=== PATIENT | male | born 1965 | race Caucasian/White ===

== ENCOUNTER → 2017-06-07 06:32 | Outpatient (CLI) | payer OTHER, SELFPAY ==
--- NOTE | 2017-06-07 17:37 | STRESSREP ---
Stress Test Report Exercise myocardial perfusion stress test. 52-year-old man with a history of chest pain. Medications Cartia flecainide aspirin. Chest protocol: EKG demonstrates normal sinus rhythm with a rate of 69 bpm. Resting blood pressure is 130/80 mmHg. The patient exercised according to the regular Dominic protocol for total duration of 11 minutes completing 2 minutes into stage IV of the Dominic protocol. The maximum heart rate attained was 155 bpm which was 91% of the maximum predicted heart rate the maximum workload attained was 13.4 metabolic equivalents. At rest there were no ST or T-wave changes noted suggest ischemia at peak exercise upsloping ST changes only were noted we did not meet the criteria for ischemia. No clinical angina was noted the test was terminated due to leg fatigue. The resting blood pressure was 130/80 mmHg with a peak blood pressure 164/90 mmHg rate pressure product was 22,400. Myocardial perfusion protocol. 14.8 mCi of technetium 99m sestamibi was injected at rest. The patient then exercised according to the regular Dominic protocol for 11 minutes attaining 91% of the maximum predicted heart rate. At peak exercise 44.5 mCi of technetium 99m sestamibi was injected. Stress images were obtained. Stress and rest images were reconstructed and compared in the short axis vertical long and horizontal long axis. Gated images were also obtained. Perfusion SPECT analysis: Review of the stress images demonstrate normal uptake of tracer noted in all areas of the myocardium. The resting images similarly demonstrate normal uptake of tracer noted in all areas of the myocardium. No areas of reversibility are noted suggest ischemia. There is mild anterior breast wall attenuation noted on the stress and resting images. Gated SPECT analysis: The gated ejection fraction is noted to be 74% with no regional wall motion abnormalities present. Conclusion: Normal exercise myocardial perfusion stress test at a high workload with no evidence of ischemia. Preserved ejection fraction.
== END ==
PROVIDERS: Family Provider Family Medicine; PCP Family Medicine; Visit Provider Physician Assistant
DX: R07.2 Precordial pain (principal)
CPT/HCPCS: 78452; 93017; A9500; A4216

== ENCOUNTER 2021-03-21 11:34 | Emergency (ER) | payer OTHER, SELFPAY ==
[2021-03-21 11:35] VITALS: BP 143/92; PULSE 77; RESP 16; TEMP 36.1; O2SAT 97; BMI 33.2
--- NOTE | 2021-03-21 11:54 | EKG12_ITS ---
Test Reason : AFIB Blood Pressure : / mmHG Vent. Rate : 061 BPM Atrial Rate : 061 BPM P-R Int : 160 ms QRS Dur : 088 ms QT Int : 414 ms P-R-T Axes : 002 053 039 degrees QTc Int : 416 ms Sinus rhythm with Premature atrial complexes Otherwise normal ECG Confirmed by JO-ANN KEEN, SHERRI ([id number]), company accountant UCHE WHITLOCK ([id number]) on 03/23/2021 10:21:40 AM Referred By: CB/HUGH Confirmed By:SHERRI BUSCH MD
--- NOTE | 2021-03-21 11:54 | RAD_ITS ---
STUDY: X-RAY CHEST REASON FOR EXAM: Male, 56 years old. Chest pain TECHNIQUE: Single AP portable view of the chest. COMPARISON: None. FINDINGS: No focal infiltrate is seen. There is no demonstrated pleural abnormality. Normal size heart. Normal mediastinum and renea. Normal visualized pulmonary arteries. Normal visualized aortic arch and descending thoracic aorta. Normal visualized thoracic spine. Normal visualized ribs, clavicles, and shoulders. There is no demonstrated abnormality of the visualized soft tissue structures of the upper abdomen. RAD/Chest 1 View (Portable) IMPRESSION: No active pulmonary disease. Electronically Signed: Yoel Harman, at 12:32 EST Tel , Service support ,
[2021-03-21 12:22] LABS: Absolute Lymphocyte Count 1.35 X10^3/uL (0.83-4.51); Absolute Neutrophil Count 3.1 X10^3/uL (2.0-7.7); Basophil# 0.04 X10^3/uL; Basophil% 0.7 % (0-1); Eosinophil# 0.05 X10^3/uL; Eosinophils% 0.9 % (0-5); Hematocrit 47.1 % (40-54); Hemoglobin 15.6 g/dL (13.0-16.5); Lymphocyte # 1.35 X10^3/ul (0.83-4.51); Lymphocyte % 25.1 % (19-41); Mean Corp Hgb Conc 33.1 g/dL (32-36); Mean Corpuscular Hgb 29.8 pg (27.0-32.0); Mean Corpuscular Volume 90.1 fL (80-94); Monocyte# 0.83 X10^3/uL; Monocyte% 15.4 % (0-10); NRBC Flagged by Analyzer 0 % (0-5); Neutrophil % 57.7 % (47-70); Platelet Count 212 K/mm3 (150-450); RBC Distribution Width SD 42.5 fl (35.1-43.9); Red Blood Count 5.23 M/mm3 (4.6-6.2); White Blood Count 5.4 K/mm3 (4.4-11.0)
[2021-03-21 12:26] LABS: International Normalized Ratio 0.9
[2021-03-21 12:34] LABS: Anion Gap 7 (5-15); BUN 13 mg/dL (7-18); BUN/Creat Ratio 15.4 RATIO (10-20); Calcium,Total 10.2 mg/dL (8.5-10.1); Chloride 107 mmol/L (98-107); Creatinine, Serum 0.85 mg/dL (0.70-1.30); EST Glomerular Filtration Rate 100 mL/min (>60); Est Glom Filt Rate - Afr Amer 121 mL/min (>60); Estimated Creatinine Clearance 109.05 ml/min; Glucose 104 mg/dL (74-106); Potassium 3.8 mmol/L (3.5-5.1); Sodium Level 143 mmol/L (136-145); Troponin-I HS < 3 pg/mL (3.0-78.0)
--- NOTE | 2021-03-21 13:51 | ED.VIS.CHEST ---
HPI History of Present Illness Chief Complaint: Chest Pain Narrative Narrative: 56-year-old male presenting with epigastric burning which has been present for 32 hours. He thinks he is in atrial fibrillation which you have a history of he is currently on flecainide and Cardizem. Patient saw his underwriting account representative this last week and was told he was doing well. Patient has had intermittent A. fib symptoms but states that he has never had it last this long. He denies chest pressure or shortness of breath. He denies fever, chills, cough. He is not had any lightheadedness or dizziness. Denies history of DVT or risk factors. Patient is currently not anticoagulated. PFSH PFSH Home Medications atenolol 50 mg PO DAILY 10/03/13 [History Last Taken Unknown] magnesium oxide 400 mg PO DAILY #30 tablet 10/03/13 [Rx Last Taken Unknown] Allergy/AdvReac Type Severity Reaction Status Date / Time No Known Allergies Allergy Verified 10/03/13 15:57 Social History Smoking Status: Current some day smoker tobacco type: cigarettes ROS ROS ED Constitutional Constitutional ED: Denies chills or fever(s) Eyes Eyes: Denies blurry vision or change in vision ENT ENT ED: Denies rhinorrhea or sore throat Cardiovascular Cardiovascular: Reports as per HPI Respiratory/Chest Respiratory/Chest: Denies cough, dyspnea or sputum Gastrointestinal Gastrointestinal: Denies abdominal pain, nausea or vomiting Genitourinary Genitourinary ED: Denies dysuria or hematuria Musculoskeletal Musculoskeletal: Denies arthralgias or myalgias Integumentary Denies rash Neurologic Neurologic: Denies headache(s) or weakness EXAM Physical Exam Const Vital Signs: 03/21/21 11:35 03/21/21 12:17 03/21/21 13:20 Temperature 97.0 F L Temperature Source Temporal Pulse Rate 77 Respiratory Rate 16 Respiratory Effort Normal Non-Labored Blood Pressure 143/92 H Blood Pressure Mean 109 Pulse Ox 97 Oxygen Delivery Method Room Air Room Air Positive well developed General Appearance ED: well developed and NAD; Negative for pallor HEENT Reports moist mucous membranes normocephalic and atraumatic Eyes PERRL Chest Wall inspection of chest normal and palpation of chest normal Resp normal respiratory effort Effort and Inspection: respiratory distress Cardio regular rate and regular rhythm GI normal to inspection, nondistended, normoactive bowel sounds Neuro oriented x3 and CN's II-XII intact bilaterally Sensorium / Orientation: awake Psych mental status grossly normal Skin General Skin Exam: Negative for jaundice or pallor Heart Score History: Slightly/Non-Suspicious ECG: Normal Age: </= 45 years Risk Factors: 1 or 2 Risk Factors Troponin: </= Normal Limit Score: 1 MDM MDM MDM Narrative Medical decision making narrative: Patient presented with epigastric burning which does not sound like cardiac related chest pain. He is concerned he is in atrial fibrillation however his EKG is sinus rhythm with a ventricular rate of 61 bpm with PACs on my interpretation. Chest x-ray shows no acute cardiopulmonary process on my interpretation of the radiologist does agree. CBC is normal. BMP is normal. Troponin is less than 3 and after 32 hours of constant sensation in his chest I believe this rules him out. No history of DVT and no risk factors. Patient counseled that his symptoms of palpitations are likely due to the PACs. Is recommended that he see his underwriting account representative or his primary care physician in follow-up. He may need a Holter monitor to check his rhythms. He is to continue his medications at home. Patient given return precautions. Impression: 1. Chest pain noncardiac 2. PACs 3. History of A. fib Lab Data Labs: Laboratory Results - last 24 hr 03/21/21 03/21/21 03/21/21 12:10 12:10 12:10 WBC 5.4 RBC 5.23 Hgb 15.6 Hct 47.1 MCV 90.1 MCH 29.8 MCHC 33.1 RDW Std Deviation 42.5 RDW Coeff of Carlos 13.0 Plt Count 212 MPV 12.0 Immature Gran % (Auto) 0.200 Neut % (Auto) 57.7 Lymph % (Auto) 25.1 Arthur % (Auto) 15.4 H Eos % (Auto) 0.9 Baso % (Auto) 0.7 Absolute Neuts (auto) 3.1 Absolute Lymphs (auto) 1.35 Nucleated RBC % 0 PT 12.0 INR 0.9 Sodium 143 Potassium 3.8 Chloride 107 Carbon Dioxide 29.0 Anion Gap 7 BUN 13 Creatinine 0.85 Estim Creat Clear Calc 109.05 Est GFR (MDRD) Af Amer 121 Est GFR (MDRD) Non-Af 100 BUN/Creatinine Ratio 15.4 Glucose 104 Calcium 10.2 H Troponin I High Sens < 3 L Radiography Diagnostic Testing: Clinical Impression(s) from Imaging Studies Chest X-Ray 03/21/21 11:54 IMPRESSION: No active pulmonary disease. Electronically Signed: Yoel Harman, at 12:32 EST Tel , Service support , Discharge Plan Triage Chief Complaint: Chest Pain ED Provider: Thomas Monterroso Dx/Rx/DC Orders Instructions: ED AFIB, ED Chest Pain, Noncardiac Prescriptions: No Action atenolol 50 MG tablet 50 mg PO DAILY RF: 0 magnesium oxide 400 MG tablet 400 mg PO DAILY Qty: 30 RF: 0 Primary Care Provider: Parish Borrero Referrals: Parish Borrero MD [Primary Care Provider] - Disposition Disposition: Home, Self Care
[2021-03-21 14:15] VITALS: BP 123/91; PULSE 65; RESP 17; O2SAT 97
== END 2021-03-21 14:20 | disposition home or self-care (01) ==
PROVIDERS: Emergency Provider Student in an Organized Health Care Education/Training Program; PCP Family Medicine
DX: R07.89 Other chest pain (principal); I49.1 Atrial premature depolarization; I48.91 Unspecified atrial fibrillation; Z79.899 Other long term (current) drug therapy; F17.210 Nicotine dependence, cigarettes, uncomplicated
CPT/HCPCS: 71045; 80048; 84484; 85025; 85610; 93005; 99284; A4216

== ENCOUNTER 2024-02-02 17:11 | Emergency (ER) | payer OTHER, SELFPAY ==
[2024-02-02 17:12] VITALS: BP 127/96; PULSE 82; RESP 16; TEMP 37.1; O2SAT 98; BMI 35.5
--- OUTSIDE RECORDS SUMMARY | 2024-02-02 20:10 | XMS RPT_ITS | CCD ---
Author Organization [facility] CliniSyin Care Team Providers Care Railroad Dispatcher Name Role Phone KEEGAN LANCE Unavailable Unavailable ADITI CARTAGENA Unavailable Unavailable KEEGAN LANCE Unavailable Unavailable KEEGAN LANCE Unavailable Unavailable Parish Crouch MD Primary Care Provider Elvin Vaca DO Unavailable Parish Crouch MD Primary Care Provider Elvin Vaca DO Unavailable Parish Crouch MD Primary Care Provider [phone] Parish Crouch MD Primary Care Provider [phone] Elvin Vaca DO Unavailable Elvin Vaca DO Unavailable Darin Marte MD Unavailable Parish Crouch MD Primary Care Provider Elvin Vaca DO Unavailable PARISH CROUCH Primary Care Unavailable PARISH CROUCH Referring Unavailable PARISH CROUCH Attending Unavailable PARISH CROUCH Referring Unavailable PARISH CROUCH Primary Care Unavailable PARISH CROUCH Primary Care Unavailable ELVIN VACA Attending Unavailab le PARISH CROUCH Primary Care Unavailable PARISH CROUCH Attending Unavailable PARISH CROUCH Primary Care Unavailable PRAISH CROUCH Referring Unavailable PARISH CROUCH Primary Care Unavailable GLENN BALDWIN Attending Unavailable SUZE VEGA Referring Unavailable PARISH CROUCH Primary Care Unavailable PARISH CROUCH Referring Unavailable SUZE VEGA Attending Unavailable Allergies Allergy Classification Reported Allergen(s) Allergy Type Date of Onset Reaction(s) Facility (2 sources) Seasonal allergy; Translations: [SEASONAL ALLERGIES] Propensity to adverse reactions (disorder) 6 [facility] Repository Medications Current Medications Medication Drug Class(es) Dates Sig (Normalized) Sig (Original) allopurinol 300 mg oral tablet (20 sources) Xanthine Oxidase Inhibitor Start: 01-20-2021 End: 12-30-2023 take 1 tablet by mouth once daily allopurinol (ZYLOPRIM) 300 mg tablet Indications: 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 (HCC) , Gouty arthropathy Take 1 tablet by mouth once daily. 30 tablet 11 12/30/2023 Active Comment on above: Take 1 tablet by kim th once daily. apixaban 5 mg oral tablet (20 sources) Factor Xa Inhibitor Start: 05-19-2022 End: 03-29-2023 take 1 tablet by mouth twice daily apixaban (ELIQUIS) 5 mg tab(s) Indications: 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 (HCC) Take 1 tablet by mouth two times a day. 180 tablet 3 03/29/2023 Active Start: 04-17-2021 End: 05-17-2022 take 1 tablet by mouth twice daily apixaban (ELIQUIS) 5 mg tab(s) Indications: 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 (HCC) Take 1 tablet by mouth twice daily. 180 tablet 3 04/17/2021 05/17/2022 Discontinued Comment on above: Take 1 tablet by kim twice daily. aspirin 81 mg delayed release oral tablet (20 sources) Platelet Aggregation Inhibitor, Nonsteroidal Anti-inflammatory Drug Start: 07-09-19 15 take 1 tablet by mouth once daily aspirin, enteric coated (ASPIRIN, ENTERIC COATED) 81 mg EC tablet Take 1 tablet by mouth once daily. 0 07/08/2014 Active Comment on above: Take 1 tablet by kim th once daily. cetirizine hydrochloride 10 mg oral tablet (20 sources) Histamine-1 Receptor Antagonist take 1 tablet by mouth once daily cetirizine (ZYRTEC) 10 mg tablet Take 10 mg by mouth once daily. Active Comment on above: Take 10 mg by mouth once daily. cholecalciferol 0.025 mg oral capsule (20 sources) Vitamin D Start: 08-21-19 18 take 1 capsule by mouth once daily Cholecalciferol, Vitamin D3, 1,000 unit cap Take 1 capsule by mouth once daily. 08/20/2017 Active Comment on above: Take 1 capsule by mo [facility] once daily. 24 hr dilTIAZem hydrochloride 120 mg extended release oral capsule (20 sources) Calcium Channel Junie Start: 02-10-20 End: 02-12-20 take 1 capsule by mouth once daily dilTIAZem XR (DILACOR XR) 120 mg 24 hr capsule Take 1 capsule by mouth once daily. 90 capsule 3 02/11/2023 Active Start: 09-15-2020 End: 09-21-2021 take 1 capsule by mouth once daily dilTIAZem CD (CARTIA XT) 180 mg 24 hr capsule Take 1 capsule by mouth once daily. 90 capsule 3 09/21/2021 Active Comment on above: Take [address] [facility] once daily. iv contrast (will be provided with radiology test) (1 source) Start: End: inject 1 dose intravenously once iv contrast (will be provided with radiology test) Indications: 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 (HCC) , assisted current use of anticoagulant CT Pulm Vein - No IV access, insert saline lock prior to the sedation, infusion, injection for imaging exam. Discontinue saline lock post exam. If Pt. has a central line or IVAD, may access for administration according to line specific nursing protocol. Once exam is complete flush line and de-access according to line specific nursing protocol in the CT contrast administration guidelines link. 1 Each 0 07/07/2021 07/08/2021 Active Comment on above: CT Pulm Vein - No IV access, insert saline lock prior to the sedation, infusion, injection for imaging exam. Discontinue saline lock post exam. If Pt. has a central line or IVAD, may access for administration according to line specific nursing protocol. Once exam is complete flush line and de-access according to line specific nursing protocol in the CT contrast administration guidelines link. lovastatin 10 mg oral tablet (20 sources) HMG-CoA Reductase Inhibitor Start: 023 End: 024 take 1 tablet by mouth once daily at bedtime for hyperlipidemia lovastatin (MEVACOR) 10 mg tablet Indications: Other hyperlipidemia Take 1 tablet by mouth daily at bedtime. For cholesterol. 90 tablet 3 12/15/2023 Active Start: 10-20-2020 End: 12-15-2022 take 1 tablet by mouth once daily at bedtime for hyperlipidemia lovastatin (MEVACOR) 10 mg tablet Indications: Other hyperlipidemia Take 1 tablet by mouth daily at bedtime. For cholesterol. 90 tablet 3 11/13/2021 12/15/2022 Discontinued Comment on above: Take 1 tablet by kim th daily at bedtime. For cholesterol. Magnesium (20 sources) Start: 07-08-2014 Magnesium 250 mg tab Take 1 tablet by mouth. 0 07/08/2014 Suspended Start: 07-08-2014 Magnesium 250 mg tab Take 1 tablet by mouth. 0 07/08/2014 Active Comment on above: Take 1 tablet by kim th. omeprazole 20 mg delayed release oral capsule (20 sources) Proton Pump Inhibitor Start: 04-14-19 End: 03-28-20 take 1 capsule by mouth once daily omeprazole (PRILOSEC) 20 mg capsule Take 1 capsule by mouth once daily. 30 capsule 11 03/29/2023 03/28/2024 Active Comment on above: Take 1 capsule by mo [facility] once daily. Take 20 mg by mouth once daily. sildenafil 25 mg oral tablet (1 source) Phosphodiesterase 5 Inhibitor Start: 02-01-20 take 1 tablet by mouth once daily as needed sildenafil (VIAGRA) 25 mg tablet Take 1 tablet by mouth once daily as needed. 3 tablet 3 02/01/2024 Active Completed/Discontinued Medications Medication Drug Class(es) Dates Sig (Normalized) Sig (Original) cyclobenzaprine hydrochloride 10 mg oral tablet (9 sources) Muscle Relaxant Start: 06-22-2022 End: 01-18-2023 take 1 tablet by mouth three times daily as needed cyclobenzaprine (FLEXERIL) 10 mg tablet Indications: Chest wall pain Take 1 tablet by mouth three times daily as needed. 30 tablet 06/22/2022 01/18/2023 Discontinued Comment on above: Take 1 tablet by kim three times daily as needed. flecainide acetate 150 mg oral tablet (20 sources) Antiarrhythmic Start: 04-15-2021 take 1 tablet by mouth twice daily flecainide (TAMBOCOR) 150 mg tablet Take 1 tablet by mouth twice daily. 180 tablet 3 04/15/2021 Active Comment on above: Take 1 tablet by kim twice daily. pantoprazole 40 mg delayed release oral tablet (20 sources) Proton Pump Inhibitor Start: 07-02-2021 End: 07-30-2021 take 1 tablet by mouth once daily, then take 6 tablets by mouth in the morning pantoprazole DR (PROTONIX) 40 mg tablet Take 1 tablet by mouth DAILY (6 AM) for 28 days. 28 tablet 0 07/02/2021 Active Comment on above: Take 1 tablet by kim th DAILY (6 AM) for 28 days. perflutren lipid microspheres 1.3 mL in NaCl (PF) 0.9% 10 mL injection (DEFINITY) (20 sources) Start: 11-27-2021 End: 02-26-2023 perflutren lipid microspheres 1.3 mL in NaCl (PF) 0.9% 10 mL injection (DEFINITY) Start: 07-07-2021 End: 10-06-2022 perflutren lipid microsphere s 1.3 mL in NaCl (PF) 0.9% 10 mL injection (DEFINITY) 125 ml sodium chloride 9 mg/ ml prefilled syringe (20 sources) Start: 07-07-2021 End: 02-26-2023 sodium chloride 0.9 % (flush ) 10 mL (BD POSIFLUSH) Problems Active Problems Problem Classification Problem Date Documented Date Episodic/Chronic Abdominal hernia (1 source) Umbilical hernia; Translations: [Umbilical hernia without obstruction or gangrene] Episodic Cardiac dysrhythmias (20 sources) 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; Translations: [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] Onset: 01-15-2014 Resolved: 09-30-2023 Chronic Cardiac dysrhythmias (1 source) Palpitations; Translations: [Palpitations] 02-01-2024 Episodic Disorders of lipid metabolism (20 sources) Mixed hyperlipidemia; Translations: [Mixed hyperlipidemia] Onset: 01-07-2010 03-29-2019 Chronic Esophageal disorders (7 sources) Gastroesophageal reflux disease without esophagitis; Translations: [Gastro-esophageal reflux disease without esophagitis] Onset: 05-05-2023 09-30-2023 Chronic Essential hypertension (20 sources) Essential (primary) hypertension; Translations: [Essential hypertension] Onset: 02-18-2017 03-29-2019 Chronic Gout and other crystal arthropathies (20 sources) Gouty arthropathy; Translations: [Gout, unspecified] Onset: 09-07-2006 Resolved: 08-22-2018 05-30-2017 Chronic Immunizations and screening for infectious disease (1 source) Vaccination needed; Translations: [Encounter for immunization] 09-30-2023 Episodic Other aftercare (20 sources) Patient encounter status; Translations: [Encounter for therapeutic drug level monitoring] Onset: 03-17-2021 03-17-2021 Episodic Other aftercare (20 sources) Long-term current use of anticoagulant; Translations: [assisted (current) use of anticoagulants] Onset: 06-09-2021 06-09-2021 Episodic Other connective tissue disease (1 source) Myofascial pain syndrome of thoracic spine; Translations: [Myalgia, other site] Episodic Other lower respiratory disease (1 source) Dyspnea on exertion; Translations: [Other forms of dyspnea] 02-01-2024 Episodic Other nervous system disorders (20 sources) Syringomyelia and syringobulbia; Translations: [Syringomyelia and syringobulbia] 06-30-2021 Chronic Other nutritional; endocrine; and metabolic disorders (20 sources) Obese class I; Translations: [Obesity, unspecified] Onset: 07-01-2021 07-01-2021 Chronic Other nutritional; endocrine; and metabolic disorders (1 source) Obesity, unspecified; Translations: [Obesity, Class I, BMI 30-34.9] Onset: 07-01-2021 Chronic Other skin disorders (1 source) Disorder of subcutaneous tissue; Translations: [Disorder of the skin and subcutaneous tissue, unspecified] Episodic Other upper respiratory disease (20 sources) Allergic rhinitis; Translations: [Allergic rhinitis, unspecified] Onset: 04-18-2006 04-18-2006 Chronic Residual codes; unclassified (20 sources) H/O: atrial fibrillation; Translations: [Other specified postprocedural states] Onset: 09-21-2021 Episodic Spondylosis; intervertebral disc disorders; other back problems (2 sources) Degeneration of thoracic intervertebral disc; Translations: [Other intervertebral disc degeneration, thoracic region] Chronic Spondylosis; intervertebral disc disorders; other back problems (2 sources) Backache; Translations: [Dorsalgia, unspecified] Episodic Unclassified (1 source) Unknown / UNK(Unknown) Onset: 02-18-2017 Past or Other Problems Problem Classification Problem Date Documented Date Episodic/Chronic Diabetes mellitus without complication (20 sources) Hyperglycemia; Translations: [Hyperglycemia, unspecified] Onset: 05-09-2020 05-09-2020 Episodic Diseases of mouth; excluding dental (7 sources) Lesion of lip; Translations: [Diseases of lips] Onset: 10-02-2014 Resolved: 08-22-2018 08-22-2018 Episodic Genitourinary symptoms and ill-defined conditions (20 sources) Microscopic hematuria; Translations: [Other microscopic hematuria] Onset: 09-24-2020 09-24-2020 Episodic Nonspecific chest pain (8 sources) Chest pain; Translations: [Chest pain] Onset: 06-07-1997 Resolved: 08-22-2018 08-22-2018 Episodic Other aftercare (6 sources) Other exterminator helper (current) drug therapy; Translations: [Long-term (current) use of other medications] Onset: 05-05-2023 05-05-2023 Episodic Other aftercare (6 sources) Long-term current use of drug therapy; Translations: [Encounter for therapeutic drug level monitoring] Onset: 03-17-2021 03-17-2021 Episodic Other aftercare (1 source) assisted (current) use of anticoagulants; 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] Onset: 06-09-2021 Episodic Other and unspecified benign neoplasm (20 sources) History of polyp of colon; Translations: [Personal history of colonic polyps] Onset: 02-22-2018 04-19-2018 Episodic Other and unspecified benign neoplasm (1 source) Personal history of colonic polyps; Translations: [History of colonic polyps] Onset: 04-19-2018 Episodic Other circulatory disease (1 source) Personal history of other diseases of the circulatory system; Translations: [S/P ablation of atrial fibrillation] Onset: 09-21-2021 Episodic Other endocrine disorders (7 sources) Hypoglycemia; Translations: [Hypoglycemia, unspecified] Onset: 05-09-2020 Resolved: 05-09-2020 05-09-2020 Chronic Other lower respiratory disease (20 sources) Snoring; Translations: [Snoring] Onset: 08-14-2009 08-14-2009 Episodic Other screening for suspected conditions (not mental disorders or infectious disease) (8 sources) Other specified abnormal findings of blood chemistry; Translations: [Other abnormal blood chemistry] Onset: 01-15-2014 Resolved: 08-22-2018 08-22-2018 Episodic Residual codes; unclassified (1 source) Other specified postprocedural states; Translations: [S/P ablation of atrial fibrillation] Onset: 09-21-2021 Episodic Results Test Name Value Interpretation Reference Range Facility [facility] 01-16-2024 CNPN Telephone (FAMWS) JOSH SHEPPARD ([id number]) 1965 M Date Time Provider Department 01/16/24 EUNICE FELICIANO [facility] During your visit today, we recorded the following information about you: Emely John MA 01/16/2024 5:17 PM Signed ----- Message from Eunice Feliciano sent at 01/16/2024 4:58 PM EDT ----- Heart monitor was normal. No atrial fibrillation. Some extra beats here and there but nothing concerning. There was 1 episode of a 5 beats fast run that was Ventricular in nature. Tessie Kay MA 01/17/2024 9:39 AM Signed Pt notified of results via [employer]. Tessie Kay Ma Allergies As of Date: 01/16/2024 Noted Allergy Reaction SEASONAL ALLERGIES 09/22/2015 16 - Unknown Comments: Sinus congestion Date Reviewed: 09/30/2023 Reviewed by: Berkley Loja MA - Fully Assessed Reason for Visit: Results [95] Prescriptions as of 01/17/2024 - allopurinol (ZYLOPRIM) 300 mg tablet Take 1 tablet by mouth once daily. - lovastatin (MEVACOR) 10 mg tablet Take 1 tablet by mouth daily at bedtime. For cholesterol. - apixaban (ELIQUIS) 5 mg tab(s) Take 1 tablet by mouth two times a day. - omeprazole (PRILOSEC) 20 mg capsule Take 1 capsule by mouth once daily. - dilTIAZem XR (DILACOR XR) 120 mg 24 hr capsule Take 1 capsule by mouth once daily. - cetirizine (ZYRTEC) 10 mg tablet Take 10 mg by mouth once daily. - Cholecalciferol, Vitamin D3, 1,000 unit cap Take 1 capsule by mouth once daily. - aspirin, enteric coated (ASPIRIN, ENTERIC COATED) 81 mg EC tablet Take 1 tablet by mouth once daily. - Magnesium 250 mg tab Take 1 tablet by mouth. Problem List As Of Date 01/16/2024 Noted Resolved Chest pain [786.5] 06/07/1997 08/22/2018 Class: Chronic ALLERGIC RHINITIS NOS [J30.9] 04/18/2006 Gouty arthropathy [M10.9] 09/07/2006 Snoring [R06.83] 08/14/2009 Gout [M10.9] 08/14/2009 08/22/2018 Mixed hyperlipidemia [E78.2] 01/07/2010 LFT elevation [R79.89] 01/15/2014 08/22/2018 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 (HCC) [I48.0] 01/15/2014 Lip lesion [K13.0] 10/02/2014 08/22/2018 Syringomyelia and syringobulbia (HCC) [G95.0] History of colonic polyps [Z86.0100] 02/22/2018 Essential hypertension [I10] 03/29/2019 Hypoglycemia [E16.2] 05/09/2020 05/09/2020 Hyperglycemia [R73.9] 05/09/2020 Microscopic hematuria [R31.29] 09/24/2020 Encounter for monitoring flecainide therapy [Z5*03/17/2021 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 [Z79.01] 06/09/2021 Obesity, Class I, BMI 30-34.9 [E66.811] 07/01/2021 S/P ablation of atrial fibrillation [Z98.890, Z*09/21/2021 Arrhythmia [I49.9] 11/04/2021 09/30/2023 Gastroesophageal reflux disease [K21.9] 05/05/2023 Long-term current use of proton pump inhibitor *05/05/2023 Encounter Status:Closed by TESSIE KAY on 01/17/24 [facility] CNOVon 09-30-2023 CNOV Office Visit (FAMPWS ) JOSH SHEPPARD ([id number]) 1965 M Date Time Provider Department 09/30/23 8:40 AM PARISH CROUCH During your visit today, we recorded the following information about you: Pulse Blood pressure Weight Height 68/minute 104/72 112 kg 1.829 m Parish Crouch MD 09/30/2023 12:02 PM Signed Patient presents with: 6 Month Exam HPI: Patient presents today for office visit for follow up. GERD: Stopped Omeprazole a few months ago. Doing well. Feels it was giving him increased heartburn. Did have egd. . HLD: Continues on Lovastatin 10 mg daily No myalgias Does not watch his diet Does not exercise GOUT: Takes Allopurinol daily No recent flares A-fib: Continues on Diltiazem and Eliquis Has palpitations. Has not discussed with cardiology. Did tell cardiology at one point. Has been going on for some time. Denies syncope When asked about chest pain he states he thinks it's more indigestion. Doesn't get too often he says. Denies shortness of breath. Follows with Cardiology Next OV 01/19/24 No bleeding issues. Sugars are borderline. Latest Ref Rng 09/28/2023 WBC 3.70 - 11.00 k/uL 6.17 RBC 4.20 - 6.00 m/uL 5.37 Hemoglobin 13.0 - 17.0 g/dL 16.0 Hematocrit 39.0 - 51.0 % 48.4 MCV 80.0 - 100.0 fL 90.1 MCH 26.0 - 34.0 pg 29.8 MCHC 30.5 - 36.0 g/dL 33.1 RDW-CV 11.5 - 15.0 % 12.8 Platelet Count 150 - 400 k/uL 200 MPV 9.0 - 12.7 fL 12.1 Neut% % 53.6 Abs Neut (ANC) 1.45 - 7.50 k/uL 3.31 Lymph% % 33.1 Abs Lymph 1.00 - 4.00 k/uL 2.04 [place]% % 12.3 Abs [place] <0.87 k/uL 0.76 Eosin% % 0.5 Abs Eosin <0.46 k/uL 0.03 Baso% % 0.5 Abs Baso <0.11 k/uL 0.03 Immature Gran % % 0.0 IMMATURE GRANS (ABS) <0.10 k/uL <0.03 NRBC /100 WBC 0.0 Absolute nRBC <0.01 k/uL <0.01 DTYPE Auto Hemoglobin A1C 4.3 - 5.6 % 6.0 (H) Estimated Average Glucose mg/dL 126 Legend: (H) High MEDICATIONS: Current Outpatient Medications Medication Sig apixaban (ELIQUIS) 5 mg tab(s) Take 1 tablet by mouth two times a day. dilTIAZem XR (DILACOR XR) 120 mg 24 hr capsule Take 1 capsule by mouth once daily. allopurinol (ZYLOPRIM) 300 mg tablet Take 1 tablet by mouth once daily. lovastatin (MEVACOR) 10 mg tablet Take 1 tablet by mouth daily at bedtime. For cholesterol. cetirizine (ZYRTEC) 10 mg tablet Take 10 mg by mouth once daily. Cholecalciferol, Vitamin D3, 1,000 unit cap Take 1 capsule by mouth once daily. aspirin, enteric coated (ASPIRIN, ENTERIC COATED) 81 mg EC tablet Take 1 tablet by mouth once daily. Magnesium 250 mg tab Take 1 tablet by mouth. omeprazole (PRILOSEC) 20 mg capsule Take 1 capsule by mouth once daily. (Patient not taking: Reported on 09/30/2023) No current facility-administered medications for this visit. 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 PAST SURGICAL HISTORY Procedure Laterality Date COLONOSCOPY FLX DX W/COLLJ SPEC WHEN PFRMD 09/15/2017 Colonoscopy PAST SURGICAL HISTORY OF 1992 ORIF left wrist SKIN SURGERY HX skin cancer removal on face FAMILY HISTORY Problem Relation Age of Onset Diabetes Mother other (Other) Mother TIA Hypertension Father Stroke Father 78 Cancer Paternal Grandmother stomach Stroke Maternal Grandfather No Known Problems Sister Cancer Brother lymphoma Heart Nephew AFIB Social History Tobacco Use Smoking status: Former Smokeless tobacco: Current Types: Chew Vaping Use Vaping Use: Never used Substance Use Topics Alcohol use: Not Currently Alcohol/week: 5.0 standard drinks of alcohol Types: 5 Cans of Beer (12oz) per week Drug use: No Reviewed current medications, allergies, past medical history, surgical history, family history and social history today. REVIEW OF SYSTEMS All other reviewed and negative other than HPI. HEALTH MAINTENANCE: Reviewed health maintenance issues today and recommended the following in detail. Hepatitis B Vaccine(1 of 3 - 19+ 3-dose series) Never done Shingrix Vaccine(1 of 2) Never done DTaP,Tdap,Td Vaccine(2 - Td or Tdap) due on 06/08/2021 Covid-19 Vaccine(2022- season) Never done Behavioral Health Screening Never done Had discussion with patient regarding risks and benefits of prostate screening. Allowed them to decide if they wished to proceed with screening including MARIELOS and PSA. VITALS: BP 104/72 Pulse 68 Ht 182.9 cm (6') Wt 112 kg (247 lb) SpO2 96% BMI 33.50 kg/m? Last 4 Encounter Wt Readings: Date: Wt: 09/30/2023 112 kg (247 lb) 04/21/2023 119.9 kg (264 lb 6.4 oz) 03/29/2023 116.1 (more content not included)... Normal [facility] CBC W Auto Differential pane l (Bld)on 09-28-2023 Basophils (Bld) [#/Vol] 0.03 10*3/uL Normal <0.11 [facility] Comment on above: Order Comment: Speci men Type: BLOOD SPECIMENOrdering Facility: [facility] Address: [address] [place] [address] Performed By: #### 5 7021-8 ####[facility] LABCLIA [id number] [place] [address] [place] Basophils/100 WBC (Bld) 0.5 % Normal [facility] Comment on above: Order Comment: Speci men Type: BLOOD SPECIMENOrdering Facility: [facility] Address: [address] [place] [address] Performed By: #### 5 7021-8 ####[facility] LABCLIA [id number] [place] [address] [place] Differential cell count method Nom (Bld) Auto Normal [facility] Comment on above: Order Comment: Speci men Type: BLOOD SPECIMENOrdering Facility: [facility] Address: [address] [place] [address] Performed By: #### 5 7021-8 ####[facility] LABCLIA [id number] [place] [address] [place] Eosinophils (Bld) [#/Vol] 0.03 10*3/uL Normal <0.46 [facility] Comment on above: Order Comment: Speci men Type: BLOOD SPECIMENOrdering Facility: [facility] Address: [address] [place] [address] Performed By: #### 5 7021-8 ####[facility] LABCLIA [id number] [place] [address] [place] Eosinophils/100 WBC (Bld) 0.5 % Normal [facility] Comment on above: Order Comment: Speci men Type: BLOOD SPECIMENOrdering Facility: [facility] Address: [address] [place] [address] Performed By: #### 5 7021-8 ####[facility] LABCLIA [id number] [place] [address] [place] Erythrocyte distribution width (RBC) [Ratio] 12.8 % Normal 11.5-15.0 [facility] Comment on above: Order Comment: Speci men Type: BLOOD SPECIMENOrdering Facility: [facility] Address: [address] [place] [address] Performed By: #### 5 7021-8 ####[facility] LABCLIA [id number] [place] [address] [place] Hematocrit (Bld) [Volume fraction] 48.4 % Normal 39.0-51.0 [facility] Comment on above: Order Comment: Speci men Type: BLOOD SPECIMENOrdering Facility: [facility] Address: [address] [place] [address] Performed By: #### 5 7021-8 ####[facility] LABCLIA [id number] [place] [address] [place] Hemoglobin (Bld) [Mass/Vol] 16.0 g/dL Normal 13.0-17.0 [facility] Comment on above: Order Comment: Speci men Type: BLOOD SPECIMENOrdering Facility: [facility] Address: [address] [place] [address] Performed By: #### 5 7021-8 ####[facility] LABIA [id number] [place] [address] [place] Immature granulocytes (Bld) [#/Vol] 10*3/uL Normal <0.10 [facility] Comment on above: Order Comment: Speci men Type: BLOOD SPECIMENOrdering Facility: [facility] Address: [address] [place] [address] Performed By: #### 5 7021-8 ####[facility] LABIA [id number] [place] [address] [place] Immature granulocytes/100 WBC (Bld) 0.0 % Normal [facility] Comment on above: Order Comment: Speci men Type: BLOOD SPECIMENOrdering Facility: [facility] Address: [address] [place] [address] Performed By: #### 5 7021-8 ####[facility] LABCLIA [id number] [place] [address] [place] Lymphocytes (Bld) [#/Vol] 2.04 10*3/uL Normal 1.00-4.00 [facility] Comment on above: Order Comment: Speci men Type: BLOOD SPECIMENOrdering Facility: [facility] Address: [address] [place] [address] Performed By: #### 5 7021-8 ####[facility] LABIA [id number] [place] [address] [place] Lymphocytes/100 WBC (Bld) 33.1 % Normal [facility] Comment on above: Order Comment: Speci men Type: BLOOD SPECIMENOrdering Facility: [facility] Address: [address] [place] [address] Performed By: #### 5 7021-8 ####[facility] LABIA [id number] [place] [address] [place] MCH (RBC) [Entitic mass] 29.8 pg Normal 26.0-34.0 [facility] Comment on above: Order Comment: Speci men Type: BLOOD SPECIMENOrdering Facility: [facility] Address: [address] [place] [address] Performed By: #### 5 7021-8 ####[facility] LABIA [id number] [place] [address] [place] MCHC (RBC) [Mass/Vol] 33.1 g/dL Normal 30.5-36.0 [facility] Comment on above: Order Comment: Speci men Type: BLOOD SPECIMENOrdering Facility: [facility] Address: [address] [place] [address] Performed By: #### 5 7021-8 ####[facility] LABIA [id number] [place] [address] [place] MCV (RBC) [Entitic vol] 90.1 fL Normal 80.0-100.0 [facility] Comment on above: Order Comment: Speci men Type: BLOOD SPECIMENOrdering Facility: [facility] Address: [address] [place] [address] Performed By: #### 5 7021-8 ####[facility] LABIA [id number] [place] [address] [place] Monocytes (Bld) [#/Vol] 0.76 10*3/uL Normal <0.87 [facility] Comment on above: Order Comment: Speci men Type: BLOOD SPECIMENOrdering Facility: [facility] Address: [facility] [place] [address] Performed By: #### 5 7021-8 ####[facility] LABCLIA [id number] [place] [address] [place] Monocytes/100 WBC (Bld) 12.3 % Normal [facility] Comment on above: Order Comment: Speci men Type: BLOOD SPECIMENOrdering Facility: [facility] Address: [address] [place] [address] Performed By: #### 5 7021-8 ####[facility] LABCLIA [id number] [place] [address] [place] Neutrophils (Bld) [#/Vol] 3.31 10*3/uL Normal 1.45-7.50 [facility] Comment on above: Order Comment: Speci men Type: BLOOD SPECIMENOrdering Facility: [facility] Address: [address] [place] [address] Performed By: #### 5 7021-8 ####[facility] LABCLIA [id number] [place] [address] [place] Neutrophils/100 WBC (Bld) 53.6 % Normal [facility] Comment on above: Order Comment: Speci men Type: BLOOD SPECIMENOrdering Facility: [facility] Address: [address] [place] [address] Performed By: #### 5 7021-8 ####[facility] LABCLIA [id number] [place] [address] [place] Nucleated RBC (Bld) [#/Vol] 10*3/uL Normal <0.01 [facility] Comment on above: Order Comment: Speci men Type: BLOOD SPECIMENOrdering Facility: [facility] Address: [address] [place] [address] Performed By: #### 5 7021-8 ####[facility] LABCLIA [id number] [place] [address] [place] Nucleated RBC/100 WBC (Bld) [Ratio] 0.0 /100 WBC Normal [facility] Comment on above: Order Comment: Speci men Type: BLOOD SPECIMENOrdering Facility: [facility] Address: [address] [place] [address] Performed By: #### 5 7021-8 ####[facility] LABIA [id number] [place] [address] [place] Platelet mean volume (Bld) [Entitic vol] 12.1 fL Normal 9.0-12.7 [facility] Comment on above: Order Comment: Speci men Type: BLOOD SPECIMENOrdering Facility: [facility] Address: [address] [place] [address] Performed By: #### 5 7021-8 ####[facility] LABIA [id number] [place] [address] [place] Platelets (Bld) [#/Vol] 200 10*3/uL Normal 150-400 [facility] Comment on above: Order Comment: Speci men Type: BLOOD SPECIMENOrdering Facility: [facility] Address: [address] [place] [address] Performed By: #### 5 7021-8 ####[facility] LABIA [id number] [place] [address] [place] RBC (Bld) [#/Vol] 5.37 10*6/uL Normal 4.20-6.00 [facility] Comment on above: Order Comment: Speci men Type: BLOOD SPECIMENOrdering Facility: [facility] Address: [address] [place] [address] Performed By: #### 5 7021-8 ####[facility] LABIA [id number] [place] [address] [place] WBC (Bld) [#/Vol] 6.17 10*3/uL Normal 3.70-11.00 [facility] Comment on above: Order Comment: Nievse cruz Type: BLOOD SPECIMENOrdering Facility: [facility] Address: [address] [place] [address] Performed By: #### 5 7021-8 ####[facility] LABCLIA [id number] [place] [address] [place] [facility] [place] HbA1c (Bld)on 09-28-2023 Average glucose Estimated from glycated hemoglobin (Bld) [Mass/Vol] 126 mg/dL Normal [facility] Comment on above: Order Comment: Nieves cruz Type: BLOOD SPECIMENOrdering Facility: [facility] Address: [address] [place] [address] Result Comment: eAG: (Estimated average glucose) is a calculated value from HgbA1c and is traveling representative of the average blood glucose level in the last 2-3 month period. Performed By: #### 5 5454-3 ####[facility] LABCLIA [id number] [address] STATES OF [facility] HbA1c (Bld) [Mass fraction] 6.0 % High 4.3-5.6 [facility] Comment on above: Order Comment: Nieves cruz Type: BLOOD SPECIMENOrdering Facility: [facility] Address: [address] [place] [address] Result Comment: [employer] [place] Diabetes Association guidelines indicate that patients with HgbA1c in the range 5.7-6.4% are at increased risk for development of diabetes, and intervention by lifestyle modification may be beneficial. HgbA1c greater or equal to 6.5% is considered diagnostic of diabetes. Performed By: #### 5 5454-3 ####[facility] LABCLIA [id number] [place] [id number] [place] Colonoscopyon 05-05-2023 Colonoscopy [place] [facility] Gastrointestinal Endoscopy Patient Name: Josh Sheppard Procedure Date: 05/05/2023 10:34 AM Date of : 1965 Admit Type: Ambulatory Age: 58 Gender: Male Note Status: Finalized Procedure: Colonoscopy Indications: High risk colon cancer surveillance: Personal history of colonic polyps Providers: Glenn Baldwin MD Patient Profile: This is a 58 year old male. Refer to note in patient chart for documentation of history and physical. Last Colonoscopy: September 2017. Referring Physician: Parish Crouch MD (Referring MD) Medicines: Fentanyl 50 micrograms IV, Midazolam 5 mg IV, Diphenhydramine 50 mg IV Complications: No immediate complications. Estimated blood loss: None. Requesting Provider: Procedure: Pre-Anesthesia Assessment: - Prior to the procedure, a History and Physical was performed, and patient medications and allergies were reviewed. The patient's tolerance of previous anesthesia was also reviewed. The risks and benefits of the procedure and the sedation options and risks were discussed with the patient. All questions were answered, and informed consent was obtained. Prior Anticoagulants: The patient has taken Eliquis (apixaban), last dose was day of procedure. ASA Grade Assessment: III - A patient with severe systemic disease. After reviewing the risks and benefits, the patient was deemed in satisfactory condition to undergo the procedure. After I obtained informed consent, the scope was passed under direct vision. Throughout the procedure, the patient's blood pressure, pulse, and oxygen saturations were monitored continuously. The Colonoscope was introduced through the anus and advanced to the cecum, identified by appendiceal orifice and ileocecal valve. The colonoscopy was performed without difficulty. The patient tolerated the procedure well. The quality of the bowel preparation was good. The ileocecal valve, appendiceal orifice, and rectum were photographed. Moderate Sedation: The administration of moderate sedation was initiated at 10:18 AM. Moderate (conscious) sedation was personally administered by the endoscopist. The following parameters were monitored: oxygen saturation, heart rate, blood pressure, respiratory rate, EKG, adequacy of pulmonary ventilation, and response to care. Total physician intraservice time was 22 minutes. Findings: The perianal and digital rectal examinations were normal. Multiple medium-mouthed and small-mouthed diverticula were found in the sigmoid colon and descending colon. Non-bleeding internal hemorrhoids were found during retroflexion. The hemorrhoids were mild and small. The exam was otherwise without abnormality. Impression: - Diverticulosis in the sigmoid colon and in the descending colon. - Non-bleeding internal hemorrhoids. - The examination was otherwise normal. - No specimens collected. Recommendation: - Patient has a contact number available for emergencies. The signs and symptoms of potential delayed complications were discussed with the patient. Return to normal activities tomorrow. Written discharge instructions were provided to the patient. - Resume previous diet. - Continue present medications. - Repeat colonoscopy in 10 years for screening purposes. - Return to primary care physician PRN. - Resume Eliquis (apixaban) today at prior dose. Procedure Code(s): --- Professional --- 20155, Colonoscopy, flexible; diagnostic, including collection of specimen(s) by brushing or washing, when performed (separate procedure) G0500, Moderate sedation services provided by the same physician or other qualified health caregiver services home performing a gastrointestinal endoscopic service that sedation supports, requiring the presence of an independent trained observer to assist in the monitoring of the patient's level of consciousness and physiological status; initial 15 minutes of intra-service time; patient age 5 years or older (additional time may be reported with 31097, as appropriate) Diagnosis Code(s): --- Professional --- Z12.11, Encounter for screening for malignant neoplasm of colon Z86.010, Personal history of colonic polyps K64.8, Other hemorrhoids K57.30, Diverticulosis of large intestine without perforation or abscess without bleeding CPT copyright 2020 [employer]. All rights reserved. The codes documented in this report are preliminary and upon shipper/receiver review may be revised to meet current compliance requirements. Attending Participation: I personally performed the entire procedure. Scope In: 10:30:40 AM Scope Out: 10:46:16 AM MD Glenn Bryson MD 05/05/2023 10:57:17 AM This report has been signed electronically by Glenn Baldwin MD Number of Addenda: 0 Note Initiated On: 05/05/2023 10:34 AM Estimated Blood Loss: Estimated blood loss: none. Normal [facility] HISTORY PHYSICALon HISTORY PHYSICAL HNO ID: [id number] Author: GLENN BALDWIN MD Service: General Surgery Author Type: Physician Type: H&P Filed: 05/05/2023 10:09 Note Text: HISTORY AND PHYSICAL Josh D Will 1965 REFERRING PHYSICIAN: Parish Crouch MD CHIEF COMPLAINT: Consult (Colonoscopy consult. ) HPI: The patient is a 58 year old male referred for endoscopy. Josh notes no colon complaints. Patient denies any change in bowel habits, weight changes, blood in stools, black tarry stools or abdominal pain. Denies family history of colon issues. The patient NOTES acid reflux for which he has required proton pump inhibitor long-term to control symptoms. Has not had EGD in the past. Josh has undergone prior endoscopy. Last colonoscopy 09/15/[address] Cook with removal of polyps, repeat colonoscopy recommended in 5 years. Patient's medical history is significant for GERD, atrial fibrillation for which he is maintained on oral anticoagulation, kidney stones, and skin cancer. Patient denies chest pain, shortness of breath or recent hospitalizations. Denies problems with sedation in the past. 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 PAST SURGICAL HISTORY PAST SURGICAL HISTORY Procedure Laterality Date COLONOSCOPY FLX DX W/COLLJ SPEC WHEN PFRMD 09/15/2017 Colonoscopy PAST SURGICAL HISTORY OF 1992 ORIF left wrist SKIN SURGERY HX skin cancer removal on face CURRENT MEDICATIONS Current Outpatient Medications Medication Sig apixaban (ELIQUIS) 5 mg tab(s) Take 1 tablet by mouth two times a day. omeprazole (PRILOSEC) 20 mg capsule Take 1 capsule by mouth once daily. dilTIAZem XR (DILACOR XR) 120 mg 24 hr capsule Take 1 capsule by mouth once daily. allopurinol (ZYLOPRIM) 300 mg tablet Take 1 tablet by mouth once daily. lovastatin (MEVACOR) 10 mg tablet Take 1 tablet by mouth daily at bedtime. For cholesterol. cetirizine (ZYRTEC) 10 mg tablet Take 10 mg by mouth once daily. Cholecalciferol, Vitamin D3, 1,000 unit cap Take 1 capsule by mouth once daily. aspirin, enteric coated (ASPIRIN, ENTERIC COATED) 81 mg EC tablet Take 1 tablet by mouth once daily. Magnesium 250 mg tab Take 1 tablet by mouth. No current facility-administered medications for this visit. ALLERGIES: Seasonal Allergies PERSONAL HISTORY: SOCIAL HISTORY Social History Tobacco Use Smoking status: Former Smokeless tobacco: Current Types: Chew Vaping Use Vaping Use: Never used Substance Use Topics Alcohol use: Not Currently Alcohol/week: 10.0 standard drinks of alcohol Types: 10 Cans of Beer (12oz) per week Drug use: No FAMILY HISTORY: FAMILY HISTORY FAMILY HISTORY Problem Relation Age of Onset Diabetes Mother other (Other) Mother TIA Hypertension Father Stroke Father 78 Cancer Paternal Grandmother stomach Stroke Maternal Grandfather No Known Problems Sister Cancer Brother lymphoma Heart Nephew AFIB REVIEW OF SYMPTOMS: The review of systems data was entered by the nurse and reviewed by nh Nursing Notes: Autumn Medellin RN 04/21/2023 8:09 AM Signed REVIEW OF SYSTEMS: General: The patient denies fatigue, denies weight loss, denies weight gain, denies feeling hot, and denies feelings of cold. Eyes: The patient denies glaucoma, denies eye injury/surgery, does not wear glasses or contacts. Ear/Nose/Throat: The patient denies allergies, NOTES hayfever, denies ear infections, and denies bloody noses. Cardiovascular: The patient denies chest pain, denies heart disease, NOTES high blood pressure,denies cardiac stent, denies prior heart attack, NOTES irregular heart beat, denies high cholesterol, denies poor circulation, denies heart failure, other cardiac issues, denies claudication, denies cold feet, denies peripheral arterial stent. Respiratory: The patient denies tuberculosis, denies pneumonia, denies frequent cough, denies pulmonary embolism, denies shortness of breath, and denies coughing up blood. Gastrointestinal: The patient denies difficulty swallowing, NOTES acid reflux, denies ulcers, denies vomiting, denies jaundice/hepatitis, denies gallbladder problems, denies black or tarry stools, denies hemorrhoids, denies bleeding from rectum, denies diverticulitis, denies constipation, denies diarrhea, denies loss of stool control, and denies hernias. Kidney/Bladder: The patient NOTES kidney stones, denies urine infections, and NOTES bloody urine. Skin: The patient NOTES a history of skin cancer, denies bleeding/changing moles, and denies a history of skin rash. Neurologic: The patient denies a history of epilepsy/convulsions, denies headaches, denies head/spinal injuries, and denies stroke/TIA. Psychiatric: The francois (more content not included)... Normal [facility] NURSING PROGon 05-05-2023 NURSING PROG HNO ID: [id number] Author: REBECA ROSARIO RN Service: ? Author Type: Registered Nurse Type: Nursing Progress Note Filed: 05/05/2023 11:07 Note Text: Patient received in phase II via cart in left lateral position, eyes open, alert to self, event and time. Patient awake and conversational about procedures. Skin warm and dry, respirations regular and unlabored. Abdomen soft and non distended. Denies pain or nausea. Encouraged to rest for awhile on left side. Normal [facility] SURGICAL PATHOLOGYon 024 CASE REPORT Normal [facility] Comment on above: Order Comment: Nieves cruz Type: TISSUE SPECIMENOrdering Facility: [facility] Address: [address] [place] [address] Result Comment: Surg ical Pathology Report Case: [id number] Authorizing Provider: Glenn Baldwin MD Collected: 05/05/2023 10:23 AM Ordering Location: Ambulatory Surgery Received: 05/05/2023 02:31 PM Pathologist: Francoise Nolan MD, PhD Specimens: A) - DUODENUM BIOPSY B) - ANTRUM (STOMACH) BIOPSY, ANTRAL bx for H/H C) - ESOPHAGUS LOWER BIOPSY, DISTAL esophageal bx D) - ESOPHAGUS MID BIOPSY, MID esophageal bx Performed By: #### S ####[facility] LABIA [id number] [place] [address] [place] FINAL DIAGNOSIS Normal [facility] Comment on above: Order Comment: Lorenzoi nancy Type: TISSUE SPECIMENOrdering Facility: [facility] Address: [address] [place] [address] Result Comment: A. D uodenum, biopsy: - Duodenal mucosa with no diagnostic abnormality. B. Stomach, antrum, biopsy: - Gastric antral and oxyntic mucosa with mild chronic inactive gastritis. - No evidence of H. pylori microorganisms on H&E sections. C. Esophagus, lower, biopsy: - Mildly reactive squamous mucosa. D. Esophagus, mid, biopsy: - Squamous mucosa with no significant diagnostic abnormality. Performed By: #### S ####[facility] LABCLIA [id number] [place] [address] [place] FINAL PERFORMING LAB Normal [facility] Comment on above: Order Comment: Speci men Type: TISSUE SPECIMENOrdering Facility: [facility] Address: [address] [place] [address] Result Comment: Diag nostic interpretation performed at [facility], [address] [place] [address] CLIA# [id number] Deputy Chief Counsel: Gerardo Lockwood M.D. Performed By: #### S ####[facility] LABCLIA [id number] [address] [place] GROSS DESCRIPTION Normal [facility] Comment on above: Order Comment: Speci men Type: TISSUE SPECIMENOrdering Facility: [facility] Address: [address] [place] [address] Result Comment: A. D UODENUM BIOPSY Received in formalin is one piece of brown, soft tissue measuring 0.4 x 0.4 x 0.2 cm. Totally submitted in one cassette. B. ANTRUM (STOMACH) BIOPSY Received in formalin is one piece of brown, soft tissue measuring 0.7 x 0.2 x 0.2 cm. Totally submitted in one cassette. C. ESOPHAGUS LOWER BIOPSY Received in formalin are two pieces of brown, soft tissue aggregating to 0.8 x 0.3 x 0.2 cm. Totally submitted in one cassette. D. ESOPHAGUS MID BIOPSY Received in formalin are two pieces of rbown, soft tissue aggregating to 0.5 x 0.2 x 0.1 cm. Totally submitted in one cassette. SS May 05, 2023 10:42 PM Gross examination performed at [facility], [address] [place] [address] Performed By: #### S ####[facility] LABCLIA [id number] [place] [address] [place] Upper GI endoscopyon 024 Upper GI endoscopy [facility] Gastrointestinal Endoscopy Patient Name: Josh Sheppard Procedure Date: 05/05/2023 10:11 AM Date of : 1965 Admit Type: Outpatient Age: 58 Gender: Male Note Status: Finalized Procedure: Upper GI endoscopy Indications: Gastro-esophageal reflux disease Providers: Glenn Baldwin MD Patient Profile: This is a 58 year old male. Refer to note in patient chart for documentation of history and physical. Referring Physician: Suze Vega (pa) (Referring ), Parish Crouch MD (Referring MD) Medicines: Fentanyl 50 micrograms IV, Midazolam 5 mg IV, Diphenhydramine 50 mg IV Complications: No immediate complications. Estimated blood loss: Minimal. Requesting Provider: Procedure: Pre-Anesthesia Assessment: - Prior to the procedure, a History and Physical was performed, and patient medications and allergies were reviewed. The patient's tolerance of previous anesthesia was also reviewed. The risks and benefits of the procedure and the sedation options and risks were discussed with the patient. All questions were answered, and informed consent was obtained. Prior Anticoagulants: The patient has taken Eliquis (apixaban), last dose was day of procedure. ASA Grade Assessment: III - A patient with severe systemic disease. After reviewing the risks and benefits, the patient was deemed in satisfactory condition to undergo the procedure. After obtaining informed consent, the endoscope was passed under direct vision. Throughout the procedure, the patient's blood pressure, pulse, and oxygen saturations were monitored continuously. The Endoscope was introduced through the mouth, and advanced to the second part of duodenum. The upper GI endoscopy was accomplished without difficulty. The patient tolerated the procedure well. Moderate Sedation: The administration of moderate sedation was initiated at 10:18 AM. Moderate (conscious) sedation was personally administered by the endoscopist. The following parameters were monitored: oxygen saturation, heart rate, blood pressure, respiratory rate, EKG, adequacy of pulmonary ventilation, and response to care. Total physician intraservice time was 22 minutes. Findings: The Z-line was regular and was found 40 cm from the incisors. Biopsies were taken with a cold forceps for histology. Localized minimal inflammation characterized by erythema was found in the prepyloric region of the stomach. Biopsies were taken with a cold forceps for Helicobacter pylori testing. The examined duodenum was normal. Biopsies for histology were taken with a cold forceps for evaluation of celiac disease. Impression: - Z-line regular, 40 cm from the incisors. Biopsied. - Gastritis. Biopsied. - Normal examined duodenum. Biopsied. Recommendation: - Patient has a contact number available for emergencies. The signs and symptoms of potential delayed complications were discussed with the patient. Return to normal activities tomorrow. Written discharge instructions were provided to the patient. - Resume previous diet. - Continue present medications. - Await pathology results. - Repeat upper endoscopy PRN for surveillance. - Return to primary care physician at appointment to be scheduled. Procedure Code(s): --- Professional --- 96385, Esophagogastroduodenos copy, flexible, transoral; with biopsy, single or multiple G0500, Moderate sedation services provided by the same physician or other qualified health caregiver services home performing a gastrointestinal endoscopic service that sedation supports, requiring the presence of an independent trained observer to assist in the monitoring of the patient's level of consciousness and physiological status; initial 15 minutes of intra-service time; patient age 5 years or older (additional time may be reported with 92853, as appropriate) Diagnosis Code(s): --- Professional --- K29.70, Gastritis, unspecified, without bleeding K21.9, Gastro-esophageal reflux disease without esophagitis CPT copyright 2020 [employer]. All rights reserved. The codes documented in this report are preliminary and upon shipper/receiver review may be revised to meet current compliance requirements. Attending Participation: I personally performed the entire procedure. Scope In: Scope Out: MD Glenn Bryson MD 05/05/2023 11:00:48 AM This report has been signed electronically by Glenn Baldwin MD Number of Addenda: 0 Note Initiated On: 05/05/2023 10:11 AM Estimated Blood Loss: Estimated blood loss was minimal. Normal [facility] CNOVon 04-21-2023 CNOV Office Visit ([facility] ) JOSH SHEPPARD ([id number]) 1965 M Date Time Provider Department 04/21/23 8:00 AM SUZE VEGA During your visit today, we recorded the following information about you: Temperature Pulse Blood pressure Weight 98 degrees 86/minute 128/76 119.9 kg Height 1.829 m Autumn Medellin RN 04/21/2023 8:09 AM Signed REVIEW OF SYSTEMS: General: The patient denies fatigue, denies weight loss, denies weight gain, denies feeling hot, and denies feelings of cold. Eyes: The patient denies glaucoma, denies eye injury/surgery, does not wear glasses or contacts. Ear/Nose/Throat: The patient denies allergies, NOTES hayfever, denies ear infections, and denies bloody noses. Cardiovascular: The patient denies chest pain, denies heart disease, NOTES high blood pressure,denies cardiac stent, denies prior heart attack, NOTES irregular heart beat, denies high cholesterol, denies poor circulation, denies heart failure, other cardiac issues, denies claudication, denies cold feet, denies peripheral arterial stent. Respiratory: The patient denies tuberculosis, denies pneumonia, denies frequent cough, denies pulmonary embolism, denies shortness of breath, and denies coughing up blood. Gastrointestinal: The patient denies difficulty swallowing, NOTES acid reflux, denies ulcers, denies vomiting, denies jaundice/hepatitis, denies gallbladder problems, denies black or tarry stools, denies hemorrhoids, denies bleeding from rectum, denies diverticulitis, denies constipation, denies diarrhea, denies loss of stool control, and denies hernias. Kidney/Bladder: The patient NOTES kidney stones, denies urine infections, and NOTES bloody urine. Skin: The patient NOTES a history of skin cancer, denies bleeding/changing moles, and denies a history of skin rash. Neurologic: The patient denies a history of epilepsy/convulsions, denies headaches, denies head/spinal injuries, and denies stroke/TIA. Psychiatric: The patient denies psychiatric medications, denies depression, and denies voices, denies substance abuse. Endocrine: The patient denies thyroid disorders, denies diabetes, and denies hormonal problems. Hematologic: The patient denies a history of bruising, denies bleeding, and denies anemia, denies blood clots. Infections: The patient denies a history of measles and mumps, denies rheumatic fever, and denies sexually transmitted diseases. Musculoskeletal: The patient denies back pain/injury, denies back problems, denies sciatica, denies knee/foot trouble, NOTES arthritis, or NOTES gout. When was patient's last Mammogram screening? N/A Last Colonoscopy: 09/15/2017 ERNESTO Dupree Amanda, PA-C 04/21/2023 11:35 AM Signed HISTORY AND PHYSICAL Josh D Will 1965 REFERRING PHYSICIAN: Parish Crouch MD CHIEF COMPLAINT: Consult (Colonoscopy consult. ) HPI: The patient is a 58 year old male referred for endoscopy. Josh notes no colon complaints. Patient denies any change in bowel habits, weight changes, blood in stools, black tarry stools or abdominal pain. Denies family history of colon issues. The patient NOTES acid reflux for which he has required proton pump inhibitor long-term to control symptoms. Has not had EGD in the past. Josh has undergone prior endoscopy. Last colonoscopy 09/15/[address] Cook with removal of polyps, repeat colonoscopy recommended in 5 years. Patient's medical history is significant for GERD, atrial fibrillation for which he is maintained on oral anticoagulation, kidney stones, and skin cancer. Patient denies chest pain, shortness of breath or recent hospitalizations. Denies problems with sedation in the past. 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 PAST SURGICAL HISTORY Procedure Laterality Date COLONOSCOPY FLX DX W/COLLJ SPEC WHEN PFRMD 09/15/2017 Colonoscopy PAST SURGICAL HISTORY OF 1992 ORIF left wrist SKIN SURGERY HX skin cancer removal on face Current Outpatient Medications Medication Sig apixaban (ELIQUIS) 5 mg tab(s) Take 1 tablet by mouth two times a day. omeprazole (PRILOSEC) 20 mg capsule Take 1 capsule by mouth once daily. dilTIAZem XR (DILACOR XR) 120 mg 24 hr capsule Take 1 capsule by mouth once daily. allopurinol (ZYLOPRIM) 300 mg tablet Take 1 tablet by mouth once daily. lovastatin (MEVACOR) 10 mg tablet Take 1 tablet by mouth daily at bedtime. For cholesterol. cetirizine (ZYRTEC) 10 mg tablet Take 10 mg by mouth once daily. Cholecalciferol, Vitamin D3, 1,000 unit cap Take 1 capsule by mouth once daily. aspirin, enteric coated (ASPIRIN, ENTERIC COATED) 81 mg EC tablet Take 1 tabl (more content not included)... Normal [facility] CNOVon 03-29-2023 CNOV [facility] JOSH SHEPPARD ([id number]) 1965 M Date Time Provider Department 03/29/23 3:40 PM PARISH CROUCH [facility] During your visit today, we recorded the following information about you: Pulse Respiration Blood pressure Weight 76/minute 16/minute 132/86 116.1 kg Parish Crouch MD 03/29/2023 4:22 PM Signed Patient presents with: Recheck HPI: Patient presents today for office visit for follow up. Discussed prediabetes and diet. Offered metformin. Declines. Will follow. No chest pain or shortness of breath. No dizziness. No bleeding or bruising. Does have some dry nasal passages and some mild bleeding from nose. Discussed saline drops. Still seeing cardiology. No gout issues. Cholesterol is doing well. Has seen Dr Mark. His back is doing better. They did not discuss repeating imaging like an mri given his syrinx. He feels well and declines reimaging for now. Red flags for re-assessment reviewed with patient in detail. Component Latest Ref Rng AND Units 03/24/2023 WBC 3.70 - 11.00 k/uL 6.11 RBC 4.20 - 6.00 m/uL 5.21 Hemoglobin 13.0 - 17.0 g/dL 15.6 Hematocrit 39.0 - 51.0 % 47.7 MCV 80.0 - 100.0 fL 91.6 MCH 26.0 - 34.0 pg 29.9 MCHC 30.5 - 36.0 g/dL 32.7 RDW-CV 11.5 - 15.0 % 13.0 Platelet Count 150 - 400 k/uL 214 MPV 9.0 - 12.7 fL 12.3 Neut% % 52.8 Abs Neut (ANC) 1.45 - 7.50 k/uL 3.23 Lymph% % 29.5 Abs Lymph 1.00 - 4.00 k/uL 1.80 [place]% % 15.1 Abs [place] <0.87 k/uL 0.92 (H) Eosin% % 1.6 Abs Eosin <0.46 k/uL 0.10 Baso% % 0.8 Abs Baso <0.11 k/uL 0.05 Immature Gran % % 0.2 IMMATURE GRANS (ABS) <0.10 k/uL <0.03 NRBC /100 WBC 0.0 Absolute nRBC <0.01 k/uL <0.01 DTYPE Auto Protein, Total 6.3 - 8.0 g/dL 6.8 Albumin 3.9 - 4.9 g/dL 4.1 Calcium 8.5 - 10.2 mg/dL 9.6 Bilirubin, Total 0.2 - 1.3 mg/dL 0.6 Alkaline Phosphatase 38 - 113 U/L 72 AST 14 - 40 U/L 33 ALT 10 - 54 U/L 41 Glucose 74 - 99 mg/dL 119 (H) BUN 9 - 24 mg/dL 22 Creatinine 0.73 - 1.22 mg/dL 1.00 Sodium 136 - 144 mmol/L 139 Potassium 3.7 - 5.1 mmol/L 4.3 Chloride 97 - 105 mmol/L 105 CO2 22 - 30 mmol/L 25 Anion Gap 9 - 18 mmol/L 9 eGFR >=60 mL/min/1.73mA? 88 Cholesterol, Total <200 mg/dL 169 Triglyceride <150 mg/dL 71 HDL Cholesterol >39 mg/dL 60 Non HDL Cholesterol <130 mg/dL 109 Fasting Time hrs 13 VLDL Cholesterol <30 mg/dL 14 TC:HDL Ratio <5.10 2.82 LDL Cholesterol <100 mg/dL 95 LDL:HDL Ratio <2.54 1.58 Hemoglobin A1C 4.3 - 5.6 % 6.1 (H) Estimated Average Glucose mg/dL 128 Uric Acid 4.0 - 8.1 mg/dL 4.7 MEDICATIONS: Current Outpatient Medications Medication Sig dilTIAZem XR (DILACOR XR) 120 mg 24 hr capsule Take 1 capsule by mouth once daily. allopurinol (ZYLOPRIM) 300 mg tablet Take 1 tablet by mouth once daily. lovastatin (MEVACOR) 10 mg tablet Take 1 tablet by mouth daily at bedtime. For cholesterol. apixaban (ELIQUIS) 5 mg tab(s) Take 1 tablet by mouth twice daily. omeprazole (PRILOSEC) 20 mg capsule Take 1 capsule by mouth once daily. cetirizine (ZYRTEC) 10 mg tablet Take 10 mg by mouth once daily. Cholecalciferol, Vitamin D3, 1,000 unit cap Take 1 capsule by mouth once daily. aspirin, enteric coated (ASPIRIN, ENTERIC COATED) 81 mg EC tablet Take 1 tablet by mouth once daily. Magnesium 250 mg tab Take 1 tablet by mouth. No current facility-administered medications for this visit. ALLERGIES: ALLERGIES Allergen Reactions Seasonal Allergies Unknown Sinus congestion PAST MEDICAL HISTORY Diagnosis Date Arrhythmia Atrial fibrillation (HCC) HTN (hypertension) Syringomyelia and syringobulbia (HCC) decreased sensation in upper left arm and hand. PAST SURGICAL HISTORY Procedure Laterality Date COLONOSCOPY FLX DX W/COLLJ SPEC WHEN PFRMD 09/15/2017 Colonoscopy PAST SURGICAL HISTORY OF 1992 ORIF left wrist SKIN SURGERY HX skin cancer removal on face FAMILY HISTORY Problem Relation Age of Onset Diabetes Mother other (Other) Mother TIA Hypertension Father Stroke Father 78 Cancer Paternal Grandmother stomach Stroke Maternal Grandfather No Known Problems Sister Cancer Brother lymphoma Heart Nephew AFIB Social History Tobacco Use Smoking status: Former Smokeless tobacco: Current Types: Chew Vaping Use Vaping Use: Never used Substance Use Topics Alcohol use: Not Currently Alcohol/week: 10.0 standard drinks of alcohol Types: 10 Cans of Beer (12oz) per week Drug use: No Reviewed current medications, allergies, past medical history, surgical history, family history and social history today. REVIEW OF SYSTEMS Notes his lower lip is sensitive . No open sores. Wonders if he might have burned it for a month and a half. Seems to be improving. Exam is benign. Red flags for re-assessment reviewed with patient in detail. All other reviewed and negative other than HPI. HEALTH MAINTENANCE: Reviewed (more content not included)... Normal [facility] CBC W Auto Differential pane l (Bld)on 12-14-2023 Basophils (Bld) [#/Vol] 0.05 10*3/uL Normal <0.11 [facility] Comment on above: Order Comment: Speci men Type: BLOOD SPECIMENOrdering Facility: [facility] Address: [address] [place] [address] Performed By: #### 5 7021-8 ####[facility] LABCLIA [id number] [place] [address] [place] Basophils/100 WBC (Bld) 0.8 % Normal [facility] Comment on above: Order Comment: Speci men Type: BLOOD SPECIMENOrdering Facility: [facility] Address: [address] [place] [address] Performed By: #### 5 7021-8 ####[facility] LABCLIA [id number] [place] [address] [place] Differential cell count method Nom (Bld) Auto Normal [facility] Comment on above: Order Comment: Speci men Type: BLOOD SPECIMENOrdering Facility: [facility] Address: [address] [place] [address] Performed By: #### 5 7021-8 ####[facility] LABCLIA [id number] [place] [address] [place] Eosinophils (Bld) [#/Vol] 0.10 10*3/uL Normal <0.46 [facility] Comment on above: Order Comment: Speci men Type: BLOOD SPECIMENOrdering Facility: [facility] Address: [address] [place] [address] Performed By: #### 5 7021-8 ####[facility] LABCLIA [id number] [place] [address] [place] Eosinophils/100 WBC (Bld) 1.6 % Normal [facility] Comment on above: Order Comment: Speci men Type: BLOOD SPECIMENOrdering Facility: [facility] Address: [address] [place] [address] Performed By: #### 5 7021-8 ####[facility] LABCLIA [id number] [place] [address] [place] Erythrocyte distribution width (RBC) [Ratio] 13.0 % Normal 11.5-15.0 [facility] Comment on above: Order Comment: Speci men Type: BLOOD SPECIMENOrdering Facility: [facility] Address: [address] [place] [address] Performed By: #### 5 7021-8 ####[facility] LABCLIA [id number] [place] [address] [place] Hematocrit (Bld) [Volume fraction] 47.7 % Normal 39.0-51.0 [facility] Comment on above: Order Comment: Speci men Type: BLOOD SPECIMENOrdering Facility: [facility] Address: [address] [place] [address] Performed By: #### 5 7021-8 ####[facility] LABIA [id number] [place] [address] [place] Hemoglobin (Bld) [Mass/Vol] 15.6 g/dL Normal 13.0-17.0 [facility] Comment on above: Order Comment: Speci men Type: BLOOD SPECIMENOrdering Facility: [facility] Address: [address] [place] [address] Performed By: #### 5 7021-8 ####[facility] LABCLIA [id number] [place] [address] [place] Immature granulocytes (Bld) [#/Vol] 10*3/uL Normal <0.10 [facility] Comment on above: Order Comment: Speci men Type: BLOOD SPECIMENOrdering Facility: [facility] Address: [address] [place] [address] Performed By: #### 5 7021-8 ####[facility] LABIA [id number] [place] [address] [place] Immature granulocytes/100 WBC (Bld) 0.2 % Normal [facility] Comment on above: Order Comment: Speci men Type: BLOOD SPECIMENOrdering Facility: [facility] Address: [address] [place] [address] Performed By: #### 5 7021-8 ####[facility] LABCLIA [id number] [place] [address] [place] Lymphocytes (Bld) [#/Vol] 1.80 10*3/uL Normal 1.00-4.00 [facility] Comment on above: Order Comment: Speci men Type: BLOOD SPECIMENOrdering Facility: [facility] Address: [address] [place] [address] Performed By: #### 5 7021-8 ####[facility] LABCLIA [id number] [place] [address] [place] Lymphocytes/100 WBC (Bld) 29.5 % Normal [facility] Comment on above: Order Comment: Speci men Type: BLOOD SPECIMENOrdering Facility: [facility] Address: [address] [place] [address] Performed By: #### 5 7021-8 ####[facility] LABCLIA [id number] [place] [address] [place] MCH (RBC) [Entitic mass] 29.9 pg Normal 26.0-34.0 [facility] Comment on above: Order Comment: Speci men Type: BLOOD SPECIMENOrdering Facility: [facility] Address: [address] [place] [address] Performed By: #### 5 7021-8 ####[facility] LABCLIA [id number] [place] [address] [place] MCHC (RBC) [Mass/Vol] 32.7 g/dL Normal 30.5-36.0 [facility] Comment on above: Order Comment: Speci men Type: BLOOD SPECIMENOrdering Facility: [facility] Address: [address] [place] [address] Performed By: #### 5 7021-8 ####[facility] LABCLIA [id number] [place] [address] [place] MCV (RBC) [Entitic vol] 91.6 fL Normal 80.0-100.0 [facility] Comment on above: Order Comment: Speci men Type: BLOOD SPECIMENOrdering Facility: [facility] Address: [address] [place] [address] Performed By: #### 5 7021-8 ####[facility] LABCLIA [id number] [place] [address] [place] Monocytes (Bld) [#/Vol] 0.92 10*3/uL High <0.87 [facility] Comment on above: Order Comment: Speci men Type: BLOOD SPECIMENOrdering Facility: [facility] Address: [address] [place] [address] Performed By: #### 5 7021-8 ####[facility] LABCLIA [id number] [place] [address] [place] Monocytes/100 WBC (Bld) 15.1 % Normal [facility] Comment on above: Order Comment: Speci men Type: BLOOD SPECIMENOrdering Facility: [facility] Address: [address] [place] [address] Performed By: #### 5 7021-8 ####[facility] LABCLIA [id number] [place] [address] [place] Neutrophils (Bld) [#/Vol] 3.23 10*3/uL Normal 1.45-7.50 [facility] Comment on above: Order Comment: Speci men Type: BLOOD SPECIMENOrdering Facility: [facility] Address: [address] [place] [address] Performed By: #### 5 7021-8 ####[facility] LABCLIA [id number] [place] [address] [place] Neutrophils/100 WBC (Bld) 52.8 % Normal [facility] Comment on above: Order Comment: Speci men Type: BLOOD SPECIMENOrdering Facility: [facility] Address: [address] [place] [address] Performed By: #### 5 7021-8 ####[facility] LABCLIA [id number] [place] [address] [place] Nucleated RBC (Bld) [#/Vol] 10*3/uL Normal <0.01 [facility] Comment on above: Order Comment: Speci men Type: BLOOD SPECIMENOrdering Facility: [facility] Address: [address] [place] [address] Performed By: #### 5 7021-8 ####[facility] LABCLIA [id number] [place] [address] [place] Nucleated RBC/100 WBC (Bld) [Ratio] 0.0 /100 WBC Normal [facility] Comment on above: Order Comment: Speci men Type: BLOOD SPECIMENOrdering Facility: [facility] Address: [address] [place] [address] Performed By: #### 5 7021-8 ####[facility] LABCLIA [id number] [place] [address] [place] Platelet mean volume (Bld) [Entitic vol] 12.3 fL Normal 9.0-12.7 [facility] Comment on above: Order Comment: Speci men Type: BLOOD SPECIMENOrdering Facility: [facility] Address: [address] [place] [address] Performed By: #### 5 7021-8 ####[facility] LABCLIA [id number] [place] [address] [place] Platelets (Bld) [#/Vol] 214 10*3/uL Normal 150-400 [facility] Comment on above: Order Comment: Speci men Type: BLOOD SPECIMENOrdering Facility: [facility] Address: [address] [place] [address] Performed By: #### 5 7021-8 ####[facility] LABCLIA [id number] [address] [address] [place] RBC (Bld) [#/Vol] 5.21 10*6/uL Normal 4.20-6.00 [facility] Comment on above: Order Comment: Speci men Type: BLOOD SPECIMENOrdering Facility: [facility] Address: [address] [place] [address] Performed By: #### 5 7021-8 ####[facility] LABCLIA [id number] [place] [address] [place] WBC (Bld) [#/Vol] 6.11 10*3/uL Normal 3.70-11.00 [facility] Comment on above: Order Comment: Speci men Type: BLOOD SPECIMENOrdering Facility: [facility] Address: [address] [place] [address] Performed By: #### 5 7021-8 ####[facility] LABIA [id number] [place] [id number] [place] Comprehensive metabolic 2000 panelon 03-24-2023 Albumin [Mass/Vol] 4.1 g/dL Normal 3.9-4.9 [facility] Comment on above: Order Comment: Speci men Type: BLOOD SPECIMENOrdering Facility: [facility] Address: [address] [place] [address] Performed By: #### 2 4331-1, 48915-9, 3083- ####[facility] LABIA [id number] [place] [id number] [place] ALP [Catalytic activity/Vol] 72 U/L Normal 38-113 [facility] Comment on above: Order Comment: Speci men Type: BLOOD SPECIMENOrdering Facility: [facility] Address: [address] [place] [address] Performed By: #### 2 4331-1, 72733-7, 3084-1 ####[facility] LABCLIA [id number] [address] [address] [place] ALT [Catalytic activity/Vol] 41 U/L Normal 10-54 [facility] Comment on above: Order Comment: Speci men Type: BLOOD SPECIMENOrdering Facility: [facility] Address: [address] [place] [address] Performed By: #### 2 4331-1, 54016-9, 3083- ####[facility] LABCLIA [id number] [place] [address] [place] Anion gap [Moles/Vol] 9 mmol/L Normal 9-18 [facility] Comment on above: Order Comment: Speci men Type: BLOOD SPECIMENOrdering Facility: [facility] Address: [address] [place] [address] Performed By: #### 2 4331-1, 67341-3, 3083-04 ####[facility] LABCLIA [id number] [place] [address] [place] AST [Catalytic activity/Vol] 33 U/L Normal 14-40 [facility] Comment on above: Order Comment: Speci men Type: BLOOD SPECIMENOrdering Facility: [facility] Address: [address] [place] [address] Performed By: #### 2 4331-1, 34642-0, 3083-04 ####[facility] LABCLIA [id number] [place] [address] [place] Bilirubin [Mass/Vol] 0.6 mg/dL Normal 0.2-1.3 [facility] Comment on above: Order Comment: Speci men Type: BLOOD SPECIMENOrdering Facility: [facility] Address: [address] [place] [address] Performed By: #### 2 4331-1, 74587-6, 3083- ####[facility] LABCLIA [id number] [place] [address] [place] Calcium [Mass/Vol] 9.6 mg/dL Normal 8.5-10.2 [facility] Comment on above: Order Comment: Speci men Type: BLOOD SPECIMENOrdering Facility: [facility] Address: [address] [place] [address] Performed By: #### 2 4331-1, 79379-8, 3083- ####[facility] LABCLIA [id number] [place] [address] [place] Chloride [Moles/Vol] 105 mmol/L Normal 97-105 [facility] Comment on above: Order Comment: Speci men Type: BLOOD SPECIMENOrdering Facility: [facility] Address: [address] [place] [address] Performed By: #### 2 4331-1, 31348-2, 3083-04 ####[facility] LABCLIA [id number] [place] [address] [place] CO2 [Moles/Vol] 25 mmol/L Normal 22-30 [facility] Comment on above: Order Comment: Speci men Type: BLOOD SPECIMENOrdering Facility: [facility] Address: [address] [place] [address] Performed By: #### 2 4331-1, 85830-9, 3083-04 ####[facility] LABCLIA [id number] [place] [address] [place] Creatinine [Mass/Vol] 1.00 mg/dL Normal 0.73-1.22 [facility] Comment on above: Order Comment: Speci men Type: BLOOD SPECIMENOrdering Facility: [facility] Address: [address] [place] [address] Performed By: #### 2 4331-1, 12960-1, 3083- ####[facility] LABCLIA [id number] [place] [address] [place] Creatinine and Glomerular filtration rate.predicted panel (S/P/Bld) 88 mL/min/1.73m??? Normal >=60 [facility] Comment on above: Order Comment: Nieves cruz Type: BLOOD SPECIMENOrdering Facility: [facility] Address: [address] [place] [address] Result Comment: Concha mated Glomerular Filtration Rate (eGFR) is calculated using the 2020 CKD-EPI creatinine equation. This equation utilizes serum creatinine, sex, and age as parameters. The creatinine assay has traceable calibration to isotope dilution-mass spectrometry. Refer to KDIGO guidelines for clinical interpretation. In patients with unstable renal function, e.g. those with acute kidney injury, the eGFR may not accurately reflect actual GFR. Performed By: #### 2 4331-1, 87272-7, 3083- ####[facility] LABIA [id number] [place] [address] [place] Glucose [Mass/Vol] 119 mg/dL High 74-99 [facility] Comment on above: Order Comment: Nieves cruz Type: BLOOD SPECIMENOrdering Facility: [facility] Address: [address] [place] [address] Result Comment: The [place] Diabetes Association (ADA) provides guidance for cutoff values for fasting glucose and random glucose. The ADA defines fasting as no caloric intake for at least 8 hours. Fasting plasma glucose results between 100 to 125 mg/dL indicate increased risk for diabetes (prediabetes). Fasting plasma glucose results greater than or equal to 126 mg/dL meet the criteria for diagnosis of diabetes. In the absence of unequivocal hyperglycemia, results should be confirmed by repeat testing. In a patient with classic symptoms of hyperglycemia or hyperglycemic crisis, random plasma glucose results greater than or equal to 200 mg/dL meet the criteria for diagnosis of diabetes. Reference: Standards of Medical Care in Diabetes 2016, [place] Diabetes Association. Diabetes Care. 2016.39(Suppl 1). Performed By: #### 2 4331-1, 13176-4, 3083-04 ####[facility] LABIA [id number] [place] [id number] [place] Potassium [Moles/Vol] 4.3 mmol/L Normal 3.7-5.1 [facility] Comment on above: Order Comment: Speci men Type: BLOOD SPECIMENOrdering Facility: [facility] Address: [address] [place] [address] Performed By: #### 2 4331-1, , 3083-04 ####[facility] LABCLIA [id number] [address] [address] [place] Protein [Mass/Vol] 6.8 g/dL Normal 6.3-8.0 [facility] Comment on above: Order Comment: Speci men Type: BLOOD SPECIMENOrdering Facility: [facility] Address: [address] [place] [address] Performed By: #### 2 4331-1, , 3083-04 ####[facility] LABCLIA [id number] [place] [address] [place] Sodium [Moles/Vol] 139 mmol/L Normal 136-144 [facility] Comment on above: Order Comment: Speci men Type: BLOOD SPECIMENOrdering Facility: [facility] Address: [address] [place] [address] Performed By: #### 2 4331-1, , 3083-04 ####[facility] LABCLIA [id number] [place] [address] [place] Urea nitrogen [Mass/Vol] 22 mg/dL Normal 9-24 [facility] Comment on above: Order Comment: Speci men Type: BLOOD SPECIMENOrdering Facility: [facility] Address: [address] [place] [address] Performed By: #### 2 4331-1, , 3083-04 ####[facility] LABCLIA [id number] [place] [address] [place] HbA1c (Bld)on 03-24-2023 Average glucose Estimated from glycated hemoglobin (Bld) [Mass/Vol] 128 mg/dL Normal [facility] Comment on above: Order Comment: Speci men Type: BLOOD SPECIMENOrdering Facility: [facility] Address: [address] [place] [address] Result Comment: eAG: (Estimated average glucose) is a calculated value from HgbA1c and is traveling representative of the average blood glucose level in the last 2-3 month period. Performed By: #### 5 5454-3 ####[facility] LABCLIA [id number] [place] [address] [place] HbA1c (Bld) [Mass fraction] 6.1 % High 4.3-5.6 [facility] Comment on above: Order Comment: Speci men Type: BLOOD SPECIMENOrdering Facility: [facility] Address: [address] [place] [address] Result Comment: [place] Diabetes Association guidelines indicate that patients with HgbA1c in the range 5.7-6.4% are at increased risk for development of diabetes, and intervention by lifestyle modification may be beneficial. HgbA1c greater or equal to 6.5% is considered diagnostic of diabetes. Performed By: #### 5 5454-3 ####[facility] LABIA [id number] [place] [address] [place] Lipid 1996 panelon 3 Cholesterol [Mass/Vol] 169 mg/dL Normal <200 [facility] Comment on above: Order Comment: Speci men Type: BLOOD SPECIMENOrdering Facility: [facility] Address: [address] [place] [address] Result Comment: <200 mg/dL, Desirable 200-239 mg/dL, Borderline high >239 mg/dL, High Performed By: #### 2 4331-1, 26106-8, 3084-1 ####[facility] LABIA [id number] [place] [address] [place] Cholesterol in HDL [Mass/Vol] 60 mg/dL Normal >39 [facility] Comment on above: Order Comment: Speci men Type: BLOOD SPECIMENOrdering Facility: [facility] Address: [address] [place] [address] Result Comment: 40-5 9 mg/dL, Acceptable >59 mg/dL, High: Negative risk factor for coronary heart disease <40 mg/dL, Low: Positive risk factor for coronary heart disease Performed By: #### 2 4331-1, 07340-6, 3083-04 ####[facility] LABCLIA [id number] [address] [address] [place] Cholesterol in LDL [Mass/Vol] 95 mg/dL Normal <100 [facility] Comment on above: Order Comment: Speci men Type: BLOOD SPECIMENOrdering Facility: [facility] Address: [address] [place] [address] Result Comment: <100 mg/dL, Optimal 100-129 mg/dL, Near optimal/above optimal 130-159 mg/dL, Borderline high 160-189 mg/dL, High >189 mg/dL, Very high Secondary prevention optimal LDL Cholesterol levels are recommended to be < 70 mg/dL Performed By: #### 2 4331-1, , 3083-04 ####[facility] LABCLIA [id number] [place] [address] [place] Cholesterol in LDL/Cholesterol in HDL [Mass ratio] 1.58 {ratio} Normal <2.54 [facility] Comment on above: Order Comment: Speci men Type: BLOOD SPECIMENOrdering Facility: [facility] Address: [address] [place] [address] Result Comment: Refe rence: 1. National Cholesterol Education Program ATP III Guideline At-A-Glance Quick Desk Reference: National Heart, Lung, and Blood [place]. National Institutes of Health. 2001: NIH Publication No. 01-3305. 2. An International Atherosclerosis Society position paper: global recommendations for the management of dyslipidemia: executive summary, Atherosclerosis. 2014: 232(2):410-413. Performed By: #### 2 4331-1, 99738-5, 3083-04 ####[facility] LABCLIA [id number] [place] [address] [place] Cholesterol in VLDL [Mass/Vol] 14 mg/dL Normal <30 [facility] Comment on above: Order Comment: Speci men Type: BLOOD SPECIMENOrdering Facility: [facility] Address: [address] [place] [address] Performed By: #### 2 4331-1, , 3083-04 ####[facility] LABCLIA [id number] [address] [address] [place] Cholesterol non HDL [Mass/Vol] 109 mg/dL Normal <130 [facility] Comment on above: Order Comment: Speci men Type: BLOOD SPECIMENOrdering Facility: [facility] Address: [address] [place] [address] Result Comment: <130 mg/dL, Optimal 130-159 mg/dL, Near optimal/above optimal 160-189 mg/dL, Borderline high 190-219 mg/dL, High >219 mg/dL, Very high Secondary prevention optimal non HDL Cholesterol levels are recommended to be <100 mg/dL Performed By: #### 2 1-1, , 3083-04 ####[facility] LABCLIA [id number] [address] [address] [place] Cholesterol.total/Ch olesterol in HDL [Mass ratio] 2.82 {ratio} Normal <5.10 [facility] Comment on above: Order Comment: Speci men Type: BLOOD SPECIMENOrdering Facility: [facility] Address: [address] [place] [address] Performed By: #### 2 4331-1, , 3083-04 ####[facility] LABCLIA [id number] [address] [address] [place] FASTING TIME 13 hrs Normal [facility] Comment on above: Order Comment: Speci men Type: BLOOD SPECIMENOrdering Facility: [facility] Address: [address] [place] [address] Performed By: #### 2 4331-1, , 3083-04 ####[facility] LABCLIA [id number] [place] [address] [place] [facility] Triglyceride [Mass/Vol] 71 mg/dL Normal <150 [facility] Comment on above: Order Comment: Speci men Type: BLOOD SPECIMENOrdering Facility: [facility] Address: [place] [address] Result Comment: <150 mg/dL, Normal 150-199 mg/dL, Borderline high 200-499 mg/dL, High >499 mg/dL, Very high Performed By: #### 2 4331-1, 01604-4, 3083- ####[facility] LABCLIA [id number] [address] [place] Urate SerPl-mCncon 3 Urate [Mass/Vol] 4.7 mg/dL Normal 4.0-8.1 [facility] Comment on above: Order Comment: Speci men Type: BLOOD SPECIMENOrdering Facility: [facility] Address: [address] [place] [address] Performed By: #### 2 4331-1, 76755-9, ####[facility] LABCLIA [id number] [address] [place] CNPElsie 02-07-2023 CNPN Telephone (TIFFANI) SILVER,JOSH Mccurdy ([id number]) 1965 M Date Time Provider Department 02/07/23 DARIN MARTE During your visit today, we recorded the following information about you: Mary Ann Lo 02/07/2023 3:12 PM Signed Marie Galindo RN [facility] Clerical Pool 05/30 at 430? Looks like 04/18/ is now booked ----- Message ----- From: Darin Marte MD Sent: 01/26/2023 11:06 AM EDT To: Elvin Vaca DO; Marie Galindo RN; * ok to overbook at 4:30 04-18-[address] Estuardo MD: Thank you for the opportunity to participate in the care of your patient, Josh Sheppard on 01/18/2023. My assessment and plan are attached below. Good morning!. I saw this patient today and he appears to be having palpitations with possible symptomatic PVCs. I discussed with him obtaining a cardia mobile device to try to help evaluate dysrhythmia as these possibly to be rare for monitoring. I have made no additions or changes. Would you like to see him possibly sooner or have him seen by your nurse practitioner? I made him aware that I would reach out to you to see what your thoughts would be. Thank you so much, Mary Ann Sykes 02/07/2023 3:12 PM Signed First attempt: called patient and left voicemail for patient to call back and schedule appointment Mary Ann Lo 2023 12:18 PM Signed Second attempt: called patient and left voicemail for patient to all back and schedule appointment with Dr Marte 05/30 4:30 PM (ok to add on) Allergies As of Date: 02/07/2023 Noted Allergy Reaction SEASONAL ALLERGIES 09/22/2015 16 - Unknown Comments: Sinus congestion Date Reviewed: 01/18/2023 Reviewed by: Elvin Vaca DO - Fully Assessed Reason for Visit: Appointment [186] Prescriptions as of 2023 - allopurinol (ZYLOPRIM) 300 mg tablet Take 1 tablet by mouth once daily. - lovastatin (MEVACOR) 10 mg tablet Take 1 tablet by mouth daily at bedtime. For cholesterol. - apixaban (ELIQUIS) 5 mg tab(s) Take 1 tablet by mouth twice daily. - omeprazole (PRILOSEC) 20 mg capsule Take 1 capsule by mouth once daily. - dilTIAZem XR (DILACOR XR) 120 mg 24 hr capsule Take 1 capsule by mouth once daily. - cetirizine (ZYRTEC) 10 mg tablet Take 10 mg by mouth once daily. - Cholecalciferol, Vitamin D3, 1,000 unit cap Take 1 capsule by mouth once daily. - aspirin, enteric coated (ASPIRIN, ENTERIC COATED) 81 mg EC tablet Take 1 tablet by mouth once daily. - Magnesium 250 mg tab Take 1 tablet by mouth. Facility-Administered Medications as of 2023 - perflutren lipid microspheres 1.3 mL in NaCl (PF) 0.9% 10 mL injection (DEFINITY) - sodium chloride 0.9 % (flush) 10 mL (BD POSIFLUSH) Problem List As Of Date 02/07/2023 Noted Resolved Chest pain [786.5] 06/07/1997 08/22/2018 Class: Chronic ALLERGIC RHINITIS NOS [J30.9] 04/18/2006 Gouty arthropathy [M10.9] 09/07/2006 Snoring [R06.83] 08/14/2009 Gout [M10.9] 08/14/2009 08/22/2018 Mixed hyperlipidemia [E78.2] 01/07/2010 LFT elevation [R79.89] 01/15/2014 08/22/2018 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 (HCC) [I48.0] 01/15/2014 Lip lesion [K13.0] 10/02/2014 08/22/2018 Syringomyelia and syringobulbia (HCC) [G95.0] History of colonic polyps [Z86.010] 02/22/2018 Essential hypertension [I10] 03/29/2019 Hypoglycemia [E16.2] 05/09/2020 05/09/2020 Hyperglycemia [R73.9] 05/09/2020 Microscopic hematuria [R31.29] 09/24/2020 Encounter for monitoring flecainide therapy [Z5*03/17/2021 assisted current use of anticoagulant [Z79.01] 06/09/2021 Obesity, Class I, BMI 30-34.9 [E66.9] 07/01/2021 S/P ablation of atrial fibrillation [Z98.890, Z*09/21/2021 Arrhythmia [I49.9] 11/04/2021 Encounter Status:Closed by MARY ANN LO on 02/08/23 [facility] CNOVon 01-18-2023 CNOV Office Visit (CARDMM ) JOSH SHEPPARD ([id number]) 1965 M Date Time Provider Department 01/18/23 9:20 AM ELVIN VACA During your visit today, we recorded the following information about you: Pulse Blood pressure Weight Height 73/minute 120/88 112.9 kg 1.829 m Elvin Vaca DO 01/18/2023 10:04 AM Signed [facility] CARDIOLOG[facility] OUTPATIENT VISIT DATE January 18, 2023 PRIMARY CARE PHYSICIAN: Parish Crouch [address] [place] [address] HISTORY OF PRESENT ILLNESS: Mr. Sheppard is a 57 year old male. The patient returns for follow-up second history of paroxysmal atrial fibrillation and atrial flutter status post redo ablation. He has additional history of hypertension and hyperlipidemia. He remains on long-term anticoagulation with Eliquis. He recently had a flare of palpitations described as skipping beats for which she believes he may have had symptomatic PVCs. He was seen prior to such in the emergency room where PVCs were seen as well. This was outside of the [facility] system. He denies chest discomfort, dyspnea on exertion, orthopnea, paroxysmal nocturnal dyspnea, near-syncope or syncope. He denies GI/ bleeding or melena. 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 PLAN AND RECOMMENDATIONS: The patient appears stable without overt symptoms of suggest angina, cardiac decompensation or paroxysms of his atrial fibrillation. He however did have palpitations for which he may have have symptomatic PVCs. They appear to be too rare to consider telemetry monitoring. At this point time we will reach out to electrophysiology for their thoughts. In the interim we discussed potentially obtaining technology such as an [employer] watch or a [employer] mobile device so that the patient can evaluate dysrhythmia associated with his symptoms. We have made no additions or changes today. Dietary and lifestyle modification was reemphasized to facilitate risk factor reduction. We will look forward to reevaluate him from a general cardiology standpoint in 1 years time. Vitals: BP 120/88 Pulse 73 Ht 182.9 cm (6') Wt 112.9 kg (249 lb) SpO2 97% BMI 33.77 kg/m? Physical Exam Vitals reviewed. Constitutional: General: He is not in acute distress. Appearance: He is well-developed. He is not diaphoretic. HENT: Head: Normocephalic and atraumatic. Right Ear: External ear normal. Left Ear: External ear normal. Nose: Nose normal. Eyes: General: No scleral icterus. Right eye: No discharge. Left eye: No discharge. Pupils: Pupils are equal, round, and reactive to light. Neck: Thyroid: No thyromegaly. Vascular: No JVD. Cardiovascular: Rate and Rhythm: Normal rate and regular rhythm. Heart sounds: No murmur heard. No friction rub. No gallop. Pulmonary: Effort: Pulmonary effort is normal. No respiratory distress. Breath sounds: Normal breath sounds. No wheezing or rales. Abdominal: General: Bowel sounds are normal. Palpations: Abdomen is soft. Musculoskeletal: General: Normal range of motion. Cervical back: Neck supple. Skin: General: Skin is warm and dry. Coloration: Skin is not pale. Neurological: Mental Status: He is alert and oriented to person, place, and time. Cranial Nerves: No cranial nerve deficit. Psychiatric: Mood and Affect: Mood is not anxious or depressed. Behavior: Behavior normal. Thought Content: Thought content normal. Judgment: Judgment normal. Review of Systems Constitutional: Negative for activity change, appetite change, fatigue and unexpected weight change. HENT: Negative for ear pain and trouble swallowing. Eyes: Negative for pain and visual disturbance. Respiratory: Negative for chest tightness and shortness of breath. Cardiovascular: Positive for palpitations. Negative for chest pain and leg swelling. Gastrointestinal: Negative for abdominal pain and blood in stool. Endocrine: Negative for cold intolerance and heat intolerance. Genitourinary: Negative for dysuria, hematuria and scrotal swelling. Musculoskeletal: Negative for arthralgias and myalgias. Skin: Negative for pallor and rash. Allergic/Immunologic: Negative for immunocompromised state. Neurological: Negative for dizziness, syncope and light-headedness. Hematological: Negative for adenopathy. Does not bruise/bleed easily. Psychiatric/Behavioral : Negative for sleep disturbance. The patient is not nervous/anxious. 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 PAST SURGICAL HISTORY Procedure Laterality Date COLONOSCOPY FLX DX W/COLLJ SPEC WHEN PFRMD 09/15/2017 Colonoscopy PAST SURGICAL HISTORY (more content not included)... Normal [facility] XR Thoracic spine AP and Lat eral and Swimmerson 07-13-2022 IMPRESSION: Degenerative changes. Wet And Dry Sugar Bin Operator: [facility] Transcribe Date/Time: Jul 13 2022 5:39A Dictated by : LENI MCDONALD MD This examination was interpreted and the report reviewed and electronically signed by: LENI MCDONALD MD on Jul 13 2022 6:19AM [facility] DIVISION OF RADIOLOGY * * *Final Report* * * DATE OF EXAM: Jul 10 2022 11:05AM WOX [id number] - XR THORACIC 3V AP/LAT/SWIMMERS / PROCEDURE REASON: Upper back pain * * * * Physician Interpretation * * * * TITLE: XR THORACIC 3V AP/LAT/SWIMMERS CLINICAL INDICATION: Back pain TECHNIQUE: 3 view radiographic study of the thoracic spine COMPARISON: None FINDINGS: Preservation of vertebral body height. Mild multilevel disc space narrowing with scattered miniscule marginal osteophyte formation. DIVISION OF RADIOLOGY Provider, [facility] - 07/13/2022 * * *Final Report* * * DATE OF EXAM: Jul 10 2022 11:05AM WOX [id number] - XR THORACIC 3V AP/LAT/SWIMMERS / PROCEDURE REASON: Upper back pain * * * * Physician Interpretation * * * * TITLE: XR THORACIC 3V AP/LAT/SWIMMERS CLINICAL INDICATION: Back pain TECHNIQUE: 3 view radiographic study of the thoracic spine COMPARISON: None FINDINGS: Preservation of vertebral body height. Mild multilevel disc space narrowing with scattered miniscule marginal osteophyte formation. IMPRESSION IMPRESSION: Degenerative changes. Wet And Dry Sugar Bin Operator: [facility] Transcribe Date/Time: Jul 13 2022 5:39A Dictated by : LENI MCDONALD MD This examination was interpreted and the report reviewed and electronically signed by: LENI MCDONALD MD on Jul 13 2022 6:19AM EST [facility] XR Thoracic spine AP and Lat eral and SwimmersOrdered By: Ccf Provider on 07-13-2022 [facility] XR Thoracic spine AP and Lat eral and Swimmerson 07-10-2022 Radiology Study observation (narrative) [facility] XR Ribs - left Views and Tiarra st PAon 06-23-2022 IMPRESSION: No acute left displaced rib fracture identified. Wet And Dry Sugar Bin Operator: [facility] Transcribe Date/Time: Jun 23 2022 3:51P Dictated by : LENI MCDONALD MD This examination was interpreted and the report reviewed and electronically signed by: LENI MCDONALD MD on Jun 23 2022 3:53PM EST DIVISION OF RADIOLOGY * * *Final Report* * * DATE OF EXAM: Jun 22 2022 4:33PM WOX [id number] - XR RIB/CHST 3V AP RIB/OBL/CHST L / PROCEDURE REASON: Chest wall pain * * * * Physician Interpretation * * * * TITLE: XR RIB/CHST 3V AP RIB/OBL/CHST L CLINICAL INDICATION: Chest wall pain TECHNIQUE: 3 views of left-sided radiographic rib series with inclusion of a single frontal view of the chest for purposes of comparison sestamibi COMPARISON: None FINDINGS: Normal cardiomediastinal silhouette. No focal consolidation. No discernible pleural effusion or pneumothorax. No acute displaced left rib fracture identified DIVISION OF RADIOLOGY Provider, [facility] - 06/23/2022 * * *Final Report* * * DATE OF EXAM: Jun 22 2022 4:33PM WOX [id number] - XR RIB/CHST 3V AP RIB/OBL/CHST L / PROCEDURE REASON: Chest wall pain * * * * Physician Interpretation * * * * TITLE: XR RIB/CHST 3V AP RIB/OBL/CHST L CLINICAL INDICATION: Chest wall pain TECHNIQUE: 3 views of left-sided radiographic rib series with inclusion of a single frontal view of the chest for purposes of comparison sestamibi COMPARISON: None FINDINGS: Normal cardiomediastinal silhouette. No focal consolidation. No discernible pleural effusion or pneumothorax. No acute displaced left rib fracture identified IMPRESSION IMPRESSION: No acute left displaced rib fracture identified. Wet And Dry Sugar Bin Operator: [facility] Transcribe Date/Time: Jun 23 2022 3:51P Dictated by : LENI MCDONALD MD This examination was interpreted and the report reviewed and electronically signed by: LENI MCDONALD MD on Jun 23 2022 3:53PM EST [facility] XR Ribs - left Views and Tiarra st PAOrdered By: Ccf Provider on 06-23-2022 [facility] XR Ribs - left Views and Tiarra st PAon 06-22-2022 Radiology Study observation (narrative) [facility] ARRHYTHMIA TRANS TELE MEASUR Lc 02-04-2022 Measure MD Interval 130 [facility] MEASURE QRS Interval 60 [facility] MEASURE QT Interval 450 [facility] MEASURE RR INTERVAL MAX 56.44 [facility] Symptoms routine [facility] ARRHYTHMIA TRANS TELE MEASUR Lc 01-28-2022 Measure MD Interval 130 [facility] MEASURE QRS Interval 60 [facility] MEASURE QT Interval 296 [facility] MEASURE RR INTERVAL MAX 74.94 [facility] Symptoms routine [facility] ARRHYTHMIA TRANS TELE MEASUR Lc 01-22-2022 Measure MD Interval 130 [facility] MEASURE QRS Interval 76 [facility] MEASURE QT Interval 362 [facility] MEASURE RR INTERVAL MAX 64.5 [facility] Symptoms routine [facility] ARRHYTHMIA TRANS TELE MEASUR Lc 01-14-2022 Measure MD Interval 130 [facility] MEASURE QRS Interval 60 [facility] MEASURE QT Interval 392 [facility] MEASURE RR INTERVAL MAX 71.1 [facility] Symptoms routine, weird beats/palpitations [facility] ARRHYTHMIA TRANS TELE MEASUR Lc 01-07-2022 Measure MD Interval 130 [facility] MEASURE QRS Interval 60 [facility] MEASURE QT Interval [address] [facility] MEASURE RR INTERVAL MAX 75.25 [facility] Symptoms Routine [facility] ARRHYTHMIA TRANS TELE MEASUR Lc 12-29-2021 Measure MD Interval 130 [facility] MEASURE QRS Interval 60 [facility] MEASURE QT Interval 372 [facility] MEASURE RR INTERVAL MAX 75.53 [facility] Symptoms routine [facility] ARRHYTHMIA TRANS TELE MEASUR Lc 12-18-2021 Measure MD Interval 153 [facility] MEASURE QRS Interval 60 [facility] MEASURE QT Interval 395 [facility] MEASURE RR INTERVAL MAX 71.1 [facility] Symptoms routine [facility] ARRHYTHMIA TRANS TELE MEASUR Lc 12-08-2021 Measure MD Interval 188 [facility] MEASURE QRS Interval 84 [facility] MEASURE QT Interval 396 [facility] MEASURE RR INTERVAL MAX 60.88 [facility] Symptoms routine [facility] ARRHYTHMIA TRANS TELE MEASUR Lc 11-26-2021 Measure MD Interval 130 [facility] MEASURE QRS Interval 60 [facility] MEASURE QT Interval [address] [facility] MEASURE RR INTERVAL MAX 58.45 [facility] Symptoms routine [facility] ARRHYTHMIA TRANS TELE MEASUR Lc 11-11-2021 Measure MD Interval [address] [facility] MEASURE QRS Interval 76 [facility] MEASURE QT Interval [address] [facility] MEASURE RR INTERVAL MAX 55.06 [facility] Symptoms routine [facility] ARRHYTHMIA TRANS TELE MEASUR Lc 11-03-2021 Measure MD Interval 151 [facility] MEASURE QRS Interval 80 [facility] MEASURE QT Interval [address] [facility] MEASURE RR INTERVAL MAX 72.76 [facility] Symptoms routine [facility] ARRHYTHMIA TRANS TELE MEASUR Lc 10-22-2021 Measure MD Interval [address] [facility] MEASURE QRS Interval 86 [facility] MEASURE QT Interval 382 [facility] MEASURE RR INTERVAL MAX 60 [facility] Symptoms routine [facility] ARRHYTHMIA TRANS TELE MEASUR Lc 10-13-2021 Measure MD Interval 159 [facility] MEASURE QRS Interval 60 [facility] Interval 379 [facility] MEASURE RR INTERVAL MAX 60.4 [facility] Symptoms routine [facility] ARRHYTHMIA TRANS TELE MEASUR Lc 10-01-2021 Measure MD Interval 130 [facility] MEASURE QRS Interval 60 [facility] Interval 279 [facility] MEASURE RR INTERVAL MAX 140 [facility] Symptoms Coming in for cardioversion today @ main with Dr. Hudson [facility] ARRHYTHMIA TRANS TELE MEASUR Lc 09-30-2021 MEASURE QRS Interval 63 [facility] MEASURE QT Interval [address] [facility] MEASURE RR INTERVAL MAX 129.71 [facility] Symptoms pt. feeling tired [facility] MEASURE QRS Interval 63 [facility] MEASURE QT Interval [address] [facility] MEASURE RR INTERVAL MAX 129.71 [facility] Symptoms pt. feeling tired [facility] ARRHYTHMIA TRANS TELE MEASUR Lc 09-29-2021 Measure MD Interval [address] [facility] MEASURE QRS Interval 60 [facility] MEASURE QT Interval [address] [facility] MEASURE RR INTERVAL MAX 128.09 [facility] Symptoms PT due to come in fo r cardioversion 10/01 Dr. Tristan pereyra trans everyday [facility] ARRHYTHMIA TRANS TELE MEASUR Lc 09-28-2021 ARRHYTH-MEASURE QRS INTERVAL MIN 83 [facility] ARRHYTH-MEASURE QT INTERVAL MIN 294 [facility] Arrhyth-Measure RR Interval Min 89.62 [facility] ARRHYTH-MEASUREPRINT ERVALMIN 122 [facility] Arrhythmia-Activity sitting [facility] Measure MD Interval [address] [facility] MEASURE QRS Interval 93 [facility] ME[facility] QT Interval 310 [facility] MEASURE RR INTERVAL MAX 149 [facility] Symptoms [id number] [facility] ARRHYTHMIA TRANS TELE MEASUR Lc 09-17-2021 Measure MD Interval [address] [facility] MEASURE QRS Interval 93 [facility] ME[facility] QT Interval 473 [facility] MEASURE RR INTERVAL MAX 62.57 [facility] Symptoms Routine [facility] ARRHYTHMIA TRANS TELE MEASUR Lc 09-03-2021 Measure MD Interval [address] [facility] MEASURE QRS Interval 90 [facility] MEASURE QT Interval 348 [facility] MEASURE RR INTERVAL MAX 78.85 [facility] Symptoms routine [facility] ARRHYTHMIA TRANS TELE MEASUR Lc 08-27-2021 Measure MD Interval 175 [facility] MEASURE QRS Interval 60 [facility] MEASURE QT Interval 375 [facility] MEASURE RR INTERVAL MAX 64.16 [facility] Symptoms ROUTINE, [facility] ARRHYTHMIA TRANS TELE MEASUR Lc 08-19-2021 Measure MD Interval 158 [facility] MEASURE QRS Interval 111 [facility] ME[facility] QT Interval [address] [facility] MEASURE RR INTERVAL MAX 82.49 [facility] Symptoms routine [facility] ARRHYTHMIA TRANS TELE MEASUR Lc 07-30-2021 Measure MD Interval 148 [facility] MEASURE QRS Interval 60 [facility] MEASURE QT Interval [address] [facility] MEASURE RR INTERVAL MAX 65.81 [facility] Symptoms Routine [facility] ARRHYTHMIA TRANS TELE MEASUR Lc 07-23-2021 Measure MD Interval [address] [facility] MEASURE QRS Interval 93 [facility] MEASURE QT Interval [address] [facility] MEASURE RR INTERVAL MAX 64.5 [facility] Symptoms routine [facility] ARRHYTHMIA TRANS TELE MEASUR Lc 07-16-2021 Measure MD Interval [address] [facility] MEASURE QRS Interval 80 [facility] MEASURE QT Interval [address] [facility] MEASURE RR INTERVAL MAX 70.82 [facility] Symptoms routine [facility] ARRHYTHMIA TRANS TELE MEASUR Lc 07-02-2021 Measure MD Interval 94 [facility] MEASURE QRS Interval 60 [facility] MEASURE QT Interval 285 [facility] MEASURE RR INTERVAL MAX 130.66 [facility] Symptoms baseline [facility] CNPNon 05-09-2020 CNPN Telephone (AKURFL) JOSH SHEPPARD ([id number]) 1965 M Date Time Provider Department 05/09/20 RENAY PATEL During your visit today, we recorded the following information about you: Araseli Peralta 05/09/2020 11:41 AM Signed Left pt vm need to schedule cysto in [place] [facility] per Dr. Patel. He said we could add him to 05/22/20 schedule. Alexandrea Emery PSS 05/12/2020 8:48 AM Signed PT called and was scheduled in [place] on 05/[address] Patel - I LVM for him if he wants to change and Come in [place] on 05/22 as per 's message to call me back. Thanks Allergies As of Date: 05/09/2020 Noted Allergy Reaction SEASONAL ALLERGIES 09/22/2015 16 - Unknown Comments: Sinus congestion Date Reviewed: 05/08/2020 Reviewed by: Luanne Solitario Ma - Fully Assessed Reason for Visit: Appointment [186] Prescriptions as of 05/09/2020 Sig: LOVASTATIN 10 MG TABLET Take 1 tablet by mouth daily * FLECAINIDE 150 MG TABLET Take 1 tablet by mouth twice * PRILOSEC ORAL Take by mouth. ALLOPURINOL 300 MG TABLET Take 1 tablet by mouth once d* DILTIAZEM SR 180 MG 24 HR CAP Take 1 capsule by mouth once * CHOLECALCIFEROL (VITAMIN D3) * Take 1 capsule by mouth once * ASPIRIN 81 MG TABLET,DELAYED * Take 1 tablet by mouth once d* MAGNESIUM 250 MG TABLET Take 1 tablet by mouth. Problem List As Of Date 05/09/2020 Noted Resolved Chest pain [786.5] 06/07/1997 08/22/2018 Class: Chronic ALLERGIC RHINITIS NOS [J30.9] 04/18/2006 Gouty arthropathy [M10.9] 09/07/2006 Snoring [R06.83] 08/14/2009 Gout [M10.9] 08/14/2009 08/22/2018 Mixed hyperlipidemia [E78.2] 01/07/2010 LFT elevation [R79.89] 01/15/2014 08/22/2018 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 (HCC) [I48.0] 01/15/2014 More... Lip lesion [K13.0] 10/02/2014 08/22/2018 Syringomyelia and syringobulbia (HCC) [G95.0] More... History of colonic polyps [Z86.010] 02/22/2018 More... Essential hypertension [I10] 03/29/2019 Hypoglycemia [E16.2] 05/09/2020 05/09/2020 Hyperglycemia [R73.9] 05/09/2020 Encounter Status:Closed by ARASELI MCDOWELL on 05/09/20 [facility] Vital Signs Date Time Vital Sign Value Performing Clinician Ines maier 02-01-2024 14:53-0400 Body height 182.9 cm Elvin Jo DO Work Phone: [facility] 02-01-2024 14:53-0400 Body mass index (BMI) [Ratio] 35.37 kg/m2 Elvin Jo DO Work Phone: [facility] 02-01-2024 14:53-0400 Body weight 118.3 kg Elvin Jo DO Work Phone: [facility] 02-01-2024 14:53-0400 Diastolic blood pressure 84 mm[Hg] Elvin Vaca DO Work Phone: [facility] 02-01-2024 14:53-0400 Heart rate 82 /min Elvin Vaca [employer] Work Phone: [facility] 02-01-2024 14:53-0400 SaO2% (BldA) [Mass fraction] 98 % Elvin Vaca DO Work Phone: [facility] 02-01-2024 14:53-0400 Systolic blood pressure 118 mm[Hg] Elvin Vaca DO Work Phone: [facility] 09-30-2023 08:28-0400 Body height 182.9 cm Parish Crouch MD Work Phone: [facility] 09-30-2023 08:28-0400 Body mass index (BMI) [Ratio] 33.5 kg/m2 Parish Crouch MD Work Phone: [facility] 09-30-2023 08:28-0400 Body weight 112.04 kg Parish Crouch MD Work Phone: [facility] 09-30-2023 08:28-0400 Diastolic blood pressure 72 mm[Hg] Parish Crouch MD Work Phone: [facility] 09-30-2023 08:28-0400 Heart rate 68 /min Parish Crouch MD Work Phone: [facility] 09-30-2023 08:28-0400 SaO2% (BldA) [Mass fraction] 96 % Parish Crouch MD Work Phone: [facility] 09-30-2023 08:28-0400 Systolic blood pressure 104 mm[Hg] Parish Crouch MD Work Phone: [facility] 09-15-2022 15:43-0400 Body height 182.9 cm Parish Crouch MD Work Phone: [facility] 09-15-2022 15:43-0400 Body weight 113.04 kg Parish Crouch MD Work Phone: [facility] 09-15-2022 15:43-0400 Diastolic blood pressure 64 mm[Hg] Parish Crouch MD Work Phone: [facility] 09-15-2022 15:43-0400 Heart rate 79 /min Parish Crouch MD Work Phone: [facility] 09-15-2022 15:43-0400 SaO2% (BldA) [Mass fraction] 95 % Parish Crouch MD Work Phone: [facility] 09-15-2022 15:43-0400 Systolic blood pressure 116 mm[Hg] Parish Crouch MD Work Phone: [facility] 07-26-2022 08:04-0400 Body height 182.9 cm Donnell Mark MD Work Phone: [facility] 07-26-2022 08:04-0400 Body weight 116.12 kg Donnell Mark MD Work Phone: [facility] 07-26-2022 08:04-0400 Heart rate 66 /min Donnell Mark MD Work Phone: [facility] 07-26-2022 08:04-0400 SaO2% (BldA) [Mass fraction] 97 % Donnell Mark MD Work Phone: [facility] 06-29-2022 08:16-0400 Body height 182.9 cm Glenn Baldwin MD Work Phone: [facility] 06-29-2022 08:16-0400 Body temperature 97.2 [degF] Glenn Baldwin MD Work Phone: [facility] 06-29-2022 08:16-0400 Body weight 117.21 kg Glenn Baldwin MD Work Phone: [facility] 06-29-2022 08:16-0400 Diastolic blood pressure 80 mm[Hg] Glenn Baldwin MD Work Phone: [facility] 06-29-2022 08:16-0400 Heart rate 76 /min Glenn Baldwin MD Work Phone: [facility] 06-29-2022 08:16-0400 SaO2% (BldA) [Mass fraction] 95 % Glenn Baldwin MD Work Phone: [facility] 06-29-2022 08:16-0400 Systolic blood pressure 132 mm[Hg] Glenn Baldwin MD Work Phone: [facility] 04-26-2022 09:01-0500 Body height 182.9 cm Elvin Vaca DO Work Phone: [facility] 04-26-2022 09:01-0500 Body weight 115.49 kg Elvin Vaca DO Work Phone: [facility] 04-26-2022 09:01-0500 Diastolic blood pressure 74 mm[Hg] Elvin Vaca DO Work Phone: [facility] 04-26-2022 09:01-0500 Heart rate 68 /min Elvin Vaca DO Work Phone: [facility] 04-26-2022 09:01-0500 SaO2% (BldA) [Mass fraction] 98 % Elvin Vaca DO Work Phone: [facility] 04-26-2022 09:01-0500 Systolic blood pressure 114 mm[Hg] Elvin Vaca DO Work Phone: [facility] 09-28-2021 12:02-0400 Body height 182.9 cm Darin Marte MD Work Phone: [facility] 09-28-2021 12:02-0400 Body weight 103.87 kg Darin Marte MD Work Phone: [facility] 09-28-2021 12:02-0400 Diastolic blood pressure 66 mm[Hg] Darin Marte MD Work Phone: [facility] 09-28-2021 12:02-0400 Heart rate 127 /min Darin Marte MD Work Phone: [facility] 09-28-2021 12:02-0400 SaO2% (BldA) [Mass fraction] 100 % Darin Marte MD Work Phone: [facility] 09-28-2021 12:02-0400 Systolic blood pressure 114 mm[Hg] Darin Marte MD Work Phone: [facility] 09-21-2021 09:05-0400 Body height 182.9 cm Elvin Vaca DO Work Phone: [facility] 09-21-2021 09:05-0400 Body weight 105.69 kg Elvin Vaca DO Work Phone: [facility] 09-21-2021 09:05-0400 Diastolic blood pressure 80 mm[Hg] Elvin Vaca DO Work Phone: [facility] 09-21-2021 09:05-0400 Heart rate 61 /min Elvin Vaca DO Work Phone: [facility] 09-21-2021 09:05-0400 SaO2% (BldA) [Mass fraction] 99 % Elvin Vaca DO Work Phone: [facility] 09-21-2021 09:05-0400 Systolic blood pressure 118 mm[Hg] Elvin Vaca DO Work Phone: [facility] 09-11-2021 16:15-0400 Body weight 105.23 kg Parish Crouch MD Work Phone: [facility] 09-11-2021 16:15-0400 Diastolic blood pressure 78 mm[Hg] Parish Crouch MD Work Phone: [facility] 09-11-2021 16:15-0400 Heart rate 64 /min Parish Crouch MD Work Phone: [facility] 09-11-2021 16:15-0400 SaO2% (BldA) [Mass fraction] 98 % Parish Crouch MD Work Phone: [facility] 09-11-2021 16:15-0400 Systolic blood pressure 128 mm[Hg] Parish Crouch MD Work Phone: [facility] Encounters Encounter Date Encounter Type Care Provider Facility Start: 02-01-2024 End: 02-01-2024 Patient encounter procedure Elvin Vaca DO Work Phone: Cardiology Comment on above: SUTTON (dyspnea on exer tion) (Primary Dx); Palpitations; 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 (HCC); S/P ablation of atrial fibrillation; Essential hypertension; 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 hyperlipidemia; 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 Start: 01-16-2024 End: 01-17-2024 Telephone encounter Eunice Feliciano APRN.CNP Work Phone: [facility] Comment on above: Results Start: 12-30-2023 End: 12-30-2023 Refill Parish Crouch MD Work Phone: [facility] Comment on above: Refill Request Start: 12-15-2023 End: 12-15-2023 Refill Parish Crouch MD Work Phone: [facility] Comment on above: Refill Request Start: 09-30-2023 End: 09-30-2023 ambulatory PARISH CROUCH Facility:[facility] Start: 09-30-2023 End: 09-30-2023 Patient encounter procedure Parish Crouch MD Work Phone: [facility] Comment on above: Paroxysmal atrial fi brillation (HCC) (Primary Dx); Mixed hyperlipidemia; Essential hypertension; S/P ablation of atrial fibrillation; Gastroesophageal reflux disease without esophagitis; Gouty arthropathy; Hyperglycemia; Need for vaccination; Screening for prostate cancer Start: 09-28-2023 End: 09-28-2023 ambulatory PARISH Umanzor WILLA Facility:[facility] Start: 05-05-2023 End: [facility] Start: 04-21-2023 End: 04-21-2023 [facility] Start: 03-29-2023 End: 03-29-2023 [facility] Start: 03-24-2023 End: 03-24-2023 ambulatory [facility] Facility:[facility] Start: 02-11-2023 Refill Parish Crouch MD Work Phone: [facility] [place] Comment on above: Refill Request Start: 02-07-2023 Telephone encounter Darin guy MD Work Phone: Cardiology Comment on above: Appointment Start: 01-19-2023 Refill Parish Crouch MD Work Phone: [address] [place] [address] Comment on above: Refill Request Start: 01-18-2023 End: 01-18-2023 ambulatory PARISH CROUCH Facility:[facility] Start: 12-15-2022 Refill Parish Crouch MD Work Phone: [facility] Comment on above: Refill Request Start: 11-18-2022 E-mail encounter fro m caregiver Elvin Vaca DO Work Phone: [facility] Start: 11-18-2022 Patient encounter procedure Elvin Vaca DO Work Phone: Cardiology Comment on above: Appointment Start: 09-15-2022 End: 09-15-2022 Patient encounter procedure Parish Crouch MD Work Phone: [facility] Comment on above: Paroxysmal atrial fi brillation (HCC) (Primary Dx); Screening for colon cancer; Mixed hyperlipidemia; Syringomyelia and syringobulbia (HCC); Essential hypertension; S/P ablation of atrial fibrillation; Hyperglycemia; Gouty arthropathy Start: 07-26-2022 End: 07-26-2022 Patient encounter procedure Donnell Mark MD Work Phone: Pain Management Comment on above: Myofascial pain synd aleida of thoracic spine (Primary Dx); DDD (degenerative disc disease), thoracic; Syringomyelia and syringobulbia (HCC) Start: 07-13-2022 Telephone encounter [facility] Comment on above: Results Start: 07-10-2022 End: 07-10-2022 Subsequent hospital visit by physician Dorina [facility] Work Phone: Radiology Comment on above: Upper back pain [M54 .9] Start: 06-29-2022 Telephone encounter Parish Crouch MD Work Phone: [facility] Comment on above: Results Start: 06-29-2022 End: 06-29-2022 Patient encounter procedure Glenn Baldwin MD Work Phone: General Surgery Comment on above: Lesion of subcutaneo us tissue (Primary Dx); Umbilical hernia without obstruction or gangrene Start: 06-25-2022 Telephone encounter Parish Crouch MD Work Phone: [facility] Comment on above: Results Start: 06-22-2022 End: 06-22-2022 Subsequent hospital visit by physician Dorina [facility] Work Phone: Radiology Comment on above: Chest wall pain [R07 .89] Start: 05-17-2022 Refill Elvin Vaca DO Work Phone: Cardiology Comment on above: Refill Request Start: 05-15-2022 Refill Elvin Vaca DO Work Phone: Cardiology Comment on above: Refill Request Start: 04-26-2022 End: 04-26-2022 Patient encounter procedure Elvin Vaca DO Work Phone: Cardiology Comment on above: Paroxysmal atrial fi brillation (HCC) (Primary Dx); S/P ablation of atrial fibrillation; Essential hypertension; Mixed hyperlipidemia; assisted current use of anticoagulant Start: 04-14-2022 Refill Parish Crouch MD Work Phone: [address] [place] [address] Comment on above: Refill Request Start: 02-04-2022 Arrhythmia TTM Darin marrero MD Work Phone: [facility] Department Start: 02-04-2022 Recurring Plan Darin marrero MD Work Phone: [facility] Start: 01-28-2022 Arrhythmia TTM Darin marrero MD Work Phone: [facility] Department Start: 01-28-2022 Recurring Plan Darin marrero MD Work Phone: [facility] Start: 01-28-2022 Refill Parish Crouch MD Work Phone: [facility] Comment on above: Refill Request Start: 01-22-2022 Arrhythmia TTM Darin marrero MD Work Phone: [facility] Department Start: 01-22-2022 Recurring Plan Darin marrero MD Work Phone: [facility] Start: 01-14-2022 Arrhythmia TTM Darin marrero MD Work Phone: [facility] Start: 01-14-2022 Recurring Plan Darin marrero MD Work Phone: [facility] Start: 01-07-2022 Arrhythmia TTM Darin marrero MD Work Phone: [facility] Start: 01-07-2022 Recurring Plan Darin marrero MD Work Phone: [facility] Start: 12-29-2021 Arrhythmia TTM Darin marrero MD Work Phone: [facility] Start: 12-29-2021 Recurring Plan Darin marrero MD Work Phone: [facility] Start: 12-18-2021 Arrhythmia TTM Darin marrero MD Work Phone: [facility] Start: 12-18-2021 Recurring Plan Darin marrero MD Work Phone: [facility] Start: 12-08-2021 Arrhythmia TTM Darin marrero MD Work Phone: [facility] Start: 12-08-2021 Recurring Plan Darin marrero MD Work Phone: [facility] Start: 11-26-2021 Arrhythmia TTM Darin marrero MD Work Phone: [facility] Start: 11-26-2021 Recurring Plan Darin marrero MD Work Phone: [facility] Start: 11-13-2021 Refill Parish Crouch MD Work Phone: [facility] Comment on above: Prescription Refills Start: 11-11-2021 Arrhythmia TTM Darin marrero MD Work Phone: [facility] Start: 11-11-2021 Recurring Plan Darin marrero MD Work Phone: [facility] Start: 11-05-2021 ambulatory Darin marrero MD Work Phone: Cardiology Comment on above: transmitter Transition Of Care ( [facility] D/C 11/04/2021 from Main [place] ) Start: 11-03-2021 ambulatory Darin marrero MD Work Phone: Cardiology Comment on above: Patient Education (R shaggy PVI/ Atypical AFL RFA) Start: 11-03-2021 Arrhythmia TTM Darin marrero MD Work Phone: [facility] Start: 11-03-2021 Recurring Plan Darin marrero MD Work Phone: [facility] Start: 10-22-2021 Arrhythmia TTM Darin mrarero MD Work Phone: [facility] Start: 10-22-2021 Recurring Plan Darin marrero MD Work Phone: [facility] Start: 10-13-2021 Arrhythmia TTM Darin marrero MD Work Phone: [facility] Start: 10-13-2021 Recurring Plan Darin marrero MD Work Phone: [facility] Start: 10-08-2021 Telephone encounter Darin guy MD Work Phone: Cardiology Comment on above: Received Outside Med ical Records Start: 10-07-2021 Orders Only Neetu Stuart COMPARISON SHOPPER.CONSUMER RELATIONS COMPLAINT CLERK Work Phone: Cardiology Comment on above: Persistent atrial fi brillation (HCC) (Primary Dx) Start: 10-02-2021 Orders Only Darin marrero MD Work Phone: Cardiology Comment on above: Paroxysmal atrial fi brillation (HCC) (Primary Dx) Schedule Surgery (PV I ablation) Patient Update Start: 10-01-2021 Arrhythmia TTM Darin marrero MD Work Phone: [facility] Start: 10-01-2021 Recurring Plan Darin marrero MD Work Phone: [facility] Start: 09-30-2021 ambulatory Diana tirado Comment on above: Patient Education Start: 09-30-2021 Arrhythmia TTM Darin marrero MD Work Phone: [facility] Start: 09-30-2021 Recurring Plan Darin marrero MD Work Phone: [facility] Start: 09-29-2021 Arrhythmia TTM Darin marrero MD Work Phone: [facility] Start: 09-29-2021 Recurring Plan Darin marrero MD Work Phone: [facility] Start: 09-28-2021 Telephone encounter Darin guy MD Work Phone: Cardiology Comment on above: Patient Update Future Appointment ( DCC) Start: 09-28-2021 End: 09-28-2021 Patient encounter procedure Darin Marte MD Work Phone: Cardiology Comment on above: AF (paroxysmal atria l fibrillation) (HCC) (Primary Dx) Start: 09-27-2021 Arrhythmia TTM Darin marrero MD Work Phone: [facility] Start: 09-27-2021 Recurring Plan Darin marrero MD Work Phone: [facility] Start: 09-21-2021 End: 09-21-2021 Patient encounter procedure Elvin Vaca DO Work Phone: Cardiology Comment on above: Paroxysmal atrial fi brillation (HCC) (Primary Dx); Essential hypertension; Mixed hyperlipidemia; Encounter for monitoring flecainide therapy; assisted current use of anticoagulant; S/P ablation of atrial fibrillation Start: 09-17-2021 Arrhythmia TTMargaux marrero MD Work Phone: [facility] Start: 09-17-2021 Recurring Plan Darin marrero MD Work Phone: [facility] Start: 09-11-2021 End: 09-11-2021 Patient encounter procedure Parish Crouch MD Work Phone: [facility] Comment on above: Essential hypertensi on (Primary Dx); 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 (HCC); Hyperglycemia; Gouty arthropathy; Mixed hyperlipidemia Start: 09-03-2021 Arrhythmia TTM Darin marrero MD Work Phone: [facility] Start: 09-03-2021 Recurring Plan Darin marrero MD Work Phone: [facility] Start: 08-27-2021 Arrhythmia TTM Darin marrero MD Work Phone: [facility] Start: 08-27-2021 Recurring Plan Darin marrero MD Work Phone: [facility] MAIN Start: 08-19-2021 Arrhythmia TTM Darin marrero MD Work Phone: [facility] Department Start: 08-19-2021 Recurring Plan Darin marrero MD Work Phone: [facility] Start: 07-30-2021 Arrhythmia TTM Darin marrero MD Work Phone: [facility] Start: 07-30-2021 Recurring Plan Darin marrero MD Work Phone: [facility] Start: 07-23-2021 Arrhythmia TTM Darin marrero MD Work Phone: [facility] Start: 07-23-2021 Recurring Plan Darin marrero MD Work Phone: [facility] Start: 07-16-2021 Arrhythmia TTM Darin marrero MD Work Phone: [facility] Start: 07-16-2021 Recurring Plan Darin marrero MD Work Phone: [facility] Start: 07-07-2021 Orders Only Deirdre Markham COMPARISON SHOPPER .CONSUMER RELATIONS COMPLAINT CLERK Work Phone: Cardiology Comment on above: 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 Start: 07-01-2021 ambulatory Darin marrero MD Work Phone: Cardiology Comment on above: transmitter (90 days - box ) Start: 02-20-2018 Ambulatory [facility] Facility :[facility] Start: 02-18-2017 End: 02-18-2017 Ambulatory [facility] Facility:[facility] Procedures Date Procedure Procedure Detail Performing Clinician Start: 02-01-2024 Ecg routine ecg w/le ast 12 lds i&r only [facility] Provider Start: 05-05-2023 Colonoscopy Parish Breaux MD Work Phone: Start: 03-24-2023 Lipid 1996 panel - S juan c or Plasma Parish Crouch MD Work Phone: Start: 07-10-2022 Radex spine thoracic 3 views Parish Crouch MD Work Phone: Start: 06-24-2022 Lipid 1996 panel - S juan c or Plasma Parish Crouch MD Work Phone: Start: 06-22-2022 Radex ribs uni w/posteroant ch minimum 3 views Parish Crouch MD Work Phone: Start: 02-04-2022 ARRHYTHMIA TRANS TEL E MEASURE Darin Marte MD Work Phone: Start: 01-28-2022 ARRHYTHMIA TRANS TEL E MEASURE Darin Marte MD Work Phone: Start: 01-22-2022 ARRHYTHMIA TRANS TEL E MEASURE Darin Marte MD Work Phone: Start: 01-14-2022 ARRHYTHMIA TRANS TEL E MEASURE Darin Marte MD Work Phone: Start: 01-07-2022 ARRHYTHMIA TRANS TEL E MEASURE Darin Marte MD Work Phone: Start: 12-29-2021 ARRHYTHMIA TRANS TEL E MEASURE Darin Marte MD Work Phone: Start: 12-18-2021 ARRHYTHMIA TRANS TEL E MEASURE Darin Marte MD Work Phone: Start: 12-08-2021 ARRHYTHMIA TRANS TEL E MEASURE Darin Marte MD Work Phone: Start: 11-26-2021 ARRHYTHMIA TRANS TEL E MEASURE Darin Marte MD Work Phone: Start: 11-11-2021 ARRHYTHMIA TRANS TEL E MEASURE Darin Marte MD Work Phone: Start: 11-03-2021 ARRHYTHMIA TRANS TEL E MEASURE Darin Marte MD Work Phone: Start: 10-22-2021 ARRHYTHMIA TRANS TEL E MEASURE Darin Marte MD Work Phone: Start: 10-13-2021 ARRHYTHMIA TRANS TEL E MEASURE Darin Marte MD Work Phone: Start: 10-01-2021 ARRHYTHMIA TRANS TEL E MEASURE Darin Marte MD Work Phone: Start: 09-30-2021 ARRHYTHMIA TRANS TEL E MEASURE Darin Marte MD Work Phone: Start: 09-29-2021 ARRHYTHMIA TRANS TEL E MEASURE Darin Marte MD Work Phone: Start: 09-27-2021 ARRHYTHMIA TRANS TEL E MEASURE Darin Marte MD Work Phone: Start: 09-17-2021 ARRHYTHMIA TRANS TEL E MEASURE Darin Marte MD Work Phone: Start: 09-03-2021 ARRHYTHMIA TRANS TEL E MEASURE Darin Marte MD Work Phone: Start: 08-27-2021 ARRHYTHMIA TRANS TEL E MEASURE Darin Marte MD Work Phone: Start: 08-19-2021 ARRHYTHMIA TRANS TEL E MEASURE Darin Marte MD Work Phone: Start: 07-30-2021 ARRHYTHMIA TRANS TEL E MEASURE Darin Marte MD Work Phone: Start: 07-23-2021 ARRHYTHMIA TRANS TEL E MEASURE Darin Marte MD Work Phone: Start: 07-16-2021 ARRHYTHMIA TRANS TEL E MEASURE Darin Marte MD Work Phone: Start: 07-02-2021 ARRHYTHMIA TRANS TEL E MEASURE Darin Marte MD Work Phone: Start: 09-15-2017 Colonoscopy Darin guy MD Work Phone: Start: 05-30-2017 Adult depression scr eening assessment Darin Marte MD Work Phone: Plan of Treatment Date Care Activity Detail Author Start: 09-29-2033 Urine microalbumin profile DTa P,Tdap,Td Vaccine (3 - Td or Tdap) [facility] Start: 05-05-2028 Screening for malign ant neoplasm of colon [facility] Start: 03-24-2028 Lipid panel Lipid Screening [facility] Start: 09-16-2027 PROSTATE CANCER SCRE ENING DISCUSSION PROSTATE CANCER SCREENING DISCUSSION [facility] Start: 09-16-2027 Prostate specific an tigen measurement Prostate Cancer Screening Discussion [facility] Start: 06-25-2027 Lipid 1996 panel - S juan c or Plasma Lipid Screening [facility] Start: 06-25-2027 LIPID SCREEN LIPID SCREEN [facility] Start: 09-27-2026 Diabetes Screening Diabetes Screenin [facility] Start: 03-25-2026 LIPID SCREEN LIPID SCREEN [facility] Start: 06-24-2025 DIABETES SCREEN DIABETES SCREEN [facility] Start: 06-24-2025 Diabetes Screening Diabetes Screenin g [facility] Start: 11-02-2024 DIABETES SCREEN DIABETES SCREEN [facility] Start: 10-01-2024 DIABETES SCREEN DIABETES SCREEN [facility] Start: 09-29-2024 Annual PCP Team Packing Checker charito Disease Visit Annual PCP Team Chronic Disease Visit [facility] Start: 09-29-2024 BP Controlled (<130/80) BP Controlle d (<130/80) [facility] Start: 09-29-2024 Covid-19 Vaccine () Covid-19 Vaccine () [facility] Comment on above: Postponed from 12/10 (Declined at this time) Start: 09-29-2024 Hepatitis B Vaccine (1 of 3 - 19+ 3-dose series) Hepatitis B Vaccine (1 of 3 - 19+ 3-dose series) [facility] Comment on above: Postponed from 02/08 (Declined at this time) Start: 09-29-2024 Shingrix Vaccine (1 of 2) Mark grix Vaccine (1 of 2) [facility] Comment on above: Postponed from 02/08 (Declined at this time) Start: 06-13-2024 DIABETES SCREEN DIABETES SCREEN [facility] Start: 04-13-2024 End: 04-13-2024 Patient encounter procedure 04/13/2024 3:30 PM EST Office Visit Cardiology [address] [address] Whitney Billingsley, RUSTAM.CONSUMER RELATIONS COMPLAINT CLERK [address] [place] [address] 10 week follow up Cardiology Comment on above: 10 week follow up Start: 04-10-2024 Behavioral Health Screening Behavioral Health Screening [facility] Comment on above: Postponed from 04/11 (Declined at this time) Start: 03-31-2024 End: 06-30-2024 CBC W Auto Differential panel - Blood COMPLETE BLOOD COUNT AND DIFFERENTIAL Lab Routine Essential hypertension Expected: 03/31/2024, Expires: 06/30/2024 [facility] Comment on above: Expected: 03/31/2024 , Expires: 06/30/2024 Start: 03-31-2024 End: 06-30-2024 Comprehensive metabolic 2000 panel - Serum or Plasma COMPREHENSIVE METABOLIC PANEL Lab Routine Essential hypertension Expected: 03/31/2024, Expires: 06/30/2024 [facility] Comment on above: Expected: 03/31/2024 , Expires: 06/30/2024 Start: 03-31-2024 End: 06-30-2024 Hemoglobin A1c in Blood HEMOGLOBIN A1C Lab Routine Hyperglycemia Expected: 03/31/2024, Expires: 06/30/2024 [facility] Comment on above: Expected: 03/31/2024 , Expires: 06/30/2024 Start: 03-31-2024 End: 06-30-2024 Lipid 1996 panel - Serum or Plasma LIPID PANEL BASIC Lab Routine Essential hypertension Expected: 03/31/2024, Expires: 06/30/2024 [facility] Comment on above: Expected: 03/31/2024 , Expires: 06/30/2024 Start: 03-31-2024 End: 06-30-2024 PSA/PROSTATE SPECIFIC ANTIGEN SCREENING PSA/PROSTATE SPECIFIC ANTIGEN SCREENING Lab Routine Screening for prostate cancer Expected: 03/31/2024, Expires: 06/30/2024 [facility] Comment on above: Expected: 03/31/2024 , Expires: 06/30/2024 Start: 03-28-2024 End: 03-28-2024 Patient encounter procedure 03/28/2024 8:40 AM EST Office Visit Family Mimi Rosales [address] [place] [address] Parish Crouch MD [address] [place] [address] 6 month follow up Family Medicine Bobby Comment on above: 6 month follow up Start: 02-24-2024 End: 02-24-2024 Patient encounter procedure Molecular Imaging Comment on above: LESLEY (dyspnea on exer tion) [R06.09] Start: 02-01-2024 End: 02-01-2024 Patient encounter procedure 02/01/2024 3:00 PM EDT Office Visit Cardiology [address] [address] Elvin Vaca DO [address] [place] [address] 1 year f/u Cardiology Comment on above: 1 year f/u Start: 01-19-2024 End: 01-19-2024 Patient encounter procedure 01/19/2024 8:20 AM EDT Office Visit Cardiology [address] [place] [address] JoElvin garg, [address] [place] [address] 1 year follow up Cardiology Comment on above: 1 year follow up Start: 12-11-2023 Covid-19 Vaccine ( season) Covid-19 Vaccine () [facility] Start: 12-11-2023 Covid-19 Vaccine () Covid-19 Vaccine () [facility] Start: 12-11-2023 Influenza vaccination [facility] Start: 09-16-2023 ANNUAL PCP TEAM EGG PACKER CHARITO DISEASE VISIT ANNUAL PCP TEAM CHRONIC DISEASE VISIT [facility] Start: 09-16-2023 BP CONTROLLED (<130/80) BP CONTROLLE D (<130/80) [facility] Start: 09-16-2023 COVID-19 VACCINE (#1) COVID-19 VACCI NE (#1) [facility] Comment on above: Postponed from 08/08 (Declined at this time) Start: 09-16-2023 HEPATITIS B (1 of 3 - 3-dose series) HEPATITIS B (1 of 3 - 3-dose series) [facility] Comment on above: Postponed from 02/08 (Declined at this time) Start: 09-16-2023 Hepatitis B Vaccine (1 of 3 - 3-dose series) Hepatitis B Vaccine (1 of 3 - 3-dose series) [facility] Comment on above: Postponed from 02/08 (Declined at this time) Start: 09-16-2023 SHINGRIX VACCINE (1 of 2) MARK GRIX VACCINE (1 of 2) [facility] Comment on above: Postponed from 02/08 (Declined at this time) Start: 09-16-2023 Urine microalbumin profile [facility] Comment on above: Postponed from 06/08 (Declined at this time) Start: 06-23-2023 ANNUAL PCP TEAM EGG PACKER CHARITO DISEASE VISIT ANNUAL PCP TEAM CHRONIC DISEASE VISIT [facility] Start: 04-26-2023 BP CONTROLLED (<130/80) BP CONTROLLE D (<130/80) [facility] Start: 03-17-2023 ANNUAL PCP TEAM EGG PACKER CHARITO DISEASE VISIT ANNUAL PCP TEAM CHRONIC DISEASE VISIT [facility] Start: 03-17-2023 End: 05-17-2023 CBC W Auto Differential panel - Blood CBC + DIFF Lab Routine Essential hypertension Expected: 03/17/2023, Expires: 05/17/2023 [facility] Work Phone: Comment on above: Expected: 03/17/2023 , Expires: 05/17/2023 Start: 03-17-2023 End: 05-17-2023 Comprehensive metabolic 2000 panel - Serum or Plasma COMP METABOLIC PANEL Lab Routine Essential hypertension Expected: 03/17/2023, Expires: 05/17/2023 [facility] Work Phone: Comment on above: Expected: 03/17/2023 , Expires: 05/17/2023 Start: 03-17-2023 End: 05-17-2023 Hemoglobin A1c in Blood HGB A1C Lab Routine Hyperglycemia Expected: 03/17/2023, Expires: 05/17/2023 [facility] Work Phone: Comment on above: Expected: 03/17/2023 , Expires: 05/17/2023 Start: 03-17-2023 End: 05-17-2023 Lipid 1996 panel - Serum or Plasma LIPID PANEL BASIC Lab Routine Essential hypertension Expected: 03/17/2023, Expires: 05/17/2023 [facility] Work Phone: Comment on above: Expected: 03/17/2023 , Expires: 05/17/2023 Start: 03-17-2023 End: 05-17-2023 Urate [Mass/volume] in Serum or Plasma URIC ACID BLOOD Lab Routine Gouty arthropathy Expected: 03/17/2023, Expires: 05/17/2023 [facility] Work Phone: Comment on above: Expected: 03/17/2023 , Expires: 05/17/2023 Start: 12-10-2022 Influenza vaccination [facility] Start: 10-08-2022 Influenza vaccination INFLUENZA (#1) [facility] Comment on above: Postponed from 12/10 (Declined at this time) Start: 09-28-2022 BP CONTROLLED (<130/80) BP CONTROLLE D (<130/80) [facility] Start: 09-15-2022 Colonoscopy COLONOSCOPY [facility] Start: 09-15-2022 COLORECTAL CANCER SCREENING COLORECTAL CANCER SCREENING [facility] Start: 09-11-2022 ANNUAL PCP TEAM EGG PACKER CHARITO DISEASE VISIT ANNUAL PCP TEAM CHRONIC DISEASE VISIT [facility] Start: 09-11-2022 BP CONTROLLED (<130/80) BP CONTROLLE D (<130/80) [facility] Start: 09-11-2022 COVID-19 VACCINE (#1) COVID-19 VACCI NE (#1) [facility] Comment on above: Postponed from 02/08 (Declined at this time) Postponed from 08/08 (Declined at this time) Start: 09-11-2022 SHINGRIX VACCINE (1 of 2) MARK GRIX VACCINE (1 of 2) [facility] Comment on above: Postponed from 02/08 (Declined at this time) Start: 09-11-2022 Urine microalbumin profile DTA P,TDAP,TD (2 - Td or Tdap) [facility] Comment on above: Postponed from 06/08 (Declined at this time) Start: 08-20-2022 PROSTATE CANCER SCRE ENING DISCUSSION PROSTATE CANCER SCREENING DISCUSSION [facility] Start: 04-11-2022 DEPRESSION ASSESSMENT DEPRESSION ASS ESSMENT [facility] Start: 03-26-2022 ANNUAL PCP TEAM EGG PACKER CHARITO DISEASE VISIT ANNUAL PCP TEAM CHRONIC DISEASE VISIT [facility] Start: 03-13-2022 End: 05-13-2022 Hemoglobin A1c/Hemoglobin.total in Blood HGB A1C Lab Routine Hyperglycemia Expected: 03/13/2022, Expires: 05/13/2022 [facility] Work Phone: Comment on above: Expected: 03/13/2022 , Expires: 05/13/2022 Start: 12-10-2021 Influenza vaccination [facility] Start: 10-07-2021 End: 08-06-2022 Ct heart contrast eval cardiac structure&morph CT PULMONARY VEIN W IVCON Radiology Routine 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 (HCC) assisted current use of anticoagulant Expected: 10/07/2021, Expires: 08/06/2022 [facility] Work Phone: Comment on above: Expected: 10/07/2021 , Expires: 08/06/2022 Start: 10-07-2021 End: 07-07-2022 ECG COMPLETE ECG COMPLETE ECG Routine 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 (HCC) assisted current use of anticoagulant Expected: 10/07/2021, Expires: 07/07/2022 [facility] Work Phone: Comment on above: Expected: 10/07/2021 , Expires: 07/07/2022 Start: 10-07-2021 End: 07-07-2022 Echocardiography ECHO Cardiology Routine 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 Expected: 10/07/2021, Expires: 07/07/2022 [facility] Work Phone: Comment on above: Expected: 10/07/2021 , Expires: 07/07/2022 Start: 10-02-2021 End: 10-02-2022 Basic metabolic 2000 panel - Serum or Plasma BASIC METABOLIC PNL Lab Routine 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 (HCC) Expected: 10/02/2021, Expires: 10/02/2022 [facility] Work Phone: Comment on above: Expected: 10/02/2021 , Expires: 10/02/2022 Start: 10-02-2021 End: 10-02-2022 CBC panel - Blood by Automated count CBC Lab Routine 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 (HCC) Expected: 10/02/2021, Expires: 10/02/2022 [facility] Work Phone: Comment on above: Expected: 10/02/2021 , Expires: 10/02/2022 Start: 10-02-2021 End: 10-02-2022 SARS-CoV-2 (COVID-19) RNA [Presence] in Respiratory specimen by JATIN with probe detection PRE-PROCEDURE & PRE-OPERATIVE COVID Microbiology Routine 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 (HCC) Expected: 10/02/2021, Expires: 10/02/2022 [facility] Work Phone: Comment on above: Expected: 10/02/2021 , Expires: 10/02/2022 Start: 10-02-2021 End: 10-02-2022 TYPE AND SCREEN,30 DAY TYPE AND SCREEN,30 DAY Blood Bank Routine 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 (HCC) Expected: 10/02/2021, Expires: 10/02/2022 [facility] Work Phone: Comment on above: Expected: 10/02/2021 , Expires: 10/02/2022 Start: 09-11-2021 End: 11-11-2021 CBC W Auto Differential panel - Blood CBC + DIFF Lab Routine Essential hypertension Expected: 09/11/2021, Expires: 11/11/2021 [facility] Work Phone: Comment on above: Expected: 09/11/2021 , Expires: 11/11/2021 Start: 09-11-2021 End: 11-11-2021 HEPATIC FUNCTION PNL HEPATIC FUNCTION PNL Lab Routine Mixed hyperlipidemia Expected: 09/11/2021, Expires: 11/11/2021 [facility] Work Phone: Comment on above: Expected: 09/11/2021 , Expires: 11/11/2021 Start: 06-08-2021 Urine microalbumin profile DTA P,TDAP,TD (2 - Td or Tdap) [facility] Start: 04-11-2021 DEPRESSION ASSESSMENT DEPRESSION ASS ESSMENT [facility] Start: 12-10-2020 Influenza vaccination INFLUENZA (#1) [facility] Start: 05-30-2018 Adult depression scr eening assessment DEPRESSION SCREENING [facility] Start: 2017 SHINGRIX VACCINE (1 of 2) MARK GRIX VACCINE (1 of 2) [facility] Start: 07-26-2015 FECAL OCCULT BLOOD FECAL OCCULT BLOO D [facility] Start: 07-26-2015 Screening for malign ant neoplasm of colon Fecal Occult Blood [facility] Start: 02-09-2012 COLOGUARD (FIT-DNA) COLOGUARD (FIT-D NA) [facility] Start: 02-09-[address] COLONOGRAPHY [facility] Start: 02-09-2012 Screening for malign ant neoplasm of colon [facility] Start: 02-09-2012 SIGMOIDOSCOPY SIGMOIDOSCOPY [facility] Start: 1985 Anxiety Screening Anxiety Screening [facility] Start: 1985 BP CONTROLLED (<130/80) BP CONTROLLE D (<130/80) [facility] Start: 1985 Depression Screening Depression Scre lashell [facility] Start: 1985 HEPATITIS C SCREENING HEPATITIS C SC FELICIA [facility] Start: 1985 HIV SCREENING HIV SCREENING [facility] Start: 02-09-1972 COVID-19 VACCINE (#1) COVID-19 VACCI NE (#1) [facility] Start: 02-09-1972 COVID-19 VACCINE (1) COVID-19 VACCIN E (1) [facility] Start: 1967 HEPATITIS B (1 of 3 - 3-dose series) HEPATITIS B (1 of 3 - 3-dose series) [facility] End: 09-24-2022 ECG COMPLETE ECG COMPLETE ECG Routine AF (paroxysmal atrial fibrillation) (HCC) 1 Occurrences starting 09/24/2021 until 09/24/2022 [facility] Work Phone: Comment on above: 1 Occurrences starti ng 09/24/2021 until 09/24/2022 End: 10-07-2022 ECG COMPLETE ECG COMPLETE ECG Routine Persistent atrial fibrillation (HCC) 1 Occurrences starting 10/07/2021 until 10/07/2022 [facility] Work Phone: Comment on above: 1 Occurrences starti ng 10/07/2021 until 10/07/2022 ECG COMPLETE ECG COMPLETE ECG 02/01/2024 3:03 PM EDT [facility] End: 03-02-2025 NM Heart Perfusion W multiple states of exercise NM CARDIAC PERF STRESS/EXERCISE Radiology Routine SUTTON (dyspnea on exertion) Palpitations 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 (HCC) S/P ablation of atrial fibrillation Essential hypertension 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 1 Occurrences starting 02/01/2024 until 03/02/2025 [facility] Work Phone: Comment on above: 1 Occurrences starti ng 02/01/2024 until 03/02/2025 OUTSIDE VENDOR CARDI AC OUTPATIENT EXTENDED RHYTHM RECORDING (WITHOUT TELEMETRY) OUTSIDE VENDOR CARDIAC OUTPATIENT EXTENDED RHYTHM RECORDING (WITHOUT TELEMETRY) Holter Routine 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 (HCC) Ordered: 09/30/2023 [facility] Work Phone: Comment on above: Ordered: 09/30/2023 End: 08-04-2023 Radex spine thoracic 3 views XR THORACIC GENERAL 3V AP/LAT/SWIMMERS Radiology Routine Upper back pain 1 Occurrences starting 07/05/2022 until 08/04/2023 [facility] Work Phone: Comment on above: 1 Occurrences starti ng 07/05/2022 until 08/04/2023 [facility] Immunizations Immunization Date Immunization Notes Care Provider [facility] 09-30-2023 tetanus toxoid, reduced diphtheria toxoid, and acellular pertussis vaccine, adsorbed Parish Crouch MD Work Phone: [facility] 02-22-2018 influenza virus vaccine, unspecified formulation Parish Crouch MD Work Phone: [facility] 06-08-2011 tetanus toxoid, reduced diphtheria toxoid, and acellular pertussis vaccine, adsorbed Darin Marte MD Work Phone: [facility] Work Phone: Payers Date Payer Category Payer Unknown [id number] 2021 Unknown [id number] 2018 Unknown [employer] PPO [id number] 2018-Present [phone] [address] [place] [address] PPO [id number] 2018 Unknown [id number] Social History Date Type Detail Facility Start: 08-22-2018 End: 03-17-2022 Tobacco smoking status NHIS Ex-smoker [facility] History of tobacco use [facility] Start: 06-30-2021 End: 02-01-2024 Alcohol intake Ex-drinker (finding) [facility] Start: 06-30-2021 End: 02-01-2024 Alcohol intake [facility] Start: 05-30-2019 End: 09-14-2022 History SDOH Alcohol Frequency 4 [facility] Start: 05-30-2019 End: 09-14-2022 History SDOH Alcohol Std Drinks 1 [facility] Start: 1965 Sex Assigned At Male [facility] Start: 06-20-2021 End: 11-04-2021 Exposure to SARS-CoV-2 (event) Not sure [facility] Start: 09-22-2021 End: 12-29-2021 Exposure to SARS-CoV-2 (event) Unable to assess [facility] History of tobacco use Current smoker [facility] Start: 08-22-2018 End: 03-17-2022 Tobacco use and exposure User of smokeless tobacco [facility] Start: 09-14-2022 History SDOH Alcohol Std Drinks 2 [facility] Start: 09-14-2022 History SDOH Social Connections Phone 5 [facility] Start: 09-14-2022 History SDOH Social Connections Living 3 [facility] Start: 09-14-2022 History SDOH Physica l Activity DPW 0 [facility] Start: 09-14-2022 History SDOH Physica l Activity MPS 98 [facility] Start: 09-14-2022 End: 02-01-2024 Social connection and isolation panel [facility] Do you belong to any clubs or organizations such as jain groups, unions, fraternal or athletic groups, or school groups? No [facility] Are you now , , , , never or living with a partner? [facility] How often to you hav e a drink containing alcohol? 2-3 time sa week [facility] How many standard dr inks containing alcohol do you have on a typical day? 3 or 4 [facility] How often do you hav e 6 or more drinks on 1 occasion? Less than monthly [facility] How hard is it for y ou to pay for the very basics like food, housing, medical care, and heating Not very hard [facility] Adult Depression Screening Assessment 0 [facility] Work Phone: Do you feel stress - tense, restless, nervous, or anxious, or unable to sleep at night because your mind is troubled all the time - these days [OSQ] Only a little [facility] (I/We) worried wheth er (my/our) food would run out before (I/we) got money to buy more. Never true [facility] Start: 06-26-2021 Gender identity Identifies as male gender (finding) [facility] How many standard dr inks containing alcohol do you have on a typical day? 1 or 2 [facility] How often do you hav e 6 or more drinks on 1 occasion? Never [facility] Clinical Notes 05-09-2020 to 02-01-2024 Elvin Vaca DO - 02/01/2024 3:15 PM EDTTelephone Encounter - Tessie Kay MA - 01/17/2024 9:39 AM EDTTelephone Encounter - Tessie Kay MA - 01/17/2024 9:39 AM EDT Note Date & Type Note Facility 02-01-2024 History of Presen t illness Narrative Images from the original note were not included. [facility] SE[facility] OF [facility] C[facility]IOLOGY [facility] OUTPATIENT VISIT DATE February 01, 2024 PRIMARY CARE PHYSICIAN: Parish Crouch [address] [place] [address] HISTORY OF PRESENT ILLNESS: Mr. Sheppard is a 58 year old male. The patient turns for follow-up secondary history of paroxysmal atrial fibrillation status post recurrent ablation with additional history of hypertension, hyperlipidemia and long-term anticoagulation Eliquis. He notes swelling around his right knee for which we can feel fluid. He notes somewhat increased dyspnea occurring with exertion abating with rest. He continues to have intermittent palpitations without particular onset or offset or other associated symptoms. He denies chest discomfort, orthopnea, paroxysmal nocturnal dyspnea, near-syncope or syncope. 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 He denies GI/ bleeding or melena. EKG performed today demonstrates sinus rhythm at 82 bpm, otherwise normal. PLAN AND RECOMMENDATIONS: The patient overall appears stable without apparent symptoms to suggest significant paroxysms of atrial fibrillation. He has had extensive testing without findings of such but findings of possible symptomatic PVCs. At this time we offered reassurance but we are concerned over some symptoms which may represent angina or cardiac decompensation. We therefore recommend nuclear stress imaging. We also discussed other therapeutic options in regards to his palpitations with watchful waiting, further evaluation with a [employer] mobile. He is also wondering about how he feels in regards to fatigue for which we also discussed various options in regards to his diltiazem. At this point in time he will undergo testing and think about his other therapeutic options. Dietary and lifestyle modification was emphasized to facilitate risk factor reduction and weight loss. We will look forward to reevaluating him after the first of the year regardless. Vitals: BP 118/84 Pulse 82 Ht 182.9 cm (6') Wt 118.3 kg (260 lb 12.9 oz) SpO2 98% BMI 35.37 kg/m Physical Exam Vitals reviewed. Constitutional: General: He is not in acute distress. Appearance: He is well-developed. He is not diaphoretic. HENT: Head: Normocephalic and atraumatic. Right Ear: External ear normal. Left Ear: External ear normal. Nose: Nose normal. Eyes: General: No scleral icterus. Right eye: No discharge. Left eye: No discharge. Pupils: Pupils are equal, round, and reactive to light. Neck: Thyroid: No thyromegaly. Vascular: No JVD. Cardiovascular: Rate and Rhythm: Normal rate and regular rhythm. Heart sounds: No murmur heard. No friction rub. No gallop. Pulmonary: Effort: Pulmonary effort is normal. No respiratory distress. Breath sounds: Normal breath sounds. No wheezing or rales. Abdominal: General: Bowel sounds are normal. Palpations: Abdomen is soft. Musculoskeletal: General: Normal range of motion. Cervical back: Neck supple. Skin: General: Skin is warm and dry. Coloration: Skin is not pale. Neurological: Mental Status: He is alert and oriented to person, place, and time. Cranial Nerves: No cranial nerve deficit. Psychiatric: Mood and Affect: Mood is not anxious or depressed. Behavior: Behavior normal. Thought Content: Thought content normal. Judgment: Judgment normal. Review of Systems Constitutional: Positive for fatigue. Negative for activity change, appetite change and unexpected weight change. HENT: Negative for ear pain and trouble swallowing. Eyes: Negative for pain and visual disturbance. Respiratory: Negative for chest tightness and shortness of breath. Cardiovascular: Positive for chest pain and palpitations. Negative for leg swelling. Gastrointestinal: Negative for abdominal pain and blood in stool. Endocrine: Negative for cold intolerance and heat intolerance. Genitourinary: Negative for dysuria, hematuria and scrotal swelling. Musculoskeletal: Negative for arthralgias and myalgias. Skin: Negative for pallor and rash. Allergic/Immunologic: Negative for immunocompromised state. Neurological: Negative for dizziness, syncope and light-headedness. Hematological: Negative for adenopathy. Does not bruise/bleed easily. Psychiatric/Behavioral: Negative for sleep disturbance. The patient is not nervous/anxious. 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 PAST SURGICAL HISTORY Procedure Laterality Date COLONOSCOPY FLX DX W/COLLJ SPEC WHEN PFRMD 09/15/2017 Colonoscopy PAST SURGICAL HISTORY OF 1992 ORIF left wrist SKIN SURGERY HX skin cancer removal on face Social History Tobacco Use Smoking status: Former Smokeless tobacco: Current Types: Chew Vaping Use Vaping status: Never Used Substance Use Topics Alcohol use: Not Currently Alcohol/week: 5.0 standard drinks of alcohol Types: 5 Cans of Beer (12oz) per week Drug use: No FAMILY HISTORY Problem Relation Age of Onset Diabetes Mother other (Other) Mother TIA Hypertension Father Stroke Father 78 Cancer Paternal Grandmother stomach Stroke Maternal Grandfather No Known Problems Sister Cancer Brother lymphoma Heart Nephew AFIB ALLERGIES Allergen Reactions Seasonal Allergies Unknown Sinus congestion CURRENT MEDICATIONS: allopurinol (ZYLOPRIM) 300 mg tablet Take 1 tablet by mouth once daily. lovastatin (MEVACOR) 10 mg tablet Take 1 tablet by mouth daily at bedtime. For cholesterol. apixaban (ELIQUIS) 5 mg tab(s) Take 1 tablet by mouth two times a day. omeprazole (PRILOSEC) 20 mg capsule Take 1 capsule by mouth once daily. dilTIAZem XR (DILACOR XR) 120 mg 24 hr capsule Take 1 capsule by mouth once daily. cetirizine (ZYRTEC) 10 mg tablet Take 10 mg by mouth once daily. Cholecalciferol, Vitamin D3, 1,000 unit cap Take 1 capsule by mouth once daily. aspirin, enteric coated (ASPIRIN, ENTERIC COATED) 81 mg EC tablet Take 1 tablet by mouth once daily. Magnesium 250 mg tab Take 1 tablet by mouth. Elvin Vaca DO, [facility], [facility] Sap Bw Architect, [facility] Ambulatory Cardiology Sap Bw Architect, [facility] Cardiac Rehabilitation Sap Bw Architect, [facility] Cardiac Rehabilitation Sap Bw Architect, [facility] Sap Bw Architect, [facility] Ambulatory Cardiology Clinical Chief Warden Profressor of Medicine, [facility] Staff Market Asset Protection Manager, Zaida Borrego Department of Cardiovascular Medicine/Heart and Vascular [place], [facility] Please note: This note has been produced using speech recognition software and may contain errors related to that system including josh, punctuation, spelling, words, gender and phrases that may be inappropriate. documented in this encounter [facility] 01-17-2024 Telephone encounter Note Pt notified of results via [employer]. Tessie Kay Ma [facility] 01-17-2024 Miscellaneous Notes Pt notified of results via [employer]. Tessie Kay Ma ----- Message from Eunice Feliciano sent at 01/16/2024 4:58 PM EDT ----- Heart monitor was normal. No atrial fibrillation. Some extra beats here and there but nothing concerning. There was 1 episode of a 5 beats fast run that was Ventricular in nature. documented in this encounter [facility] 01-16-2024 Telephone encounter Note ----- Message from Eunice Feliciano sent at 01/16/2024 4:58 PM EDT ----- Heart monitor was normal. No atrial fibrillation. Some extra beats here and there but nothing concerning. There was 1 episode of a 5 beats fast run that was Ventricular in nature. [facility] 12-30-2023 Telephone encounter Note Prescription Refill Information The patient has been identified by name and date of : Yes Caregiver verified no other encounters exist for this prescription request: Yes Caregiver confirmed with patient/requestor that no other refills are due, in the near future, with this provider at this time: Yes The last office visit in the department: 09/30/2023 Does the patient have a future office visit with this provider/department: Yes Requested Prescriptions Pending Prescriptions Disp Refills allopurinol (ZYLOPRIM) 300 mg tablet 30 tablet 11 Sig: Take 1 tablet by mouth once daily. Diana Blanton December 30, 2023 10:15 AM [facility] 12-30-2023 Miscellaneous Notes Prescription Refill Information The patient has been identified by name and date of : Yes Caregiver verified no other encounters exist for this prescription request: Yes Caregiver confirmed with patient/requestor that no other refills are due, in the near future, with this provider at this time: Yes The last office visit in the department: 09/30/2023 Does the patient have a future office visit with this provider/department: Yes Requested Prescriptions Pending Prescriptions Disp Refills allopurinol (ZYLOPRIM) 300 mg tablet 30 tablet 11 Sig: Take 1 tablet by mouth once daily. Diana Blanton December 30, 2023 10:15 AM documented in this encounter [facility] 12-15-2023 Telephone encounter Note Prescription Refill Information The patient has been identified by name and date of : Yes Caregiver verified no other encounters exist for this prescription request: Yes Caregiver confirmed with patient/requestor that no other refills are due, in the near future, with this provider at this time: Yes The last office visit in the department: 09/30/23 Does the patient have a future office visit with this provider/department: Yes Requested Prescriptions Pending Prescriptions Disp Refills lovastatin (MEVACOR) 10 mg tablet 90 tablet 3 Sig: Take 1 tablet by mouth daily at bedtime. For cholesterol. Luanne Cedeno [facility] December 15, 2023 9:45 AM [facility] 12-15-2023 Miscellaneous Notes Prescription Refill Information The patient has been identified by name and date of : Yes Caregiver verified no other encounters exist for this prescription request: Yes Caregiver confirmed with patient/requestor that no other refills are due, in the near future, with this provider at this time: Yes The last office visit in the department: 09/30/23 Does the patient have a future office visit with this provider/department: Yes Requested Prescriptions Pending Prescriptions Disp Refills lovastatin (MEVACOR) 10 mg tablet 90 tablet 3 Sig: Take 1 tablet by mouth daily at bedtime. For cholesterol. Luanne Cedeno [facility] December 15, 2023 9:45 AM documented in this encounter [facility] 09-30-2023 Note HNO ID: [id number] Author: PARISH CROUCH MD Service: ? Author Type: Physician Type: Progress Notes Filed: 09/30/2023 12:02 Note Text: Patient presents with: 6 Month Exam HPI: Patient presents today for office visit for follow up. GERD: Stopped Omeprazole a few months ago. Doing well. Feels it was giving him increased heartburn. Did have egd. . HLD: Continues on Lovastatin 10 mg daily No myalgias Does not watch his diet Does not exercise GOUT: Takes Allopurinol daily No recent flares A-fib: Continues on Diltiazem and Eliquis Has palpitations. Has not discussed with cardiology. Did tell cardiology at one point. Has been going on for some time. Denies syncope When asked about chest pain he states he thinks it's more indigestion. Doesn't get too often he says. Denies shortness of breath. Follows with Cardiology Next OV 01/19/24 No bleeding issues. Sugars are borderline. Latest Ref Rng 09/28/2023 WBC 3.70 - 11.00 k/uL 6.17 RBC 4.20 - 6.00 m/uL 5.37 Hemoglobin 13.0 - 17.0 g/dL 16.0 Hematocrit 39.0 - 51.0 % 48.4 MCV 80.0 - 100.0 fL 90.1 MCH 26.0 - 34.0 pg 29.8 MCHC 30.5 - 36.0 g/dL 33.1 RDW-CV 11.5 - 15.0 % 12.8 Platelet Count 150 - 400 k/uL 200 MPV 9.0 - 12.7 fL 12.1 Neut% % 53.6 Abs Neut (ANC) 1.45 - 7.50 k/uL 3.31 Lymph% % 33.1 Abs Lymph 1.00 - 4.00 k/uL 2.04 [place]% % 12.3 Abs [place] <0.87 k/uL 0.76 Eosin% % 0.5 Abs Eosin <0.46 k/uL 0.03 Baso% % 0.5 Abs Baso <0.11 k/uL 0.03 Immature Gran % % 0.0 IMMATURE GRANS (ABS) <0.10 k/uL <0.03 NRBC /100 WBC 0.0 Absolute nRBC <0.01 k/uL <0.01 DTYPE Auto Hemoglobin A1C 4.3 - 5.6 % 6.0 (H) Estimated Average Glucose mg/dL 126 Legend: (H) High MEDICATIONS: Current Outpatient Medications Medication Sig apixaban (ELIQUIS) 5 mg tab(s) Take 1 tablet by mouth two times a day. dilTIAZem XR (DILACOR XR) 120 mg 24 hr capsule Take 1 capsule by mouth once daily. allopurinol (ZYLOPRIM) 300 mg tablet Take 1 tablet by mouth once daily. lovastatin (MEVACOR) 10 mg tablet Take 1 tablet by mouth daily at bedtime. For cholesterol. cetirizine (ZYRTEC) 10 mg tablet Take 10 mg by mouth once daily. Cholecalciferol, Vitamin D3, 1,000 unit cap Take 1 capsule by mouth once daily. aspirin, enteric coated (ASPIRIN, ENTERIC COATED) 81 mg EC tablet Take 1 tablet by mouth once daily. Magnesium 250 mg tab Take 1 tablet by mouth. omeprazole (PRILOSEC) 20 mg capsule Take 1 capsule by mouth once daily. (Patient not taking: Reported on 09/30/2023) No current facility-administered medications for this visit. 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 PAST SURGICAL HISTORY Procedure Laterality Date COLONOSCOPY FLX DX W/COLLJ SPEC WHEN PFRMD 09/15/2017 Colonoscopy PAST SURGICAL HISTORY OF 1992 ORIF left wrist SKIN SURGERY HX skin cancer removal on face FAMILY HISTORY Problem Relation Age of Onset Diabetes Mother other (Other) Mother TIA Hypertension Father Stroke Father 78 Cancer Paternal Grandmother stomach Stroke Maternal Grandfather No Known Problems Sister Cancer Brother lymphoma Heart Nephew AFIB Social History Tobacco Use Smoking status: Former Smokeless tobacco: Current Types: Chew Vaping Use Vaping Use: Never used Substance Use Topics Alcohol use: Not Currently Alcohol/week: 5.0 standard drinks of alcohol Types: 5 Cans of Beer (12oz) per week Drug use: No Reviewed current medications, allergies, past medical history, surgical history, family history and social history today. REVIEW OF SYSTEMS All other reviewed and negative other than HPI. HEALTH MAINTENANCE: Reviewed health maintenance issues today and recommended the following in detail. Hepatitis B Vaccine(1 of 3 - 19+ 3-dose series) Never done Shingrix Vaccine(1 of 2) Never done DTaP,Tdap,Td Vaccine(2 - Td or Tdap) due on 06/08/2021 Covid-19 Vaccine(2022- season) Never done Behavioral Health Screening Never done Had discussion with patient regarding risks and benefits of prostate screening. Allowed them to decide if they wished to proceed with screening including MARIELOS and PSA. VITALS: BP 104/72 Pulse 68 Ht 182.9 cm (6') Wt 112 kg (247 lb) SpO2 96% BMI 33.50 kg/m? Last 4 Encounter Wt Readings: Date: Wt: 09/30/2023 112 kg (247 lb) 04/21/2023 119.9 kg (264 lb 6.4 oz) 03/29/2023 116.1 kg (256 lb) 01/18/2023 112.9 kg (249 lb) PHYSICAL EXAMINATION: General appearance: Well appearing, alert, in no acute distress, well-hydrated, well nourished. Skin: Skin color, texture, turgor normal, no suspicious rashes or lesions Head: Normocephalic, (more content not included)... [facility] 09-30-2023 History of Presen t illness Narrative Patient presents with: 6 Month Exam HPI: Patient presents today for office visit for follow up. GERD: Stopped Omeprazole a few months ago. Doing well. Feels it was giving him increased heartburn. Did have egd. . HLD: Continues on Lovastatin 10 mg daily No myalgias Does not watch his diet Does not exercise GOUT: Takes Allopurinol daily No recent flares A-fib: Continues on Diltiazem and Eliquis Has palpitations. Has not discussed with cardiology. Did tell cardiology at one point. Has been going on for some time. Denies syncope When asked about chest pain he states he thinks it's more indigestion. Doesn't get too often he says. Denies shortness of breath. Follows with Cardiology Next OV 01/19/24 No bleeding issues. Sugars are borderline. Latest Ref Rng 09/28/2023 WBC 3.70 - 11.00 k/uL 6.17 RBC 4.20 - 6.00 m/uL 5.37 Hemoglobin 13.0 - 17.0 g/dL 16.0 Hematocrit 39.0 - 51.0 % 48.4 MCV 80.0 - 100.0 fL 90.1 MCH 26.0 - 34.0 pg 29.8 MCHC 30.5 - 36.0 g/dL 33.1 RDW-CV 11.5 - 15.0 % 12.8 Platelet Count 150 - 400 k/uL 200 MPV 9.0 - 12.7 fL 12.1 Neut% % 53.6 Abs Neut (ANC) 1.45 - 7.50 k/uL 3.31 Lymph% % 33.1 Abs Lymph 1.00 - 4.00 k/uL 2.04 [place]% % 12.3 Abs [place] <0.87 k/uL 0.76 Eosin% % 0.5 Abs Eosin <0.46 k/uL 0.03 Baso% % 0.5 Abs Baso <0.11 k/uL 0.03 Immature Gran % % 0.0 IMMATURE GRANS (ABS) <0.10 k/uL <0.03 NRBC /100 WBC 0.0 Absolute nRBC <0.01 k/uL <0.01 DTYPE Auto Hemoglobin A1C 4.3 - 5.6 % 6.0 (H) Estimated Average Glucose mg/dL 126 Legend: (H) High MEDICATIONS: Current Outpatient Medications Medication Sig apixaban (ELIQUIS) 5 mg tab(s) Take 1 tablet by mouth two times a day. dilTIAZem XR (DILACOR XR) 120 mg 24 hr capsule Take 1 capsule by mouth once daily. allopurinol (ZYLOPRIM) 300 mg tablet Take 1 tablet by mouth once daily. lovastatin (MEVACOR) 10 mg tablet Take 1 tablet by mouth daily at bedtime. For cholesterol. cetirizine (ZYRTEC) 10 mg tablet Take 10 mg by mouth once daily. Cholecalciferol, Vitamin D3, 1,000 unit cap Take 1 capsule by mouth once daily. aspirin, enteric coated (ASPIRIN, ENTERIC COATED) 81 mg EC tablet Take 1 tablet by mouth once daily. Magnesium 250 mg tab Take 1 tablet by mouth. omeprazole (PRILOSEC) 20 mg capsule Take 1 capsule by mouth once daily. (Patient not taking: Reported on 09/30/2023) No current facility-administered medications for this visit. 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 PAST SURGICAL HISTORY Procedure Laterality Date COLONOSCOPY FLX DX W/COLLJ SPEC WHEN PFRMD 09/15/2017 Colonoscopy PAST SURGICAL HISTORY OF 1992 ORIF left wrist SKIN SURGERY HX skin cancer removal on face FAMILY HISTORY Problem Relation Age of Onset Diabetes Mother other (Other) Mother TIA Hypertension Father Stroke Father 78 Cancer Paternal Grandmother stomach Stroke Maternal Grandfather No Known Problems Sister Cancer Brother lymphoma Heart Nephew AFIB Social History Tobacco Use Smoking status: Former Smokeless tobacco: Current Types: Chew Vaping Use Vaping Use: Never used Substance Use Topics Alcohol use: Not Currently Alcohol/week: 5.0 standard drinks of alcohol Types: 5 Cans of Beer (12oz) per week Drug use: No Reviewed current medications, allergies, past medical history, surgical history, family history and social history today. REVIEW OF SYSTEMS All other reviewed and negative other than HPI. HEALTH MAINTENANCE: Reviewed health maintenance issues today and recommended the following in detail. Hepatitis B Vaccine(1 of 3 - 19+ 3-dose series) Never done Shingrix Vaccine(1 of 2) Never done DTaP,Tdap,Td Vaccine(2 - Td or Tdap) due on 06/08/2021 Covid-19 Vaccine(2022- season) Never done Behavioral Health Screening Never done Had discussion with patient regarding risks and benefits of prostate screening. Allowed them to decide if they wished to proceed with screening including MARIELOS and PSA. VITALS: BP 104/72 Pulse 68 Ht 182.9 cm (6') Wt 112 kg (247 lb) SpO2 96% BMI 33.50 kg/m Last 4 Encounter Wt Readings: Date: Wt: 09/30/2023 112 kg (247 lb) 04/21/2023 119.9 kg (264 lb 6.4 oz) 03/29/2023 116.1 kg (256 lb) 01/18/2023 112.9 kg (249 lb) PHYSICAL EXAMINATION: General appearance: Well appearing, alert, in no acute distress, well-hydrated, well nourished. Skin: Skin color, texture, turgor normal, no suspicious rashes or lesions Head: Normocephalic, no masses, lesions, tenderness or abnormalities Neck: Supple, no adenopathy; thyroid symmetric, normal size, no bruits Lungs: Lungs clear to auscultation. No wheezing, rhonchi, rales Heart: RRR without murmur, gallop, or rubs. No ectopy Abdomen: Normal abdominal exam, Abdomen soft, non-tender. Bowel sounds normal. No masses, organomegaly Extremities: No deformities, edema, skin discoloration, clubbing or cyanosis. Good capillary refill. Musculoskeletal: No joint swelling, deformity, or tenderness ASSESSMENT/PLAN: 1. 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 (HCC) - ICD9: 427.31, ICD10: I48.0 (primary diagnosis) - continue meds. - check zio - OUTSIDE VENDOR CARDIAC OUTPATIENT EXTENDED RHYTHM RECORDING (WITHOUT TELEMETRY) 2. Mixed hyperlipidemia - ICD9: 272.2, ICD10: E78.2 - Controlled - Continue current medications 3. Essential hypertension - ICD9: 401.9, ICD10: I10 - Controlled - Continue current medications - COMPLETE BLOOD COUNT AND DIFFERENTIAL - COMPREHENSIVE METABOLIC PANEL - LIPID PANEL BASIC 4. S/P ablation of atrial fibrillation - ICD9: V45.89, ICD10: Z98.890, Z86.79 - stable 5. Gastroesophageal reflux disease without esophagitis - ICD9: 530.81, ICD10: K21.9 - asymptomatic. 6. Gouty arthropathy - ICD9: 274.00, ICD10: M10.9 - stable. 7. Hyperglycemia - ICD9: 790.29, ICD10: R73.9 - HEMOGLOBIN A1C 8. Need for vaccination - ICD9: V05.9, ICD10: Z23 - TDAP VACCINE, AGE 7+ YR (ADACEL, BOOSTRIX) Parish Crouch MD documented in this encounter [facility] 04-21-2023 Note HNO ID: [id number] Author: SUZE VEGA PA-C Service: ? Author Type: Physician Chief Warden Type: Progress Notes Filed: 04/21/2023 11:35 Note Text: HISTORY AND PHYSICAL Josh Mccurdy Will 1965 REFERRING PHYSICIAN: Parish Crouch MD CHIEF COMPLAINT: Consult (Colonoscopy consult. ) HPI: The patient is a 58 year old male referred for endoscopy. Josh notes no colon complaints. Patient denies any change in bowel habits, weight changes, blood in stools, black tarry stools or abdominal pain. Denies family history of colon issues. The patient NOTES acid reflux for which he has required proton pump inhibitor long-term to control symptoms. Has not had EGD in the past. Josh has undergone prior endoscopy. Last colonoscopy 09/15/[address] Cook with removal of polyps, repeat colonoscopy recommended in 5 years. Patient's medical history is significant for GERD, atrial fibrillation for which he is maintained on oral anticoagulation, kidney stones, and skin cancer. Patient denies chest pain, shortness of breath or recent hospitalizations. Denies problems with sedation in the past. 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 PAST SURGICAL HISTORY Procedure Laterality Date COLONOSCOPY FLX DX W/COLLJ SPEC WHEN PFRMD 09/15/2017 Colonoscopy PAST SURGICAL HISTORY OF 1992 ORIF left wrist SKIN SURGERY HX skin cancer removal on face Current Outpatient Medications Medication Sig apixaban (ELIQUIS) 5 mg tab(s) Take 1 tablet by mouth two times a day. omeprazole (PRILOSEC) 20 mg capsule Take 1 capsule by mouth once daily. dilTIAZem XR (DILACOR XR) 120 mg 24 hr capsule Take 1 capsule by mouth once daily. allopurinol (ZYLOPRIM) 300 mg tablet Take 1 tablet by mouth once daily. lovastatin (MEVACOR) 10 mg tablet Take 1 tablet by mouth daily at bedtime. For cholesterol. cetirizine (ZYRTEC) 10 mg tablet Take 10 mg by mouth once daily. Cholecalciferol, Vitamin D3, 1,000 unit cap Take 1 capsule by mouth once daily. aspirin, enteric coated (ASPIRIN, ENTERIC COATED) 81 mg EC tablet Take 1 tablet by mouth once daily. Magnesium 250 mg tab Take 1 tablet by mouth. No current facility-administered medications for this visit. ALLERGIES: Seasonal Allergies PERSONAL HISTORY: Social History Tobacco Use Smoking status: Former Smokeless tobacco: Current Types: Chew Vaping Use Vaping Use: Never used Substance Use Topics Alcohol use: Not Currently Alcohol/week: 10.0 standard drinks of alcohol Types: 10 Cans of Beer (12oz) per week Drug use: No FAMILY HISTORY: FAMILY HISTORY Problem Relation Age of Onset Diabetes Mother other (Other) Mother TIA Hypertension Father Stroke Father 78 Cancer Paternal Grandmother stomach Stroke Maternal Grandfather No Known Problems Sister Cancer Brother lymphoma Heart Nephew AFIB REVIEW OF SYMPTOMS: The review of systems data was entered by the nurse and reviewed by nh Nursing Notes: Autumn Medellin RN 04/21/2023 8:09 AM Signed REVIEW OF SYSTEMS: General: The patient denies fatigue, denies weight loss, denies weight gain, denies feeling hot, and denies feelings of cold. Eyes: The patient denies glaucoma, denies eye injury/surgery, does not wear glasses or contacts. Ear/Nose/Throat: The patient denies allergies, NOTES hayfever, denies ear infections, and denies bloody noses. Cardiovascular: The patient denies chest pain, denies heart disease, NOTES high blood pressure,denies cardiac stent, denies prior heart attack, NOTES irregular heart beat, denies high cholesterol, denies poor circulation, denies heart failure, other cardiac issues, denies claudication, denies cold feet, denies peripheral arterial stent. Respiratory: The patient denies tuberculosis, denies pneumonia, denies frequent cough, denies pulmonary embolism, denies shortness of breath, and denies coughing up blood. Gastrointestinal: The patient denies difficulty swallowing, NOTES acid reflux, denies ulcers, denies vomiting, denies jaundice/hepatitis, denies gallbladder problems, denies black or tarry stools, denies hemorrhoids, denies bleeding from rectum, denies diverticulitis, denies constipation, denies diarrhea, denies loss of stool control, and denies hernias. Kidney/Bladder: The patient NOTES kidney stones, denies urine infections, and NOTES bloody urine. Skin: The patient NOTES a history of skin cancer, denies bleeding/changing moles, and denies a history of skin rash. Neurologic: The patient denies a history of epilepsy/convulsions, denies headaches, denies head/spinal injuries, and denies stroke/TIA. Psychiatric: The patient denies psychiatric medications, denies depression, and denies voices, denies substance abus (more content not included)... [facility] 03-29-2023 Note HNO ID: [id number] Author: Parish Crouch MD Service: ? Author Type: Physician Type: Progress Notes Filed: 03/29/2023 4:22 PM Note Text: Patient presents with: Recheck HPI: Patient presents today for office visit for follow up. Discussed prediabetes and diet. Offered metformin. Declines. Will follow. No chest pain or shortness of breath. No dizziness. No bleeding or bruising. Does have some dry nasal passages and some mild bleeding from nose. Discussed saline drops. Still seeing cardiology. No gout issues. Cholesterol is doing well. Has seen Dr Mark. His back is doing better. They did not discuss repeating imaging like an mri given his syrinx. He feels well and declines reimaging for now. Red flags for re-assessment reviewed with patient in detail. Component Latest Ref Rng AND Units 03/24/2023 WBC 3.70 - 11.00 k/uL 6.11 RBC 4.20 - 6.00 m/uL 5.21 Hemoglobin 13.0 - 17.0 g/dL 15.6 Hematocrit 39.0 - 51.0 % 47.7 MCV 80.0 - 100.0 fL 91.6 MCH 26.0 - 34.0 pg 29.9 MCHC 30.5 - 36.0 g/dL 32.7 RDW-CV 11.5 - 15.0 % 13.0 Platelet Count 150 - 400 k/uL 214 MPV 9.0 - 12.7 fL 12.3 Neut% % 52.8 Abs Neut (ANC) 1.45 - 7.50 k/uL 3.23 Lymph% % 29.5 Abs Lymph 1.00 - 4.00 k/uL 1.80 [place]% % 15.1 Abs [place] <0.87 k/uL 0.92 (H) Eosin% % 1.6 Abs Eosin <0.46 k/uL 0.10 Baso% % 0.8 Abs Baso <0.11 k/uL 0.05 Immature Gran % % 0.2 IMMATURE GRANS (ABS) <0.10 k/uL <0.03 NRBC /100 WBC 0.0 Absolute nRBC <0.01 k/uL <0.01 DTYPE Auto Protein, Total 6.3 - 8.0 g/dL 6.8 Albumin 3.9 - 4.9 g/dL 4.1 Calcium 8.5 - 10.2 mg/dL 9.6 Bilirubin, Total 0.2 - 1.3 mg/dL 0.6 Alkaline Phosphatase 38 - 113 U/L 72 AST 14 - 40 U/L 33 ALT 10 - 54 U/L 41 Glucose 74 - 99 mg/dL 119 (H) BUN 9 - 24 mg/dL 22 Creatinine 0.73 - 1.22 mg/dL 1.00 Sodium 136 - 144 mmol/L 139 Potassium 3.7 - 5.1 mmol/L 4.3 Chloride 97 - 105 mmol/L 105 CO2 22 - 30 mmol/L 25 Anion Gap 9 - 18 mmol/L 9 eGFR >=60 mL/min/1.73mA? 88 Cholesterol, Total <200 mg/dL 169 Triglyceride <150 mg/dL 71 HDL Cholesterol >39 mg/dL 60 Non HDL Cholesterol <130 mg/dL 109 Fasting Time hrs 13 VLDL Cholesterol <30 mg/dL 14 TC:HDL Ratio <5.10 2.82 LDL Cholesterol <100 mg/dL 95 LDL:HDL Ratio <2.54 1.58 Hemoglobin A1C 4.3 - 5.6 % 6.1 (H) Estimated Average Glucose mg/dL 128 Uric Acid 4.0 - 8.1 mg/dL 4.7 MEDICATIONS: Current Outpatient Medications Medication Sig dilTIAZem XR (DILACOR XR) 120 mg 24 hr capsule Take 1 capsule by mouth once daily. allopurinol (ZYLOPRIM) 300 mg tablet Take 1 tablet by mouth once daily. lovastatin (MEVACOR) 10 mg tablet Take 1 tablet by mouth daily at bedtime. For cholesterol. apixaban (ELIQUIS) 5 mg tab(s) Take 1 tablet by mouth twice daily. omeprazole (PRILOSEC) 20 mg capsule Take 1 capsule by mouth once daily. cetirizine (ZYRTEC) 10 mg tablet Take 10 mg by mouth once daily. Cholecalciferol, Vitamin D3, 1,000 unit cap Take 1 capsule by mouth once daily. aspirin, enteric coated (ASPIRIN, ENTERIC COATED) 81 mg EC tablet Take 1 tablet by mouth once daily. Magnesium 250 mg tab Take 1 tablet by mouth. No current facility-administered medications for this visit. ALLERGIES: ALLERGIES Allergen Reactions Seasonal Allergies Unknown Sinus congestion PAST MEDICAL HISTORY Diagnosis Date Arrhythmia Atrial fibrillation (HCC) HTN (hypertension) Syringomyelia and syringobulbia (HCC) decreased sensation in upper left arm and hand. PAST SURGICAL HISTORY Procedure Laterality Date COLONOSCOPY FLX DX W/COLLJ SPEC WHEN PFRMD 09/15/2017 Colonoscopy PAST SURGICAL HISTORY OF 1992 ORIF left wrist SKIN SURGERY HX skin cancer removal on face FAMILY HISTORY Problem Relation Age of Onset Diabetes Mother other (Other) Mother TIA Hypertension Father Stroke Father 78 Cancer Paternal Grandmother stomach Stroke Maternal Grandfather No Known Problems Sister Cancer Brother lymphoma Heart Nephew AFIB Social History Tobacco Use Smoking status: Former Smokeless tobacco: Current Types: Chew Vaping Use Vaping Use: Never used Substance Use Topics Alcohol use: Not Currently Alcohol/week: 10.0 standard drinks of alcohol Types: 10 Cans of Beer (12oz) per week Drug use: No Reviewed current medications, allergies, past medical history, surgical history, family history and social history today. REVIEW OF SYSTEMS Notes his lower lip is sensitive . No open sores. Wonders if he might have burned it for a month and a half. Seems to be improving. Exam is benign. Red flags for re-assessment reviewed with patient in detail. All other reviewed and negative other than HPI. HEALTH MAINTENANCE: Reviewed health maintenance issues today and recommended the following in detail. BP Controlled (<130/80) Never done Colorectal Cancer Screening -had polyps in the past. Due for recheck. VITALS: BP 126/90 Pulse 76 Resp 16 Wt 116.1 kg (256 lb) SpO2 98% BM (more content not included)... [facility] 02-11-2023 Miscellaneous Notes DEEPTHI 09/15/22 NOV 03/17/23 Patient has been identified by name and date of : Yes Requested Prescriptions Pending Prescriptions Disp Refills dilTIAZem XR (DILACOR XR) 120 mg 24 hr capsule 90 capsule 3 Sig: Take 1 capsule by mouth once daily. RX INSTRUCTIONS: Patient aware RX will be sent to pharmacy. No need to notify patient. Elda Tran documented in this encounter [facility] 2023 Miscellaneous Notes Second attempt: called patient and left voicemail for patient to all back and schedule appointment with Dr Marte 05/30 4:30 PM (ok to add on) First attempt: called patient and left voicemail for patient to call back and schedule appointment Images from the original note were not included. Marie Galindo, RN P Camila Shukla [facility] Clerical Pool 05/30 at 430? Looks like 04/18/ is now booked ----- Message ----- From: Darin Marte MD Sent: 01/26/2023 11:06 AM EDT To: Elvin Vaca, DO; Marie Galindo RN; * ok to overbook at 4:30 04-18-[address] Estuardo MD: Thank you for the opportunity to participate in the care of your patient, Josh Sheppard on 01/18/2023. My assessment and plan are attached below. Good morning!. I saw this patient today and he appears to be having palpitations with possible symptomatic PVCs. I discussed with him obtaining a [employer]ia mobile device to try to help evaluate dysrhythmia as these possibly to be rare for monitoring. I have made no additions or changes. Would you like to see him possibly sooner or have him seen by your nurse practitioner? I made him aware that I would reach out to you to see what your thoughts would be. Thank you so much, Shan documented in this encounter [facility] 01-19-2023 Miscellaneous Notes DEEPTHI 09/15/22 NOV 03/29/23 Patient has been identified by name and date of : Yes Last office visit in this department: Visit date not found RX INSTRUCTIONS: Patient aware RX will be sent to pharmacy. No need to notify patient. Patient phones requesting refills as follows: Requested Prescriptions Pending Prescriptions Disp Refills allopurinol (ZYLOPRIM) 300 mg tablet 30 tablet 11 Sig: Take 1 tablet by mouth once daily. Please review and advise. Karol Pruitt documented in this encounter [facility] 01-18-2023 Note HNO ID: [id number] Author: Elvin Vaca, DO Service: ? Author Type: Physician Type: Progress Notes Filed: 01/18/2023 10:04 AM Note Text: [facility] OUTPATIENT VISIT DATE January 18, 2023 PRIMARY CARE PHYSICIAN: Parish Crouch [address] [place] [address] HISTORY OF PRESENT ILLNESS: Mr. Sheppard is a 57 year old male. The patient returns for follow-up second history of paroxysmal atrial fibrillation and atrial flutter status post redo ablation. He has additional history of hypertension and hyperlipidemia. He remains on long-term anticoagulation with Eliquis. He recently had a flare of palpitations described as skipping beats for which she believes he may have had symptomatic PVCs. He was seen prior to such in the emergency room where PVCs were seen as well. This was outside of the [facility] system. He denies chest discomfort, dyspnea on exertion, orthopnea, paroxysmal nocturnal dyspnea, near-syncope or syncope. He denies GI/ bleeding or melena. 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 PLAN AND RECOMMENDATIONS: The patient appears stable without overt symptoms of suggest angina, cardiac decompensation or paroxysms of his atrial fibrillation. He however did have palpitations for which he may have have symptomatic PVCs. They appear to be too rare to consider telemetry monitoring. At this point time we will reach out to electrophysiology for their thoughts. In the interim we discussed potentially obtaining technology such as an [employer] watch or a [employer] mobile device so that the patient can evaluate dysrhythmia associated with his symptoms. We have made no additions or changes today. Dietary and lifestyle modification was reemphasized to facilitate risk factor reduction. We will look forward to reevaluate him from a general cardiology standpoint in 1 years time. Vitals: BP 120/88 Pulse 73 Ht 182.9 cm (6') Wt 112.9 kg (249 lb) SpO2 97% BMI 33.77 kg/m? Physical Exam Vitals reviewed. Constitutional: General: He is not in acute distress. Appearance: He is well-developed. He is not diaphoretic. HENT: Head: Normocephalic and atraumatic. Right Ear: External ear normal. Left Ear: External ear normal. Nose: Nose normal. Eyes: General: No scleral icterus. Right eye: No discharge. Left eye: No discharge. Pupils: Pupils are equal, round, and reactive to light. Neck: Thyroid: No thyromegaly. Vascular: No JVD. Cardiovascular: Rate and Rhythm: Normal rate and regular rhythm. Heart sounds: No murmur heard. No friction rub. No gallop. Pulmonary: Effort: Pulmonary effort is normal. No respiratory distress. Breath sounds: Normal breath sounds. No wheezing or rales. Abdominal: General: Bowel sounds are normal. Palpations: Abdomen is soft. Musculoskeletal: General: Normal range of motion. Cervical back: Neck supple. Skin: General: Skin is warm and dry. Coloration: Skin is not pale. Neurological: Mental Status: He is alert and oriented to person, place, and time. Cranial Nerves: No cranial nerve deficit. Psychiatric: Mood and Affect: Mood is not anxious or depressed. Behavior: Behavior normal. Thought Content: Thought content normal. Judgment: Judgment normal. Review of Systems Constitutional: Negative for activity change, appetite change, fatigue and unexpected weight change. HENT: Negative for ear pain and trouble swallowing. Eyes: Negative for pain and visual disturbance. Respiratory: Negative for chest tightness and shortness of breath. Cardiovascular: Positive for palpitations. Negative for chest pain and leg swelling. Gastrointestinal: Negative for abdominal pain and blood in stool. Endocrine: Negative for cold intolerance and heat intolerance. Genitourinary: Negative for dysuria, hematuria and scrotal swelling. Musculoskeletal: Negative for arthralgias and myalgias. Skin: Negative for pallor and rash. Allergic/Immunologic: Negative for immunocompromised state. Neurological: Negative for dizziness, syncope and light-headedness. Hematological: Negative for adenopathy. Does not bruise/bleed easily. Psychiatric/Behavioral: Negative for sleep disturbance. The patient is not nervous/anxious. 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 PAST SURGICAL HISTORY Procedure Laterality Date COLONOSCOPY FLX DX W/COLLJ SPEC WHEN PFRMD 09/15/2017 Colonoscopy PAST SURGICAL HISTORY OF 1992 ORIF left wrist SKIN SURGERY HX skin cancer removal on face Social History Tobacco Use Smoking status: Former Smokeless tobacco: Current Types: Chew Vaping Use Vaping Use: Never used Substance Use Topics Alcohol use: Not Currently Alc (more content not included)... [facility] 12-15-2022 Miscellaneous Notes Patient's stated he has been out of this medication for 3 days. Wants to know if rx can be sent casey. Patient has been identified by name and date of : Yes Requested Prescriptions Pending Prescriptions Disp Refills lovastatin (MEVACOR) 10 mg tablet 90 tablet 3 Sig: Take 1 tablet by mouth daily at bedtime. For cholesterol. RX INSTRUCTIONS: Patient aware RX will be sent to pharmacy. No need to notify patient. Dia Pruitt documented in this encounter [facility] 09-15-2022 History of Presen t illness Narrative Patient presents with: 6 Month Exam HPI: Patient presents today for office visit for follow up. Had another ablation in October 2021 after June ablation didn't take. Followed by Cardiology. Last OV 04/26/22 Currently no new chest pain of shortness of breath Intermittent PVC's GERD: Recently started back taking Omeprazole with relief. No symptoms. Feels good. HLD: No myalgias. No bleeding or bruising issues. No gout issues. Needs Colonoscopy. Previously saw Dr. Cook Saw Pain mgt. PT order placed. Did not schedule. Back is better. They had talked about therapy in case repeat imaging. Doing better. Component Latest Ref Rng & Units 06/24/2022 WBC 3.70 - 11.00 k/uL 5.09 RBC 4.20 - 6.00 m/uL 5.36 Hemoglobin 13.0 - 17.0 g/dL 16.1 Hematocrit 39.0 - 51.0 % 48.2 MCV 80.0 - 100.0 fL 89.9 MCH 26.0 - 34.0 pg 30.0 MCHC 30.5 - 36.0 g/dL 33.4 RDW-CV 11.5 - 15.0 % 13.1 Platelet Count 150 - 400 k/uL 209 MPV 9.0 - 12.7 fL 12.1 Neut% % 54.6 Abs Neut (ANC) 1.45 - 7.50 k/uL 2.78 Lymph% % 31.0 Abs Lymph 1.00 - 4.00 k/uL 1.58 [place]% % 12.2 Abs [place] <0.87 k/uL 0.62 Eosin% % 1.2 Abs Eosin <0.46 k/uL 0.06 Baso% % 0.8 Abs Baso <0.11 k/uL 0.04 Immature Gran % % 0.2 IMMATURE GRANS (ABS) <0.10 k/uL <0.03 NRBC /100 WBC 0.0 Absolute nRBC <0.01 k/uL <0.01 DTYPE Auto Protein, Total 6.3 - 8.0 g/dL 7.1 Albumin 3.9 - 4.9 g/dL 4.3 Calcium 8.5 - 10.2 mg/dL 9.5 Bilirubin, Total 0.2 - 1.3 mg/dL 0.7 Alkaline Phosphatase 38 - 113 U/L 73 AST 14 - 40 U/L 29 ALT 10 - 54 U/L 40 Glucose 74 - 99 mg/dL 107 (H) BUN 9 - 24 mg/dL 19 Creatinine 0.73 - 1.22 mg/dL 0.95 Sodium 136 - 144 mmol/L 137 Potassium 3.7 - 5.1 mmol/L 4.4 Chloride 97 - 105 mmol/L 101 CO2 22 - 30 mmol/L 26 Anion Gap 9 - 18 mmol/L 10 eGFR >=60 mL/min/1.73m 95 Cholesterol, Total <200 mg/dL 220 (H) Triglyceride <150 mg/dL 97 HDL Cholesterol >39 mg/dL 60 Non HDL Cholesterol <130 mg/dL 160 (H) Fasting Time hrs 13 VLDL Cholesterol <30 mg/dL 19 TC:HDL Ratio <5.10 3.67 LDL Cholesterol <100 mg/dL 141 (H) LDL:HDL Ratio <2.54 2.35 HIV 12 Combo (Ag/Ab) Nonreactive Nonreactive HIV 1/2 Ab HIV Interpretation Hemoglobin A1C 4.3 - 5.6 % 5.8 (H) Estimated Average Glucose mg/dL 120 Uric Acid 4.0 - 8.1 mg/dL 4.8 Hep C Antibody IA Negative Negative MEDICATIONS: Current Outpatient Medications Medication Sig cyclobenzaprine (FLEXERIL) 10 mg tablet Take 1 tablet by mouth three times daily as needed. apixaban (ELIQUIS) 5 mg tab(s) Take 1 tablet by mouth twice daily. omeprazole (PRILOSEC) 20 mg capsule Take 1 capsule by mouth once daily. dilTIAZem XR (DILACOR XR) 120 mg 24 hr capsule Take 1 capsule by mouth once daily. allopurinol (ZYLOPRIM) 300 mg tablet Take 1 tablet by mouth once daily. lovastatin (MEVACOR) 10 mg tablet Take 1 tablet by mouth daily at bedtime. For cholesterol. cetirizine (ZYRTEC) 10 mg tablet Take 10 mg by mouth once daily. Cholecalciferol, Vitamin D3, 1,000 unit cap Take 1 capsule by mouth once daily. aspirin, enteric coated (ASPIRIN, ENTERIC COATED) 81 mg EC tablet Take 1 tablet by mouth once daily. Magnesium 250 mg tab Take 1 tablet by mouth. Current Facility-Administered Medications Medication Dose Route Frequency perflutren lipid microspheres 1.3 mL in NaCl (PF) 0.9% 10 mL injection (DEFINITY) INTRAVENOUS DIRECTED PRN sodium chloride 0.9 % (flush) 10 mL (BD POSIFLUSH) 10 mL INTRAVENOUS DIRECTED PRN perflutren lipid microspheres 1.3 mL in NaCl (PF) 0.9% 10 mL injection (DEFINITY) INTRAVENOUS DIRECTED PRN sodium chloride 0.9 % (flush) 10 mL (BD POSIFLUSH) 10 mL INTRAVENOUS DIRECTED PRN ALLERGIES: ALLERGIES Allergen Reactions Seasonal Allergies Unknown Sinus congestion PAST MEDICAL HISTORY Diagnosis Date Arrhythmia Atrial fibrillation (HCC) HTN (hypertension) Syringomyelia and syringobulbia (HCC) decreased sensation in upper left arm and hand. PAST SURGICAL HISTORY Procedure Laterality Date COLONOSCOPY FLX DX W/COLLJ SPEC WHEN PFRMD 09/15/2017 Colonoscopy PAST SURGICAL HISTORY OF 1992 ORIF left wrist SKIN SURGERY HX skin cancer removal on face FAMILY HISTORY Problem Relation Age of Onset Diabetes Mother other (Other) Mother TIA Hypertension Father Stroke Father 78 Cancer Paternal Grandmother stomach Stroke Maternal Grandfather No Known Problems Sister Cancer Brother lymphoma Heart Nephew AFIB Social History Tobacco Use Smoking status: Former Smokeless tobacco: Current Types: Chew Vaping Use Vaping Use: Never used Substance Use Topics Alcohol use: Not Currently Alcohol/week: 25.0 standard drinks Types: 10 Cans of Beer (12oz) per week Drug use: No Reviewed current medications, allergies, past medical history, surgical history, family history and social history today. REVIEW OF SYSTEMS All other reviewed and negative other than HPI. HEALTH MAINTENANCE: Reviewed health maintenance issues today and recommended the following in detail. HEPATITIS B(1 of 3 - 3-dose series) Never done COVID-19 VACCINE(1) Never done BP CONTROLLED (<130/80) Never done SHINGRIX VACCINE(1 of 2) Never done DTAP,TDAP,TD(2 - Td or Tdap) due on 06/08/2021 DEPRESSION ASSESSMENT due on 04/11/2022 PROSTATE CANCER SCREENING DISCUSSION- Had discussion with patient regarding risks and benefits of prostate screening. Allowed them to decide if they wished to proceed with screening including MARIELOS and PSA. COLORECTAL CANCER SCREENING due on 09/15/2022 VITALS: BP 116/64 Pulse 79 Ht 182.9 cm (6') Wt 113 kg (249 lb 3.2 oz) SpO2 95% BMI 33.80 kg/m Last 4 Encounter Wt Readings: Date: Wt: 07/26/2022 116.1 kg (256 lb) 06/29/2022 117.2 kg (258 lb 6.4 oz) 06/22/2022 117.9 kg (260 lb) 04/26/2022 115.5 kg (254 lb 9.6 oz) PHYSICAL EXAMINATION: General appearance: Well appearing, alert, in no acute distress, well-hydrated, well nourished. Skin: Skin color, texture, turgor normal, no suspicious rashes or lesions Head: Normocephalic, no masses, lesions, tenderness or abnormalities Neck: Supple, no adenopathy; thyroid symmetric, normal size, no bruits Lungs: Lungs clear to auscultation. No wheezing, rhonchi, rales Heart: RRR without murmur, gallop, or rubs. No ectopy Abdomen: Normal abdominal exam, Abdomen soft, non-tender. Bowel sounds normal. No masses, organomegaly Extremities: No deformities, edema, skin discoloration, clubbing or cyanosis. Good capillary refill. Musculoskeletal: No joint swelling, deformity, or tenderness ASSESSMENT/PLAN: 1. 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 (HCC) - ICD9: 427.31, ICD10: I48.0 (primary diagnosis) - continue current meds. Call if any issues. 2. Screening for colon cancer - ICD9: V76.51, ICD10: Z12.11 - CONSULT TO GENERAL SURGERY 4. Mixed hyperlipidemia - ICD9: 272.2, ICD10: E78.2 - will follow in six months. Back on labs. - COMP METABOLIC PANEL - LIPID PANEL BASIC 5. Syringomyelia and syringobulbia (HCC) - ICD9: 336.0, ICD10: G95.0 - per pain management. 6. Essential hypertension - ICD9: 401.9, ICD10: I10 - Controlled - Continue current medications - CBC + DIFF - COMP METABOLIC PANEL - LIPID PANEL BASIC 7. S/P ablation of atrial fibrillation - ICD9: V45.89, ICD10: Z98.890, Z86.79 - stable 8. Hyperglycemia - ICD9: 790.29, ICD10: R73.9 - doing ewll. - HGB A1C 9. Gouty arthropathy - ICD9: 274.00, ICD10: M10.9 - URIC ACID BLOOD Parish Crouch MD RTO in six months or prn documented in this encounter [facility] 07-26-2022 History of Presen t illness Narrative [facility] Date: July 26, 2022 - 7:56 AM Josh Sheppard is seen in consultation requested by Dr. Parish Crouch for an opinion regarding thoracic pain. My final recommendations will be communicated back to the requesting physician by way of shared medical record or via US mail. Chief Complaint: thoracic back pain SUBJECTIVE: Josh Sheppard, is a 57 year old male who presents with thoracic back pain. The pain started years ago, with no known injury or trauma. The pain onset was grdual. The patient states that the current pain is intermittent and persistent. His pain is located in the left and middle midthoracic region and does not radiate.. // The pain is described as aching and soreness. The pain intensity is rated 3. The pain is exacerbated by pain is constant and no change in pain symptoms with position or activity and relieved by application of heat, application of cold, massage, and really the heat and cold helped with muscle tightness. Symptoms interfere with pain progresses during the day but can't pin point aggravating factors.. 90% pain in spine vs 10% (radiating) pain in the extremity. Prior pain treatment has included medications - muscle relaxants with some relief. Reports having a block years ago. He had relief from the following interventions: None. ALLERGIES Allergen Reactions Seasonal Allergies Unknown Sinus congestion Current Medications: Pain medications reviewed and reconciled in the medication list: Yes. Current Outpatient Medications Medication Sig cyclobenzaprine (FLEXERIL) 10 mg tablet Take 1 tablet by mouth three times daily as needed. apixaban (ELIQUIS) 5 mg tab(s) Take 1 tablet by mouth twice daily. omeprazole (PRILOSEC) 20 mg capsule Take 1 capsule by mouth once daily. dilTIAZem XR (DILACOR XR) 120 mg 24 hr capsule Take 1 capsule by mouth once daily. allopurinol (ZYLOPRIM) 300 mg tablet Take 1 tablet by mouth once daily. lovastatin (MEVACOR) 10 mg tablet Take 1 tablet by mouth daily at bedtime. For cholesterol. cetirizine (ZYRTEC) 10 mg tablet Take 10 mg by mouth once daily. Cholecalciferol, Vitamin D3, 1,000 unit cap Take 1 capsule by mouth once daily. aspirin, enteric coated (ASPIRIN, ENTERIC COATED) 81 mg EC tablet Take 1 tablet by mouth once daily. Magnesium 250 mg tab Take 1 tablet by mouth. Current Facility-Administered Medications Medication Dose Route Frequency perflutren lipid microspheres 1.3 mL in NaCl (PF) 0.9% 10 mL injection (DEFINITY) INTRAVENOUS DIRECTED PRN sodium chloride 0.9 % (flush) 10 mL (BD POSIFLUSH) 10 mL INTRAVENOUS DIRECTED PRN perflutren lipid microspheres 1.3 mL in NaCl (PF) 0.9% 10 mL injection (DEFINITY) INTRAVENOUS DIRECTED PRN sodium chloride 0.9 % (flush) 10 mL (BD POSIFLUSH) 10 mL INTRAVENOUS DIRECTED PRN PAST MEDICAL HISTORY Diagnosis Date Arrhythmia Atrial fibrillation (HCC) HTN (hypertension) Syringomyelia and syringobulbia (HCC) decreased sensation in upper left arm and hand. PAST SURGICAL HISTORY Procedure Laterality Date COLONOSCOPY FLX DX W/COLLJ SPEC WHEN PFRMD 09/15/2017 Colonoscopy PAST SURGICAL HISTORY OF 1992 ORIF left wrist SKIN SURGERY HX skin cancer removal on face FAMILY HISTORY Problem Relation Age of Onset Diabetes Mother other (Other) Mother TIA Hypertension Father Stroke Father 78 Cancer Paternal Grandmother stomach Stroke Maternal Grandfather No Known Problems Sister Cancer Brother lymphoma Heart Nephew AFIB Social History: Alcohol Use: Not Currently Tobacco Use: Types: Chew Drug Use: No Employer And Job Title: None on file Years Of Education Completed: Not specified Marital Status: REVIEW OF SYSTEMS: Constitutional: (-) Fever (-) Night Sweats (-) Weight Gain (-) Weight Loss (-) Fatigue Cardiovascular: (-) Chest Pain (-) Palpitations (-) Lightheadedness (-) Swelling of Ankles (-) Hx Heart Surgery Respiratory: (-) Shortness of Breath (-) Cough (-) Wheezing (+) Snoring Gastrointestinal: (-) Incontinence (-) Abdominal Pain (-) Diarrhea (-) Constipation (-) Nausea/Vomiting (-) Heart Burn Endocrine: (-) Thyroid Disorder (-) Diabetes Hematologic: (-) Prolonged Bleeding (+) Easy Bruising Genitourinary: (-) Incontinence (-) Frequency (-) Urinary Urgency Skin: (-) Rashes (-) Itching (-) Other Lesions Neurologic: (+) Headache (-) Double Vision (-) Confusion (-) Paralysis (-) Vertigo (-) Syncope Psychiatric: (-) Depression (-) Anxiety (-) Delusions (-) Hallucinations (-) Suicidal Thoughts OARRS Report reviewed: Yes Narcotic Agreement reviewed and signed?: N/A Baseline Urine Toxicology obtained: N/A Urine Panel: No results found for: UQCANN, UQBNZL, TCN7USI, UQAMPH, UQMAMP, UQBUPRE, UQNORBUP, UQMTHD, UQEDDP, UQTRAM, UQDTRM, UQFNTL, UQNFTL, UQCODE, UQMORP, UQDCDN, UQHCOD, UQOXYC, UQHMOR, UQOXYM, UQCREA, UQPH, UQSPGR, UQOXID, UQSPQ The pain panel was N/A OBJECTIVE: Performed in conjunction with observation. The patient was alert and oriented x3. The patient was in no acute distress. Lungs: Clear, negative for dyspnea or distress. CVR: Negative for SOB or peripheral edema. Neck: Supple. The range of motion was intact. Negative focal tenderness Cervical facet loading: Negative Thoracic: Left paravertebral tenderness in the mid thoracic region. Negative for soft tissue mass or abnormality. Negative for facet loading. Back: Range of motion of the trunk was intact. Right lumbosacral tenderness. SLR: Negative Facet Loading: Negative with axial loading and extension. Extremities: no reported edema or erythema. Motor: Negative focal deficits Sensory: Intact to light touch and sharp throughout the upper and lower extremities. Gait: Within normal limits Medical record and diagnostic tests reviewed for today's visit: The [facility] EMR was reviewed during the visit IMAGING STUDIES: No new imaging studies were reviewed during this office visit. ASSESSMENT: (M79.18) Myofascial pain syndrome of thoracic spine (primary encounter diagnosis) (M51.34) DDD (degenerative disc disease), thoracic (G95.0) Syringomyelia and syringobulbia (HCC) Discussion: A discussion was entertained regarding multicomponent back pain source. Discussed conservative options and focus on improvement of function and the concerns of ongoing chronic pain. Discussed the rationale behind interventional approach and how it can facilitate improvement of pain but also diagnostic information that procedures provide. assisted use of any opioid pain medication is discouraged in chronic benign pain. PLAN: 1. Imaging studies reviewed with the patient. Negative acute findings. Recommend physical therapy. 2. No interventional procedures indicated 3. No new medication was prescribed. 4. Counseled patient regarding the importance of activity modification and exercise. 5. Follow up: Next 8 weeks or as needed basis. The above plan and management options were discussed with patient. The patient is in agreement with the above and verbalized understanding. I have discussed and confirmed the above treatment plan with the patient and I have reviewed the nurses notes and I am aware of the family/social history. I have confirmed ROS findings. Donnell Mark MD 1. This document has been created with the use of voice recognition technology. It may contain inaccuracies: (e.g. misspellings, inaccurate syntax or word sense) that have escaped review. 2. The nurse practitioner, nursing staff and medical assistants are a major part of YOUR TREATMENT TEAM and will be handling your phone calls and inquiries, if any. Unless explicitly told otherwise at the time of your office visit, your study results and ensuing treatment plans will be discussed during your follow-up appointment. If you do not have a follow-up appointment and wish to discuss any issues, please set up an appointment. 3. It is my practice to not fill disability or any other insurance-related forms/documentation. All of the office notes, study results, and other pertinent documentation generated as part of your evaluation will be available to you and to your Primary Care Physician (PCP). Use of this material to complete such forms will be at the discretion of your PCP/referring physician. July 26, 2022 cc: Parish Crouch [address] [facility] [place] [address] Results of consultation to be transmitted via electronic medical record for those providers who practice within [facility] or with access to [facility] via [facility], or via letter. documented in this encounter [facility] 07-16-2022 Miscellaneous Notes Patient returned call and went over results, notes from Dr Crouch with understanding. Assisted with transfer to medical scheduler to get Spine Med appt set up. Left message for patient to return call. [employer] Message sent Emely John Ma Left message for pt to return call to office. Rodo Rios LPN Called and left a voicemail for the Patient to call back and ask for a nurse to receive the providers message. Suze Williamson RN Xray shows degenerative changes in the thoracic spine. Given his continued pain and hx of syrinx, lets refer to spine med documented in this encounter [facility] 07-10-2022 History of Presen t illness Narrative Radiology Service Progress Note PATIENT NAME: Josh Sheppard DATE OF SERVICE: July 10, 2022 TIME: 11:05 AM PATIENT IDENTITY VERIFICATION COMPLETED USING TWO (2) IDENTIFIERS: Name and Date of confirmed by patient verbally. FALL SCREENING: Has the patient had 2 falls in the last year or 1 fall with injury or currently using an Ambulatory Assistive Device (Walker, Cane, Wheelchair, Crutches, etc.)? No PATIENT GENDER DATA: Male PATIENT RELEVANT IMPLANT DATA REVIEWED: Yes RADIOLOGY DEPARTMENT: General X-ray: Exam(s) Completed: Spine X-Ray(s): Thoracic PERIPHERAL IV DATA: Not applicable SIGNED BY: RT Luann(R) July 10, 2022 11:05 AM documented in this encounter [facility] 07-05-2022 Miscellaneous Notes Spoke with patient. Patient states he's found some relief with massager and Icy Hot. He states he will get x-ray in a week or two. Will call to schedule follow up afterwards. Denies shortness of breath. Berkley Loja Ok, lets start with a thoracic spine xray and follow up after. Make sure not short of breath etc. Patient returned office call and stated pain increases as the day progresses. Patient is interested in pursuing a neurological issue. Please advise and call patient. X2 attempt. Unable to reach patient. Left VM to return call to office. Please read below and advise. Nancy Au MA Left message to return call Let patient know I talked with Dr. Baldwin. He does not think there is a lump in the tissues giving him his symptoms. If he is still having a lot of pain in that area, he suggested we could look into a neurological issue causing it. How is his pain at this point? documented in this encounter [facility] 06-29-2022 Miscellaneous Notes Ok. Noted. Will follow Patient returned call and given provider's message below. Patient reports he did miss doses, 1 or 2 weeks, quit taking it due to muscle soreness in body. The muscle soreness did improve when he stopped taking the medication. Reports he just started taking it again. Left message to return call to office. Rodo Rios LPN Left message for pt to return call. Diana Ortega LPN Labs are stable. Cholesterol is up. Has he missed any doses of his cholesterol med. If not, we need to increase the dose. documented in this encounter [facility] 06-29-2022 History of Presen t illness Narrative HISTORY AND PHYSICAL Josh Calli Will 1965 REFERRING PHYSICIAN: Parish Crouch MD CHIEF COMPLAINT: Consult (Lipoma of torso) HPI: The patient is a 57 year old male with a complaint of Lesion of subcutaneous tissue (primary encounter diagnosis). Patient states that he was having left upper back pain pretty significant about 2 weeks ago. It gradually got better. He was taking Tylenol with no effect. Was seen by his primary care physician raise a question of whether or not this could be a lipoma. Got an x-ray of the chest which was nondiagnostic for anything obvious. Today it feels better than it has. He has had sebaceous cyst in the past. He cannot recall any infections or discharge from his back area. The patient is being seen by me today at the request of Dr. Parish Crouch MD for my opinion and advice regarding Lesion of subcutaneous tissue (primary encounter diagnosis). 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 PAST SURGICAL HISTORY Procedure Laterality Date COLONOSCOPY FLX DX W/COLLJ SPEC WHEN PFRMD 09/15/2017 Colonoscopy PAST SURGICAL HISTORY OF 1992 ORIF left wrist SKIN SURGERY HX skin cancer removal on face Current Outpatient Medications Medication Sig cyclobenzaprine (FLEXERIL) 10 mg tablet Take 1 tablet by mouth three times daily as needed. apixaban (ELIQUIS) 5 mg tab(s) Take 1 tablet by mouth twice daily. omeprazole (PRILOSEC) 20 mg capsule Take 1 capsule by mouth once daily. dilTIAZem XR (DILACOR XR) 120 mg 24 hr capsule Take 1 capsule by mouth once daily. allopurinol (ZYLOPRIM) 300 mg tablet Take 1 tablet by mouth once daily. lovastatin (MEVACOR) 10 mg tablet Take 1 tablet by mouth daily at bedtime. For cholesterol. cetirizine (ZYRTEC) 10 mg tablet Take 10 mg by mouth once daily. Cholecalciferol, Vitamin D3, 1,000 unit cap Take 1 capsule by mouth once daily. aspirin, enteric coated (ASPIRIN, ENTERIC COATED) 81 mg EC tablet Take 1 tablet by mouth once daily. Magnesium 250 mg tab Take 1 tablet by mouth. Current Facility-Administered Medications Medication Dose Route Frequency perflutren lipid microspheres 1.3 mL in NaCl (PF) 0.9% 10 mL injection (DEFINITY) INTRAVENOUS DIRECTED PRN sodium chloride 0.9 % (flush) 10 mL (BD POSIFLUSH) 10 mL INTRAVENOUS DIRECTED PRN perflutren lipid microspheres 1.3 mL in NaCl (PF) 0.9% 10 mL injection (DEFINITY) INTRAVENOUS DIRECTED PRN sodium chloride 0.9 % (flush) 10 mL (BD POSIFLUSH) 10 mL INTRAVENOUS DIRECTED PRN ALLERGIES: Seasonal Allergies PERSONAL HISTORY: Social History Tobacco Use Smoking status: Former Smokeless tobacco: Current Types: Chew Vaping Use Vaping Use: Never used Substance Use Topics Alcohol use: Not Currently Alcohol/week: 25.0 standard drinks Types: 10 Cans of Beer (12oz) per week Drug use: No FAMILY HISTORY: FAMILY HISTORY Problem Relation Age of Onset Diabetes Mother other (Other) Mother TIA Hypertension Father Stroke Father 78 Cancer Paternal Grandmother stomach Stroke Maternal Grandfather No Known Problems Sister Cancer Brother lymphoma Heart Nephew AFIB REVIEW OF SYMPTOMS: The review of systems data was entered by the nurse and reviewed by nh Nursing Notes: Reny Johnson LPN 06/29/2022 9:04 AM Signed REVIEW OF SYSTEMS: General: The patient notes fatigue, notes weight loss, notes weight gain, notes feeling hot, and notes feelings of cold. Eyes: The patient denies glaucoma, denies eye injury/surgery, does not wear glasses or contacts. Ear/Nose/Throat: The patient notes allergies, denies hayfever, denies ear infections, and denies bloody noses. Cardiovascular: The patient denies chest pain, denies heart disease, notes high blood pressure,denies cardiac stent, denies prior heart attack, notes irregular heart beat, notes high cholesterol, denies poor circulation, denies heart failure, other cardiac issues, denies claudication, denies cold feet, denies peripheral arterial stent. Respiratory: The patient denies tuberculosis, denies pneumonia, denies frequent cough, denies pulmonary embolism, denies shortness of breath, and denies coughing up blood. Gastrointestinal: The patient denies difficulty swallowing, notes acid reflux, denies ulcers, denies vomiting, denies jaundice/hepatitis, denies gallbladder problems, denies black or tarry stools, denies hemorrhoids, denies bleeding from rectum, denies diverticulitis, denies constipation, denies diarrhea, denies loss of stool control, and notes hernias. Kidney/Bladder: The patient notes kidney stones, denies urine infections, and notes bloody urine. Skin: The patient notes a history of skin cancer, denies bleeding/changing moles, and denies a history of skin rash. Neurologic: The patient denies a history of epilepsy/convulsions, notes headaches, notes head/spinal injuries, and denies stroke/TIA. Psychiatric: The patient denies psychiatric medications, denies depression, and denies voices, denies substance abuse. Endocrine: The patient denies thyroid disorders, denies diabetes, and denies hormonal problems. Hematologic: The patient denies a history of bruising, denies bleeding, and denies anemia, denies blood clots. Infections: The patient denies a history of measles and mumps, denies rheumatic fever, and denies sexually transmitted diseases. Musculoskeletal: The patient denies back pain/injury, denies back problems, notes sciatica, denies knee/foot trouble, denies arthritis, or notes gout. When was patient's last Mammogram screening? N/A Last Colonoscopy: 2018 Reny Johnson LPN PHYSICAL EXAMINATION: General: The patient is 57 year old male, well nourished, well hydrated in no acute distress. The patient is oriented to time, place, and person. VITALS: Blood pressure 132/80, pulse 76, temperature 36.2 C (97.2 F), height 182.9 cm (6'), weight 117.2 kg (258 lb 6.4 oz), SpO2 95 %. HEENT: Normal cephalic, ataumatic, pupils are equally round, sclera are anicteric, mucous membranes are moist, oropharynx is clear. Neck has no masses, asymmetry or lymphadenopathy. Thyroid is unremarkable. Respiratory: Clear to auscultation and percussion. Normal respiratory excursion and pattern. Cardiac: Examination is regular rate and rhythm. Abdominal exam: Soft, nontender, with no palpable masses. No hepatosplenomegaly. Patient has a noticeable reducible umbilical hernia Rectal exam: exam deferred Extremities: no clubbing, cyanosis or edema. No adenopathy. Other: Left upper back shows a open sinus with a small subcutaneous sebaceous cyst. It is nontender its not red is not firm its not fluctuant. Superior to that is another subcutaneous lesion this 1 does not have a pore but once again is consistent with most likely a sebaceous cyst. Neither of these areas are directly specifically where his discomfort is he feels like the discomfort can be deeper in nature. LABORATORY VALUES: As Noted RADIOLOGIC STUDIES: As Noted Assessment IMPRESSION: Lesion of subcutaneous tissue (primary encounter diagnosis) Umbilical hernia without obstruction or gangrene PLAN: I do not think the subcutaneous area where the sebaceous cyst is is his pain. At the present time I think it is best we do not do anything to him just see how things either get better or get worse. If the area where the sebaceous cyst is obviously gets red then we will do something to it. If his pain does not really improve then he is probably can have to seek out either a CAT scan of the area to see if there could be something or he might need to be seen by neurology secondary to his spinal cord issues. I probably would be a good thing anyways. Diagnoses: (D17.1) Lipoma of torso My findings have been communicated to Dr. Parish Crouch MD via shared medical record. This note will be forwarded to Dr. Parish Crouch MD. Return to Clinic: The patient is instructed to follow-up with me as needed. Glenn Baldwin III, MD documented in this encounter [facility] 06-29-2022 Nurse Note REVIEW OF SYSTEMS: General: The patient notes fatigue, notes weight loss, notes weight gain, notes feeling hot, and notes feelings of cold. Eyes: The patient denies glaucoma, denies eye injury/surgery, does not wear glasses or contacts. Ear/Nose/Throat: The patient notes allergies, denies hayfever, denies ear infections, and denies bloody noses. Cardiovascular: The patient denies chest pain, denies heart disease, notes high blood pressure,denies cardiac stent, denies prior heart attack, notes irregular heart beat, notes high cholesterol, denies poor circulation, denies heart failure, other cardiac issues, denies claudication, denies cold feet, denies peripheral arterial stent. Respiratory: The patient denies tuberculosis, denies pneumonia, denies frequent cough, denies pulmonary embolism, denies shortness of breath, and denies coughing up blood. Gastrointestinal: The patient denies difficulty swallowing, notes acid reflux, denies ulcers, denies vomiting, denies jaundice/hepatitis, denies gallbladder problems, denies black or tarry stools, denies hemorrhoids, denies bleeding from rectum, denies diverticulitis, denies constipation, denies diarrhea, denies loss of stool control, and notes hernias. Kidney/Bladder: The patient notes kidney stones, denies urine infections, and notes bloody urine. Skin: The patient notes a history of skin cancer, denies bleeding/changing moles, and denies a history of skin rash. Neurologic: The patient denies a history of epilepsy/convulsions, notes headaches, notes head/spinal injuries, and denies stroke/TIA. Psychiatric: The patient denies psychiatric medications, denies depression, and denies voices, denies substance abuse. Endocrine: The patient denies thyroid disorders, denies diabetes, and denies hormonal problems. Hematologic: The patient denies a history of bruising, denies bleeding, and denies anemia, denies blood clots. Infections: The patient denies a history of measles and mumps, denies rheumatic fever, and denies sexually transmitted diseases. Musculoskeletal: The patient denies back pain/injury, denies back problems, notes sciatica, denies knee/foot trouble, denies arthritis, or notes gout. When was patient's last Mammogram screening? N/A Last Colonoscopy: 2017 Reny Johnson LPN documented in this encounter [facility] 06-22-2022 History of Presen t illness Narrative Radiology Service Progress Note PATIENT NAME: Josh Sheppard DATE OF SERVICE: June 22, 2022 TIME: 4:25 PM PATIENT IDENTITY VERIFICATION COMPLETED USING TWO (2) IDENTIFIERS: Name and Date of confirmed by patient verbally. FALL SCREENING: Has the patient had 2 falls in the last year or 1 fall with injury or currently using an Ambulatory Assistive Device (Walker, Cane, Wheelchair, Crutches, etc.)? No PATIENT GENDER DATA: Male PATIENT RELEVANT IMPLANT DATA REVIEWED: Yes RADIOLOGY DEPARTMENT: General X-ray: Exam(s) Completed: Rib X-Ray: Left PERIPHERAL IV DATA: Not applicable SIGNED BY: RT Luann(R) June 22, 2022 4:25 PM documented in this encounter [facility] 05-21-2022 Miscellaneous Notes The original prescription was reordered on 05/19/2022 by Betina Topete APRN.CNP. Renewing this prescription may not be appropriate. documented in this encounter [facility] 05-19-2022 Miscellaneous Notes Patient's request for medication is as follows: Requested Prescriptions Signed Prescriptions Disp Refills apixaban (ELIQUIS) 5 mg tab(s) 180 tablet 3 Sig: Take 1 tablet by mouth twice daily. Authorizing Provider: BETINA TOPETE Prescription(s) as above. Please process accordingly. Betina Topete APRN.CNP documented in this encounter [facility] 04-26-2022 History of Presen t illness Narrative Images from the original note were not included. [facility] SE[facility] OUTPATIENT VISIT DATE April 26, 2022 PRIMARY CARE PHYSICIAN: Parish Crouch [address] [place] [address] HISTORY OF PRESENT ILLNESS: Mr. Sheppard is a 57 year old male. The patient returns for follow-up for history of paroxysmal atrial fibrillation and flutter status post recent redo ablation. Additional history includes hypertension, hyperlipidemia. He is on long-term anticoagulation with Eliquis. He noted some extra beats which he believes are PVCs and is discussing such with electrophysiology. He denies chest,, dyspnea, orthopnea, paroxysmal nocturnal dyspnea, near-syncope or syncope. He denies GI/ bleeding or melena. He is off his antidysrhythmic. PLAN AND RECOMMENDATIONS: The patient remained stable without symptoms that would suggest angina, cardiac decompensation nor probable paroxysms of his atrial fibrillation. Heart rate, blood pressure and recent cholesterol profile are favorable. We have therefore made no additions or changes. Dietary and lifestyle modification was reemphasized to facilitate risk factor reduction. We will look forward to reevaluating him in 8 months time from a general cardiology standpoint. Vitals: BP 114/74 Pulse 68 Ht 182.9 cm (6') Wt 115.5 kg (254 lb 9.6 oz) SpO2 98% BMI 34.53 kg/m Physical Exam Vitals reviewed. Constitutional: General: He is not in acute distress. Appearance: He is well-developed. He is not diaphoretic. HENT: Head: Normocephalic and atraumatic. Right Ear: External ear normal. Left Ear: External ear normal. Nose: Nose normal. Eyes: General: No scleral icterus. Right eye: No discharge. Left eye: No discharge. Pupils: Pupils are equal, round, and reactive to light. Neck: Thyroid: No thyromegaly. Vascular: No JVD. Cardiovascular: Rate and Rhythm: Normal rate. Rhythm irregular. Heart sounds: No murmur heard. No friction rub. No gallop. Pulmonary: Effort: Pulmonary effort is normal. No respiratory distress. Breath sounds: Normal breath sounds. No wheezing or rales. Abdominal: General: Bowel sounds are normal. Palpations: Abdomen is soft. Musculoskeletal: General: Normal range of motion. Cervical back: Neck supple. Skin: General: Skin is warm and dry. Coloration: Skin is not pale. Neurological: Mental Status: He is alert and oriented to person, place, and time. Cranial Nerves: No cranial nerve deficit. Psychiatric: Mood and Affect: Mood is not anxious or depressed. Behavior: Behavior normal. Thought Content: Thought content normal. Judgment: Judgment normal. Review of Systems Constitutional: Negative for activity change, appetite change, fatigue and unexpected weight change. HENT: Negative for ear pain and trouble swallowing. Eyes: Negative for pain and visual disturbance. Respiratory: Negative for chest tightness and shortness of breath. Cardiovascular: Negative for chest pain, palpitations and leg swelling. Gastrointestinal: Negative for abdominal pain and blood in stool. Endocrine: Negative for cold intolerance and heat intolerance. Genitourinary: Negative for dysuria, hematuria and scrotal swelling. Musculoskeletal: Negative for arthralgias and myalgias. Skin: Negative for pallor and rash. Allergic/Immunologic: Negative for immunocompromised state. Neurological: Negative for dizziness, syncope and light-headedness. Hematological: Negative for adenopathy. Does not bruise/bleed easily. Psychiatric/Behavioral: Negative for sleep disturbance. The patient is not nervous/anxious. 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 PAST SURGICAL HISTORY Procedure Laterality Date COLONOSCOPY FLX DX W/COLLJ SPEC WHEN PFRMD 09/15/2017 Colonoscopy PAST SURGICAL HISTORY OF 1992 ORIF left wrist SKIN SURGERY HX skin cancer removal on face Social History Tobacco Use Smoking status: Former Smokeless tobacco: Current Types: Chew Vaping Use Vaping Use: Never used Substance Use Topics Alcohol use: Not Currently Alcohol/week: 25.0 standard drinks Types: 10 Cans of Beer (12oz) per week Drug use: No FAMILY HISTORY Problem Relation Age of Onset Diabetes Mother other (Other) Mother TIA Hypertension Father Stroke Father 78 Cancer Paternal Grandmother stomach Stroke Maternal Grandfather No Known Problems Sister Cancer Brother lymphoma Heart Nephew AFIB ALLERGIES Allergen Reactions Seasonal Allergies Unknown Sinus congestion CURRENT MEDICATIONS: omeprazole (PRILOSEC) 20 mg capsule^Take 1 capsule by mouth once daily.^Disp: 30 capsule^Rfl: 11 dilTIAZem XR (DILACOR XR) 120 mg 24 hr capsule^Take 1 capsule by mouth once daily.^Disp: 90 capsule^Rfl: 3 allopurinol (ZYLOPRIM) 300 mg tablet^Take 1 tablet by mouth once daily.^Disp: 30 tablet^Rfl: 11 lovastatin (MEVACOR) 10 mg tablet^Take 1 tablet by mouth daily at bedtime. For cholesterol.^Disp: 90 tablet^Rfl: 3 cetirizine (ZYRTEC) 10 mg tablet^Take 10 mg by mouth once daily.^Disp: ^Rfl: apixaban (ELIQUIS) 5 mg tab(s)^Take 1 tablet by mouth twice daily.^Disp: 180 tablet^Rfl: 3 Cholecalciferol, Vitamin D3, 1,000 unit cap^Take 1 capsule by mouth once daily.^Disp: ^Rfl: aspirin, enteric coated (ASPIRIN, ENTERIC COATED) 81 mg EC tablet^Take 1 tablet by mouth once daily.^Disp: ^Rfl: 0 Magnesium 250 mg tab^Take 1 tablet by mouth.^Disp: ^Rfl: 0 Elvin Vaca DO, FACC, FACOI Clinical and Preventive Cardiology Department of Medicine and Division of Cardiology, [facility] [employer] Architectfacilities mechanical design engineer [facility] S[employer]w Architect of [facility] Cardiology Office Sap Bw Architect [facility] Staff Market Asset Protection Manager, Zaida Borrego Department of Cardiovascular Medicine/Heart and Vascular [place], [facility] Clinical Chief Warden Profressor of Medicine, [facility] Please note: This note has been produced using speech recognition software and may contain errors related to that system including josh, punctuation, spelling, words, gender and phrases that may be inappropriate. documented in this encounter [facility] 04-14-2022 Miscellaneous Notes Patient has been identified by name and date of : Yes Last office visit in this department: 03/17/22 labs-11/02/21 NOV-09/15/22 RX INSTRUCTIONS: Patient aware RX will be sent to pharmacy. No need to notify patient. Patient phones requesting refills as follows: Requested Prescriptions Pending Prescriptions Disp Refills omeprazole (PRILOSEC) 20 mg capsule Sig: Take 1 capsule by mouth once daily. Please review and advise. Karol Pruitt documented in this encounter [facility] 01-28-2022 Miscellaneous Notes Patient has been identified by name and date of : Yes Last office visit in this department: 09/11/2021 RX INSTRUCTIONS: Patient aware RX will be sent to pharmacy. No need to notify patient. Patient phones requesting refills as follows: Requested Prescriptions Pending Prescriptions Disp Refills allopurinol (ZYLOPRIM) 300 mg tablet 30 tablet 11 Sig: Take 1 tablet by mouth once daily. Please review and advise. Becka Porras Pss documented in this encounter [facility] 11-13-2021 Miscellaneous Notes Last office visit: 09/11/21 F/u scheduled: 03/17/22 Tessie Kay Ma Patient has been identified by name and date of : Yes Pending Prescriptions Disp Refills LOVASTATIN 10 MG TABLET 90 tablet 3 Sig: Take 1 tablet by mouth daily at bedtime. For cholesterol. DESI: No RX INSTRUCTIONS: Patient aware RX will be sent to pharmacy. No need to notify patient.. Jen Pruitt documented in this encounter [facility] 11-05-2021 History of Presen t illness Narrative TCM Home Visit Referral Source of Stratification: [facility] Hospital Admission Status: Discharged Readmission Risk Score: 8 DWAYNE Score: 1 Program referral criteria met: Does not meet referral criteria Patient does not qualify for High Risk TCM Home Visit program due to: Does not meet referral criteria Patient does not quality for High Risk TCM Home Visit Program due to: Does not meet referral criteria Preferred contact number: Is patient staying somewhere other than the listed home address: No Dialysis Patient: No TRANSITIONAL CARE MANAGEMENT (TCM) COMMUNITY MONITORING PROGRAM Provider Action/FYI: SUMMARY: Pt discharged from [facility] on 11/04. Admitted for: Arrhythmia Contact made with patient: Yes Hi my name is Mary Murphy RN and I am calling from the [facility] on behalf of your PCP, Parish Crouch MD I understand you were recently in the hospital so I am calling to check in with you to ensure you are feeling well now that you're home. May I ask you a few questions related to your hospital stay and well-being? Yes Contact with patient post discharge, spoke to patient. Patient identified by name and . Do you feel your health is BETTER, WORSE, or the SAME since leaving the hospital? Better Spoke to Mr Sheppard. The patient said he did well overnight since being discharged. No c/o palpitations or chest pain No lightheadedness or dizziness No shortness of breath Patient taking his medications as directed Declined a PCP f/u at this time Told to call for any issues or concerns ACTION TAKEN: Patient indicated symptoms are better or same, no action required. Continue outreach. MEDICATIONS: Many patients have questions or concerns about their medications once they are home. Do you have any questions about taking your medications or which medication you should be on? Yes Do you need any medication refills at this time, including any of the medications you might take only when needed? No ACTION TAKEN: No action required SOCIAL: We would like to make sure you have what you need so that your basics needs are met - including your personal safety, food, housing and medications. Would you like to speak with a social work team assembly line machine operator to help give you support for any of these needs? No It can be normal to feel anxious or down during a time like this. Would you like to talk to a mental health professional about how you have been feeling? No ACTION TAKEN: No action taken DISCHARGE INTRUCTIONS: Your discharge instructions / After Visit Summary (AVS) are important in guiding you through the recovery process. Do you have any questions related to your discharge instructions? No Do you have all the necessary equipment and supplies at home? NA ACTION TAKEN: No action required I would like to help you schedule a hospital follow-up virtual or telephone visit with your PCP. This is a great way for you to connect with your provider to ensure you have safely transitioned home. If you are agreeable, I will send your request to a medical scheduler who will contact and assist you with that appointment. This will give you an opportunity to ask any questions or address any concerns you may have with your PCP. Inform the patient that if they have any questions or concerns prior to that appointment, to call their PCP's office right away. ACTION TAKEN: No action required, patient declines appointment. Your doctor would like us to remind you of the recommendations regarding the coronavirus (Covid19) outbreak: Avoid public places as much as possible. Avoid close contact (within 6 feet) with others you don t live with, especially if they are sick. Stay home if you are sick. Wash your hands regularly for at least 20 seconds with soap and water. Wear a cloth mask in public places to help reduce community spread. Do not go to your Doctor s office unless instructed to do so. For any non-emergency symptoms, call your Doctor s office to get instructions on how to manage (we might recommend a telephone or virtual visit). For emergency symptoms, proceed to Emergency Department as usual but inform them of cough and fever symptoms CASEY if present (or call on the way if possible). Mary Murphy RN BSN [facility] [phone] documented in this encounter [facility] 11-05-2021 History of Presen t illness Narrative Patient already has transmitter, he will keep sending them over. PEDRO Campoverde documented in this encounter [facility] 11-03-2021 History of Presen t illness Narrative THE FOLLOWING WAS EVALUATED Motivation To Learn: Interested Family/Significant Other Support: Unable to assess - Family not present Cognitive Ability: Alert and oriented Patient Learns Best By: Individual Instruction The Following Influencing Factors Were Barriers To This Education Session: None The Following Physical Limitations Were Barriers To This Education Session: None Instruction Provided To: Patient Procedure: Pulmonary Vein Ablation/Isolation Pre-procedure information reviewed: Patient ID verified Procedure verified Physician verified Explanation of procedure Sedation level during procedure medication instructions from EP lab request: On Eliquis Patient denies missing any doses of Eliquis in the last 3 weeks or 21 days. Instructed to hold medication tomorrow morning. Travel instructions/restrictions Scheduling information Possible same day discharge versus overnight hospital stay Check out time Family waiting area Physician contact with family after procedure Post Procedure Expectations reviewed: Inpatient hospital stay Post procedure antiarrhythmics and anticoagulation will be discussed with Physician, nurse practitioner or Physician customer support assistant upon discharge Instructions for transmitting EKG to Monitoring Center 3 month follow up instructions Contact number for information and questions Patient Evaluation: Verbalizes understanding Follow Up Plan: Follow up as directed by MD. Supplemental Material Given: Written Material Patient education regarding radiation exposure. Instructed By Esperanza Noble RN, RN. In Department of CARDIOLOGY. documented in this encounter [facility] 10-08-2021 Miscellaneous Notes Outside EP documented in this encounter [facility] 10-02-2021 Miscellaneous Notes Returned call, no answer, left message: ok to send weekly. Nancy Manzo RN October 02, 2021 Patient Contact Number: [phone] (home) [phone] (cell) Patient last seen within the last year: Yes Reason For Call: Other Issue: What is the frequency he should send in TTMs, daily, weekly? Florencia [id number] Electronically signed by Florencia Rasheed [facility] at 10/02/2021 2:36 PM EDTdocumented in this encounter [facility] 10-02-2021 Miscellaneous Notes The date of 11/04/21 with offered & accepted by patient. Needs pre-op Covid-19 test & Labs (CBC,BMP,30 day T&S) in [facility] on 11/02/21, prior to procedure date. ----- Message from Darin Marte MD sent at 09/28/2021 1:13 PM EDT ----- please schedule for redo PVI / atypical AFL RFA GA CARTO On Eliquis. Thanks bb documented in this encounter [facility] 09-30-2021 Nurse Note THE FOLLOWING WAS EVALUATED Motivation To Learn: Interested Family/Significant Other Support: Unable to assess - Family not present Cognitive Ability: Alert and oriented Patient Learns Best By: Individual Instruction The Following Influencing Factors Were Barriers To This Education Session: None The Following Physical Limitations Were Barriers To This Education Session: None Instruction Provided To: Patient Procedure: Cardioversion Pre-procedure information reviewed: Patient ID verified Procedure verified Physician verified Explanation of procedure Sedation level during procedure MD medication instructions from EP lab request n/a Travel instructions/restrictions Scheduling information Possible same day discharge versus overnight hospital stay Check out time Family waiting area Physician contact with family after procedure Post Procedure Expectations reviewed: Inpatient hospital stay Post procedure antiarrhythmics and anticoagulation will be discussed with Physician, nurse practitioner or Physician customer support assistant upon discharge Instructions for transmitting EKG to Monitoring Center 3 month follow up instructions Contact number for information and questions Patient Evaluation: Verbalizes understanding Follow Up Plan: Follow up as directed by . Supplemental Material Given: Written Material Instructed By Diana Hunter RN. In Department of CARDIOLOGY. documented in this encounter [facility] 09-28-2021 Miscellaneous Notes Scheduled as requested for 10-01-21. Patient aware. Denies missing any doses of Eliquis in the past 3 weeks/ 21 days. ----- Message from Darin Marte MD sent at 09/28/2021 1:12 PM EDT ----- EPS LAB PROCEDURE REQUEST: Cardioversion &/or ROSELYN PATIENT: Josh Sheppard Request Placed by: Darin Marte MD Requesting Physician: star Procedure Physician: Darin Marte MD Date of Last H&P? 09-28 Procedure Requested: DCC 0 please schedule on 10-01-21 (will check TTMs Tuesday - to make sure still in AFL before proceeding) Indications / Dx for procedure: Atrial Tachycardia Anticoagulation Status: Eliquis (apixaban) Type of bed needed: 2 HR RECOVERY IN I/O ROOM documented in this encounter [facility] 09-28-2021 History of Presen t illness Narrative Images from the original note were not included. EP STAFF NOTE: Please note: This note has been produced using speech recognition software and may contain errors related to that system including grammar, punctuation, spelling, gender and words and phrases that may be inappropriate Consultation requested by Radha Dsouza for an opinion regarding management of AF and my final recommendations will be communicated back to the requesting physician by way of shared medical record OR letter via fax/US mail. I have reviewed the above information and examined the patient and confirm the above with the following additions/modifications. ECG: atypical AFL with RVR PE: Vitals: BP 114/66 (BP Site: Left Arm, BP Position: Sitting, BP Cuff Size: Large Adult) Pulse (!) 127 Ht 182.9 cm (6') Wt 103.9 kg (229 lb) SpO2 100% BMI 31.06 kg/m General: Appears well nourished. In no acute distress. Lungs: Unlabored Heart: tachy Extremities: No peripheral edema bilaterally. PROBLEM LIST: symptomatic paroxysmal atrial fibrillation associated with RVR - first Dx and documented on EKG at [facility] 08-09-2013 - He was originally started on Atenolol. He continued to have paroxysmal episodes of AF, and was started on Flecainide 100 mg BID in 09/2013 with an increase eventually to 150 mg BID. He has been maintained on Flecainide since. He endorses ~3 episodes of AF a year. His longest and last episode occurred at the end of February 2019 and lasted ~14 hours. At his last office visit with Radha Dsouza NP at the end of March 2019, he expressed interested in obtaining information regarding ablation and was therefore referred here. HTN HLD obesity congenital syringomyelia Patient was first diagnosed with atrial fibrillation in 2013. He had been aware of some irregularity in his heart rhythm since 1997. He does endorse fatigue. He denies lightheadedness, dizziness, chest pain, shortness of breath, near syncope or syncope. Last echo was done in 2013. Nuclear stress test done in February 2018 was negative for ischemia and revealed a preserved EF. CHADSVASC 1 (HTN) - on 81 mg ASA Echo 2014: CONCLUSIONS: - Technically difficult exam due to body habitus. - Exam indication: A Fib - Left ventricular systolic function is normal. EF = 60 5% (visual est.) Definity contrast used for endocardial border detection. - The left atrial cavity is mildly dilated. - There are no significant valvular abnormalities. PLAX 2D measurements on slides 40-41 Nuclear Stress 02/2018: IMPRESSION / PLAN: 56 y/o with symptomatic PAF Dx 2013 - managed with Flecainide / Dilt. No known structural heart disease by TTE 2013 and PE. Triggers have included ETOH and ? OZZIE. Weight loss, limited ETOH consumption and screening for OZZIE reviewed. Referred to [facility] -reviewed AF management at that time - He was felt to be an appropriate candidatefor PVI versus a switch to a class III AAD as the burden of AF worsening - R/B reviewed. He wanted to defer a change in management for now - but will likely pursue PVI when the episodes become more frequent and bothersome. Recommended he up-date this TTE to again r/o structural heart disease - can be done at [facility]. Finally AC discussed - CHADS VASc is 1 - AC versus no therapy is reasonable. Deferred AC for now. Annual follow up - sooner if AF becomes more bothersome. Last seen by [facility] - Event rate and duration has worsen since his last visit. TTE : - The left ventricle is normal in size. Left ventricular systolic function is normal. EF = 59 5% (2D biplane) Normal left ventricular diastolic function. - The right ventricle is normal in size. Right ventricular systolic function is normal. - The left atrial cavity is mildly dilated. - No significant valvular disease. - The patient has not had a prior CC echocardiographic exam for comparison. Zio : Patient had a min HR of 45 bpm, max HR of 237 bpm, and avg HR of 89 bpm. Predominant underlying rhythm was Sinus Rhythm. 6 Supraventricular Tachycardia runs occurred, the run with the fastest interval lasting 5 beats with a max rate of 152 bpm (avg 116 bpm); the run with the fastest interval was also the longest. Some episodes of Supraventricular Tachycardia may be possible Atrial Tachycardia with variable block. Atrial Fibrillation occurred (48% burden), ranging from 57-237 bpm (avg of 111 bpm), the longest lasting 6 days 14 hours with an avg rate of 111 bpm. Atrial Fibrillation was present at de-activation of device. Supraventricular Tachycardia was detected within +/- 45 seconds of symptomatic patient event(s). Isolated SVEs were rare (<1.0%), SVE Couplets were rare (<1.0%), and SVE Triplets were rare (<1.0%). Isolated VEs were rare (<1.0%), and no VE Couplets or VE Triplets were present. MD notification criteria for Rapid Atrial Fibrillation met - notified Barbara Do on 24 Apr 2021 at 03:[address] (). Started on Eliquis since last visit in anticipation of the need for DCC - however spontaneously converted after 6 days. Re-reviewed PVI versus switching to a class III AAD - R/B reviewed. Wished to pursue PVI. PVI 06-30-2021: The Pentaray D-curve mapping catheter was advanced into the left atrium. The Pentaray catheter was used to generate a detailed 3D electroanatomic voltage and activation maps of the left atrium using the CARTO mapping system during sinus rhythm. There was dense scar just within the ostial of the veins. The antral tissue with irritable with frequent catheter induced PACs. Phrenic capture was noted just within the anterior portion of the RSPV. This location was marked and the WACA line was placed well away from the area of capture. The Pentaray was exchanged for an externally irrigated 3.5mm contact force sensing ablation catheter. WACA ablation was performed. Rapid esophageal heating was noted posterior to the RIPV and LIPV and power and lesion duration was limited in these locations. We achieved less than first pass isolation of the left sided vein and the RIPV. The RSPV continued to manifest conduction following the WACA lesion set. Mapping demonstrated continued conduction along the posterior roof / posterior eusebio and subsequent reinforcement ablation along the posterior eusebio and roof of the RSPV resulted in isolation. After ablation exit and entrance block were demonstrated in all PVs. The posterior wall ablation lines ended up being very close from the left and R sided WACAs. As not to precipitate atypical flutters, we performed horizontal ablation lines along the inferiorly and superiorly to box isolate the posterior wall. [place] duration lesions and lower power (25-30W) and frequent interruptions in ablation were also utilized to minimize esophageal heating. Catheters were then pulled back into the right atrium, heparin was stopped, and protamine administered. The sheaths and catheters were pulled, and hemostasis achieved with Vascade closure devices Episode of AFL with RVR POD 2. All TTMs - NSR until 09-24-21 - recurrent AF / AFL with RVR Remains on Flec and Dilt. Suspect recovery of PV conduction. Reviewed management. Agreed to the follow TTM tomorrow and Tuesday - if dose not spontaneously convert - DCC at main . Increase Dilt to 180 mg BID until out of AFL Scheduled redo PVI / atypical AFL RFA. This note was created with electronic dictation and errors in syntax and meaning may have occurred. Darin Marte MD Pager: [phone] Office: [phone] I personally examined the patient and repeated the red components of the exam and cardiac history, past medical and surgical history, social and family history. The assessment and plan were formulated and discussed with the patient and family. I spent over 25 minutes (face time) and greater than 50% of this time was spent counseling and/or coordinating the care of the patient with regard the diagnosis and medical regimen Referring Physician: Parish Crouch MD [address] [place] [address] Radha Dsouza APRN.CONSUMER RELATIONS COMPLAINT CLERK [address] [facility] [id number] documented in this encounter [facility] 09-28-2021 Miscellaneous Notes Spoke to patient re transmission received showing AF. Patient scheduled for f/u visit with Dr Marte today at [facility]. Nancy Manzo RN documented in this encounter [facility] 09-21-2021 History of Presen t illness Narrative Images from the original note were not included. [facility] SECTION OF [facility]AL CARDIOLOGY [facility] OUTPATIENT VISIT DATE September 21, 2021 PRIMARY CARE PHYSICIAN: Parish Crouch [address] [place] [address] HISTORY OF PRESENT ILLNESS: Mr. Sheppard is a 56 year old male. The patient returns for follow-up second history of paroxysmal atrial fibrillation status post recent ablation. He continues to have rare palpitations. Additional history includes hypertension and hyperlipidemia. He is on long-term oral anticoagulation with Eliquis and maintained sinus rhythm additionally with flecainide. He denies chest scar, dyspnea, orthopnea, paroxysmal nocturnal dyspnea, near-syncope or syncope. He denies GI/ bleeding or melena. Recent EKG demonstrates a normal QTc interval. PLAN AND RECOMMENDATIONS: The patient remained stable without symptoms that would suggest angina or cardiac decompensation. Heart rate, blood pressure and recent cholesterol profile are favorable. We have therefore made no additions or changes. Dietary and lifestyle modification was reemphasized to facilitate risk factor reduction. He will be reevaluated by electrophysiology in a week's time. We will look forward to reevaluating him in 6 to 7 months time. Vitals: BP 118/80 Pulse 61 Ht 182.9 cm (6') Wt 105.7 kg (233 lb) SpO2 99% BMI 31.60 kg/m Physical Exam Vitals reviewed. Constitutional: General: He is not in acute distress. Appearance: He is well-developed. He is not diaphoretic. HENT: Head: Normocephalic and atraumatic. Right Ear: External ear normal. Left Ear: External ear normal. Nose: Nose normal. Eyes: General: No scleral icterus. Right eye: No discharge. Left eye: No discharge. Pupils: Pupils are equal, round, and reactive to light. Neck: Thyroid: No thyromegaly. Vascular: No JVD. Cardiovascular: Rate and Rhythm: Normal rate. Rhythm irregular. Heart sounds: No murmur heard. No friction rub. No gallop. Pulmonary: Effort: Pulmonary effort is normal. No respiratory distress. Breath sounds: Normal breath sounds. No wheezing or rales. Abdominal: General: Bowel sounds are normal. Palpations: Abdomen is soft. Musculoskeletal: General: Normal range of motion. Cervical back: Neck supple. Skin: General: Skin is warm and dry. Coloration: Skin is not pale. Neurological: Mental Status: He is alert and oriented to person, place, and time. Cranial Nerves: No cranial nerve deficit. Psychiatric: Mood and Affect: Mood is not anxious or depressed. Behavior: Behavior normal. Thought Content: Thought content normal. Judgment: Judgment normal. Review of Systems Constitutional: Positive for fatigue. Negative for activity change, appetite change and unexpected weight change. HENT: Negative for ear pain and trouble swallowing. Eyes: Negative for pain and visual disturbance. Respiratory: Negative for chest tightness and shortness of breath. Cardiovascular: Positive for palpitations (intermittent). Negative for chest pain and leg swelling. Gastrointestinal: Negative for abdominal pain and blood in stool. Endocrine: Negative for cold intolerance and heat intolerance. Genitourinary: Negative for dysuria, hematuria and scrotal swelling. Musculoskeletal: Negative for arthralgias and myalgias. Skin: Negative for pallor and rash. Allergic/Immunologic: Negative for immunocompromised state. Neurological: Negative for dizziness, syncope and light-headedness. Hematological: Negative for adenopathy. Does not bruise/bleed easily. Psychiatric/Behavioral: Negative for sleep disturbance. The patient is not nervous/anxious. 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 PAST SURGICAL HISTORY Procedure Laterality Date COLONOSCOPY FLX DX W/COLLJ SPEC WHEN PFRMD 09/15/2017 Colonoscopy PAST SURGICAL HISTORY OF 1992 ORIF left wrist SKIN SURGERY HX skin cancer removal on face Social History Tobacco Use Smoking status: Former Smoker Smokeless tobacco: Current User Types: Chew Vaping Use Vaping Use: Never used Substance Use Topics Alcohol use: Not Currently Alcohol/week: 25.0 standard drinks Types: 10 Cans of Beer (12oz) per week Drug use: No FAMILY HISTORY Problem Relation Age of Onset Diabetes Mother other (Other) Mother TIA Hypertension Father Stroke Father 78 Cancer Paternal Grandmother stomach Stroke Maternal Grandfather No Known Problems Sister Cancer Brother lymphoma Heart Nephew AFIB ALLERGIES Allergen Reactions Seasonal Allergies Unknown Sinus congestion CURRENT MEDICATIONS: cetirizine (ZYRTEC) 10 mg tablet Take 10 mg by mouth once daily. apixaban (ELIQUIS) 5 mg tab(s) Take 1 tablet by mouth twice daily. flecainide (TAMBOCOR) 150 mg tablet Take 1 tablet by mouth twice daily. allopurinol (ZYLOPRIM) 300 mg tablet Take 1 tablet by mouth once daily. lovastatin (MEVACOR) 10 mg tablet Take 1 tablet by mouth daily at bedtime. For cholesterol. dilTIAZem CD (CARTIA XT) 180 mg 24 hr capsule Take 1 capsule by mouth once daily. Cholecalciferol, Vitamin D3, 1,000 unit cap Take 1 capsule by mouth once daily. aspirin, enteric coated (ASPIR-LOW) 81 mg EC tablet Take 1 tablet by mouth once daily. Magnesium 250 mg tab Take 1 tablet by mouth. pantoprazole DR (PROTONIX) 40 mg tablet Take 1 tablet by mouth DAILY (6 AM) for 28 days. Elvin Vaca DO, FACC, FACOI Clinical and Preventive Cardiology Department of Medicine and Division of Cardiology, [facility] [employer] Architectfacilities mechanical design engineer [facility] S[employer] Architect of [facility] Cardiology Office S[employer] Architect [facility] Staff Market Asset Protection Manager, Zaida Borrego Department of Cardiovascular Medicine/Heart and Vascular [place], [facility] Clinical Chief Warden Profressor of Medicine, [facility] of [facility] Please note: This note has been produced using speech recognition software and may contain errors related to that system including josh, punctuation, spelling, words, gender and phrases that may be inappropriate. documented in this encounter [facility] 09-11-2021 History of Presen t illness Narrative No chief complaint on file. HPI: Patient presents today for office visit for follow up. Had ablation. Sees cardiology on 09/21 and 09/28. Has been feeling well since. Overall doing well. Currently no chest pain or shortness of breath. No palpitations. Has been active doing hay. Feels well. No bleeding issues. No polyuria or polydipsia. Had noted in the past he has noted some mild neck tenderness. Unsure if lumps. Is better since on antihistamines. Suggested we could do ct scan. Declines. Component Latest Ref Rng & Units 03/25/2021 Glucose 74 - 99 mg/dL 94 BUN 9 - 24 mg/dL 14 Creatinine 0.73 - 1.22 mg/dL 0.87 Sodium 136 - 144 mmol/L 139 Potassium 3.7 - 5.1 mmol/L 4.2 Chloride 97 - 105 mmol/L 105 CO2 22 - 30 mmol/L 25 Anion Gap 9 - 18 mmol/L 9 Calcium 8.5 - 10.2 mg/dL 9.7 eGFR- >60 eGFR-All Other Races . >60 WBC 3.70 - 11.00 k/uL 6.62 RBC 4.20 - 6.00 m/uL 5.09 Hemoglobin 13.0 - 17.0 g/dL 15.2 Hematocrit 39.0 - 51.0 % 47.1 MCV 80.0 - 100.0 fL 92.5 MCH 26.0 - 34.0 pG 29.9 MCHC 30.5 - 36.0 g/dL 32.3 RDW-CV 11.5 - 15.0 % 13.1 Platelet Count 150 - 400 k/uL 217 MPV 9.0 - 12.7 fL 12.8 (H) Absolute nRBC <0.01 k/uL <0.01 Cholesterol, Total <200 mg/dL 163 Triglyceride <150 mg/dL 74 HDL Cholesterol >39 mg/dL 52 LDL Cholesterol <100 mg/dL 96 Non HDL Cholesterol <130 mg/dL 111 Fasting Time hrs 12 VLDL Cholesterol <30 mg/dL 15 TC:HDL Ratio <5.10 3.13 LDL:HDL Ratio <2.54 1.85 Hemoglobin A1C 4.3 - 5.6 % 6.0 (H) Estimated Average Glucose mg/dL 126 See previous ov, copied and pasted: Was in ER at [facility] on Tuesday of this past weekend. Had labs. ekg was in NSR. Sinus rhythm with Premature atrial complexes Otherwise normal ECG Narrative: 56-year-old male presenting with epigastric burning which has been present for 32 hours. He thinks he is in atrial fibrillation which you have a history of he is currently on flecainide and Cardizem. 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 Patient has had intermittent A. fib symptoms but states that he has never had it last this long. He denies chest pressure or shortness of breath. He denies fever, chills, cough. He is not had any lightheadedness or dizziness. Denies history of DVT or risk factors. Patient is currently not anticoagulated. Has had no symptoms since then. No chest pain or shortness of breath. He states the palpitations he had were there when on ekg. Had not slept as well. Not drinking caffeine. No chest pain or shortness of breath or dizziness. No more blood in the urine. His ldl is improving. They did not draw liver or a1c. He had a syrinx identified remotely No new changes. He has not had it evaluated in some time. No new numbness or weakness. Offered follow up with neurosurgery or spine. MEDICATIONS: Current Outpatient Medications Medication Sig pantoprazole DR (PROTONIX) 40 mg tablet Take 1 tablet by mouth DAILY (6 AM) for 28 days. apixaban (ELIQUIS) 5 mg tab(s) Take 1 tablet by mouth twice daily. flecainide (TAMBOCOR) 150 mg tablet Take 1 tablet by mouth twice daily. allopurinol (ZYLOPRIM) 300 mg tablet Take 1 tablet by mouth once daily. lovastatin (MEVACOR) 10 mg tablet Take 1 tablet by mouth daily at bedtime. For cholesterol. dilTIAZem CD (CARTIA XT) 180 mg 24 hr capsule Take 1 capsule by mouth once daily. Cholecalciferol, Vitamin D3, 1,000 unit cap Take 1 capsule by mouth once daily. aspirin, enteric coated (ASPIR-LOW) 81 mg EC tablet Take 1 tablet by mouth once daily. Magnesium 250 mg tab Take 1 tablet by mouth. Current Facility-Administered Medications Medication Dose Route Frequency perflutren lipid microspheres 1.3 mL in NaCl (PF) 0.9% 10 mL injection (DEFINITY) INTRAVENOUS DIRECTED PRN sodium chloride 0.9 % (flush) 10 mL (BD POSIFLUSH) 10 mL INTRAVENOUS DIRECTED PRN ALLERGIES: ALLERGIES Allergen Reactions Seasonal Allergies Unknown Sinus congestion PAST MEDICAL HISTORY Diagnosis Date Arrhythmia Atrial fibrillation (HCC) HTN (hypertension) Syringomyelia and syringobulbia (HCC) decreased sensation in upper left arm and hand. PAST SURGICAL HISTORY Procedure Laterality Date COLONOSCOPY FLX DX W/COLLJ SPEC WHEN PFRMD 09/15/2017 Colonoscopy PAST SURGICAL HISTORY OF 1992 ORIF left wrist SKIN SURGERY HX skin cancer removal on face FAMILY HISTORY Problem Relation Age of Onset Diabetes Mother other (Other) Mother TIA Hypertension Father Stroke Father 78 Cancer Paternal Grandmother stomach Stroke Maternal Grandfather No Known Problems Sister Cancer Brother lymphoma Heart Nephew AFIB Social History Tobacco Use Smoking status: Former Smoker Smokeless tobacco: Current User Types: Chew Vaping Use Vaping Use: Never used Substance Use Topics Alcohol use: Not Currently Alcohol/week: 25.0 standard drinks Types: 10 Cans of Beer (12oz) per week Drug use: No Reviewed current medications, allergies, past medical history, surgical history, family history and social history today. REVIEW OF SYSTEMS has been watching his weight All other reviewed and negative other than HPI. VITALS: BP 128/78 Pulse 64 Wt 105.2 kg (232 lb) SpO2 98% BMI 31.46 kg/m Last 4 Encounter Wt Readings: Date: Wt: 06/04/2021 105.7 kg (233 lb 0.4 oz) 05/14/2021 106.6 kg (235 lb) 04/20/2021 106.6 kg (235 lb) 03/26/2021 109.3 kg (241 lb) PHYSICAL EXAMINATION: General appearance: Well appearing, alert, in no acute distress, well-hydrated, well nourished. Skin: Skin color, texture, turgor normal, no suspicious rashes or lesions Head: Normocephalic, no masses, lesions, tenderness or abnormalities Lungs: Lungs clear to auscultation. No wheezing, rhonchi, rales Heart: RRR without murmur, gallop, or rubs. No ectopy Abdomen: Normal abdominal exam, Abdomen soft, non-tender. Bowel sounds normal. No masses, organomegaly Extremities: No deformities, edema, skin discoloration, clubbing or cyanosis. Good capillary refill. Musculoskeletal: No joint swelling, deformity, or tenderness Peripheral pulses: Normal Neuro: Negative. ASSESSMENT/PLAN: 1. Essential hypertension - ICD9: 401.9, ICD10: I10 (primary diagnosis) - good control - Continue current medication(s) - Goal of BP <130/80 - CBC + DIFF 2. 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 (HCC) - ICD9: 427.31, ICD10: I48.0 - continue meds for now. See cardiology. 3. Hyperglycemia - ICD9: 790.29, ICD10: R73.9 - follow lab. - HGB A1C 4. Gouty arthropathy - ICD9: 274.00, ICD10: M10.9 - doing well. 5. Mixed hyperlipidemia - ICD9: 272.2, ICD10: E78.2 - good control - Continue current medication. - HEPATIC FUNCTION PNL [place]ouch RTO in six months and prn. documented in this encounter [facility] 07-01-2021 History of Presen t illness Narrative TRANSMITTER INSTRUCTIONS Patient Name: Josh Sheppard Clinic Number: [id number] Fresh battery inserted in monitor Patient instructed 1.) Scheduled and Symptomatic recording instructions 2.) Usage of event button and/or transmission instructions 3.) Maintenance and care of monitor 4.) Landline availability 5.) Return unit at the end of prescribed order 6.) Call with problems [phone] OR [phone] Patient expresses good verbal understanding of instructions Marti JEFFERY documented in this encounter [facility] 05-09-2020 History of Past i llness Narrative Problem Noted Date Resolved Date Hypoglycemia 05/09/2020 05/09/2020 Lip lesion 10/02/2014 08/22/2018 LFT elevation 01/15/2014 08/22/2018 Gout 08/14/2009 08/22/2018 Chest pain 06/07/1997 08/22/2018 documented as of this encounter (statuses as of 07/01/2021) [facility]2021 History of Past illness Narrative* Problem Noted Date Resolved Date Hypoglycemia 05/09/2020 05/09/2020 Lip lesion 10/02/2014 08/22/2018 LFT elevation 01/15/2014 08/22/2018 Gout 08/14/2009 08/22/2018 Chest pain 06/07/1997 08/22/2018 documented as of this encounter (statuses as of 07/02/2021) [facility]21 History of Past illness Narrative* Problem Noted Date Resolved Date Hypoglycemia 05/09/2020 05/09/2020 Lip lesion 10/02/2014 08/22/2018 LFT elevation 01/15/2014 08/22/2018 Gout 08/14/2009 08/22/2018 Chest pain 06/07/1997 08/22/2018 documented as of this encounter (statuses as of 07/07/2021) [address]-2021 History of Past illness Narrative* Problem Noted Date Resolved Date Hypoglycemia 05/09/2020 05/09/2020 Lip lesion 10/02/2014 08/22/2018 LFT elevation 01/15/2014 08/22/2018 Gout 08/14/2009 08/22/2018 Chest pain 06/07/1997 08/22/2018 documented as of this encounter (statuses as of 07/16/2021) [facility] History of Past illness Narrative* Problem Noted Date Resolved Date Hypoglycemia 05/09/2020 05/09/2020 Lip lesion 10/02/2014 08/22/2018 LFT elevation 01/15/2014 08/22/2018 Gout 08/14/2009 08/22/2018 Chest pain 06/07/1997 08/22/2018 documented as of this encounter (statuses as of 07/23/2021) [facility] History of Past illness Narrative* Problem Noted Date Resolved Date Hypoglycemia 05/09/2020 05/09/2020 Lip lesion 10/02/2014 08/22/2018 LFT elevation 01/15/2014 08/22/2018 Gout 08/14/2009 08/22/2018 Chest pain 06/07/1997 08/22/2018 documented as of this encounter (statuses as of 07/30/2021) [facility]21 History of Past illness Narrative* Problem Noted Date Resolved Date Hypoglycemia 05/09/2020 05/09/2020 Lip lesion 10/02/2014 08/22/2018 LFT elevation 01/15/2014 08/22/2018 Gout 08/14/2009 08/22/2018 Chest pain 06/07/1997 08/22/2018 documented as of this encounter (statuses as of 08/19/2021) [address]-2021 History of Past illness Narrative* Problem Noted Date Resolved Date Hypoglycemia 05/09/2020 05/09/2020 Lip lesion 10/02/2014 08/22/2018 LFT elevation 01/15/2014 08/22/2018 Gout 08/14/2009 08/22/2018 Chest pain 06/07/1997 08/22/2018 documented as of this encounter (statuses as of 08/27/2021) [address]-2021 History of Past illness Narrative* Problem Noted Date Resolved Date Hypoglycemia 05/09/2020 05/09/2020 Lip lesion 10/02/2014 08/22/2018 LFT elevation 01/15/2014 08/22/2018 Gout 08/14/2009 08/22/2018 Chest pain 06/07/1997 08/22/2018 documented as of this encounter (statuses as of 09/03/2021) [facility] History of Past illness Narrative* Problem Noted Date Resolved Date Hypoglycemia 05/09/2020 05/09/2020 Lip lesion 10/02/2014 08/22/2018 LFT elevation 01/15/2014 08/22/2018 Gout 08/14/2009 08/22/2018 Chest pain 06/07/1997 08/22/2018 documented as of this encounter (statuses as of 09/11/2021) [facility] History of Past illness Narrative* Problem Noted Date Resolved Date Hypoglycemia 05/09/2020 05/09/2020 Lip lesion 10/02/2014 08/22/2018 LFT elevation 01/15/2014 08/22/2018 Gout 08/14/2009 08/22/2018 Chest pain 06/07/1997 08/22/2018 documented as of this encounter (statuses as of 09/17/2021) [facility] History of Past illness Narrative* Problem Noted Date Resolved Date Hypoglycemia 05/09/2020 05/09/2020 Lip lesion 10/02/2014 08/22/2018 LFT elevation 01/15/2014 08/22/2018 Gout 08/14/2009 08/22/2018 Chest pain 06/07/1997 08/22/2018 documented as of this encounter (statuses as of 09/21/2021) [facility] History of Past illness Narrative* Problem Noted Date Resolved Date Hypoglycemia 05/09/2020 05/09/2020 Lip lesion 10/02/2014 08/22/2018 LFT elevation 01/15/2014 08/22/2018 Gout 08/14/2009 08/22/2018 Chest pain 06/07/1997 08/22/2018 documented as of this encounter (statuses as of 09/28/2021) [address]-2021 History of Past illness Narrative* Problem Noted Date Resolved Date Hypoglycemia 05/09/2020 05/09/2020 Lip lesion 10/02/2014 08/22/2018 LFT elevation 01/15/2014 08/22/2018 Gout 08/14/2009 08/22/2018 Chest pain 06/07/1997 08/22/2018 documented as of this encounter (statuses as of 09/28/2021) [facility] History of Past illness Narrative* Problem Noted Date Resolved Date Hypoglycemia 05/09/2020 05/09/2020 Lip lesion 10/02/2014 08/22/2018 LFT elevation 01/15/2014 08/22/2018 Gout 08/14/2009 08/22/2018 Chest pain 06/07/1997 08/22/2018 documented as of this encounter (statuses as of 09/28/2021) [facility] History of Past illness Narrative* Problem Noted Date Resolved Date Hypoglycemia 05/09/2020 05/09/2020 Lip lesion 10/02/2014 08/22/2018 LFT elevation 01/15/2014 08/22/2018 Gout 08/14/2009 08/22/2018 Chest pain 06/07/1997 08/22/2018 documented as of this encounter (statuses as of 09/29/2021) [facility] History of Past illness Narrative* Problem Noted Date Resolved Date Hypoglycemia 05/09/2020 05/09/2020 Lip lesion 10/02/2014 08/22/2018 LFT elevation 01/15/2014 08/22/2018 Gout 08/14/2009 08/22/2018 Chest pain 06/07/1997 08/22/2018 documented as of this encounter (statuses as of 09/30/2021) [facility] History of Past illness Narrative* Problem Noted Date Resolved Date Hypoglycemia 05/09/2020 05/09/2020 Lip lesion 10/02/2014 08/22/2018 LFT elevation 01/15/2014 08/22/2018 Gout 08/14/2009 08/22/2018 Chest pain 06/07/1997 08/22/2018 documented as of this encounter (statuses as of 09/30/2021) [facility] History of Past illness Narrative* Problem Noted Date Resolved Date Hypoglycemia 05/09/2020 05/09/2020 Lip lesion 10/02/2014 08/22/2018 LFT elevation 01/15/2014 08/22/2018 Gout 08/14/2009 08/22/2018 Chest pain 06/07/1997 08/22/2018 documented as of this encounter (statuses as of 10/01/2021) [facility] History of Past illness Narrative* Problem Noted Date Resolved Date Hypoglycemia 05/09/2020 05/09/2020 Lip lesion 10/02/2014 08/22/2018 LFT elevation 01/15/2014 08/22/2018 Gout 08/14/2009 08/22/2018 Chest pain 06/07/1997 08/22/2018 documented as of this encounter (statuses as of 10/02/2021) [facility] History of Past illness Narrative* Problem Noted Date Resolved Date Hypoglycemia 05/09/2020 05/09/2020 Lip lesion 10/02/2014 08/22/2018 LFT elevation 01/15/2014 08/22/2018 Gout 08/14/2009 08/22/2018 Chest pain 06/07/1997 08/22/2018 documented as of this encounter (statuses as of 10/02/2021) [facility] History of Past illness Narrative* Problem Noted Date Resolved Date Hypoglycemia 05/09/2020 05/09/2020 Lip lesion 10/02/2014 08/22/2018 LFT elevation 01/15/2014 08/22/2018 Gout 08/14/2009 08/22/2018 Chest pain 06/07/1997 08/22/2018 documented as of this encounter (statuses as of 10/07/2021) [address]29-2021 History of Past illness Narrative* Problem Noted Date Resolved Date Hypoglycemia 05/09/2020 05/09/2020 Lip lesion 10/02/2014 08/22/2018 LFT elevation 01/15/2014 08/22/2018 Gout 08/14/2009 08/22/2018 Chest pain 06/07/1997 08/22/2018 documented as of this encounter (statuses as of 10/08/2021) [address]29-2021 History of Past illness Narrative* Problem Noted Date Resolved Date Hypoglycemia 05/09/2020 05/09/2020 Lip lesion 10/02/2014 08/22/2018 LFT elevation 01/15/2014 08/22/2018 Gout 08/14/2009 08/22/2018 Chest pain 06/07/1997 08/22/2018 documented as of this encounter (statuses as of 10/13/2021) [address]29-2021 History of Past illness Narrative* Problem Noted Date Resolved Date Hypoglycemia 05/09/2020 05/09/2020 Lip lesion 10/02/2014 08/22/2018 LFT elevation 01/15/2014 08/22/2018 Gout 08/14/2009 08/22/2018 Chest pain 06/07/1997 08/22/2018 documented as of this encounter (statuses as of 10/22/2021) [address]29-2021 History of Past illness Narrative* Problem Noted Date Resolved Date Hypoglycemia 05/09/2020 05/09/2020 Lip lesion 10/02/2014 08/22/2018 LFT elevation 01/15/2014 08/22/2018 Gout 08/14/2009 08/22/2018 Chest pain 06/07/1997 08/22/2018 documented as of this encounter (statuses as of 11/03/2021) [facility] History of Past illness Narrative* Problem Noted Date Resolved Date Hypoglycemia 05/09/2020 05/09/2020 Lip lesion 10/02/2014 08/22/2018 LFT elevation 01/15/2014 08/22/2018 Gout 08/14/2009 08/22/2018 Chest pain 06/07/1997 08/22/2018 documented as of this encounter (statuses as of 11/03/2021) [address]29-2021 History of Past illness Narrative* Problem Noted Date Resolved Date Hypoglycemia 05/09/2020 05/09/2020 Lip lesion 10/02/2014 08/22/2018 LFT elevation 01/15/2014 08/22/2018 Gout 08/14/2009 08/22/2018 Chest pain 06/07/1997 08/22/2018 documented as of this encounter (statuses as of 11/05/2021) [address]29-2021 History of Past illness Narrative* Problem Noted Date Resolved Date Hypoglycemia 05/09/2020 05/09/2020 Lip lesion 10/02/2014 08/22/2018 LFT elevation 01/15/2014 08/22/2018 Gout 08/14/2009 08/22/2018 Chest pain 06/07/1997 08/22/2018 documented as of this encounter (statuses as of 11/05/2021) [address]29-2021 History of Past illness Narrative* Problem Noted Date Resolved Date Hypoglycemia 05/09/2020 05/09/2020 Lip lesion 10/02/2014 08/22/2018 LFT elevation 01/15/2014 08/22/2018 Gout 08/14/2009 08/22/2018 Chest pain 06/07/1997 08/22/2018 documented as of this encounter (statuses as of 11/11/2021) [facility]2021 History of Past illness Narrative* Problem Noted Date Resolved Date Hypoglycemia 05/09/2020 05/09/2020 Lip lesion 10/02/2014 08/22/2018 LFT elevation 01/15/2014 08/22/2018 Gout 08/14/2009 08/22/2018 Chest pain 06/07/1997 08/22/2018 documented as of this encounter (statuses as of 11/13/2021) [address]29-2021 History of Past illness Narrative* Problem Noted Date Resolved Date Hypoglycemia 05/09/2020 05/09/2020 Lip lesion 10/02/2014 08/22/2018 LFT elevation 01/15/2014 08/22/2018 Gout 08/14/2009 08/22/2018 Chest pain 06/07/1997 08/22/2018 documented as of this encounter (statuses as of 11/26/2021) [address]29-2021 History of Past illness Narrative* Problem Noted Date Resolved Date Hypoglycemia 05/09/2020 05/09/2020 Lip lesion 10/02/2014 08/22/2018 LFT elevation 01/15/2014 08/22/2018 Gout 08/14/2009 08/22/2018 Chest pain 06/07/1997 08/22/2018 documented as of this encounter (statuses as of 12/08/2021) [address]29-2021 History of Past illness Narrative* Problem Noted Date Resolved Date Hypoglycemia 05/09/2020 05/09/2020 Lip lesion 10/02/2014 08/22/2018 LFT elevation 01/15/2014 08/22/2018 Gout 08/14/2009 08/22/2018 Chest pain 06/07/1997 08/22/2018 documented as of this encounter (statuses as of 12/18/2021) [address]29-2021 History of Past illness Narrative* Problem Noted Date Resolved Date Hypoglycemia 05/09/2020 05/09/2020 Lip lesion 10/02/2014 08/22/2018 LFT elevation 01/15/2014 08/22/2018 Gout 08/14/2009 08/22/2018 Chest pain 06/07/1997 08/22/2018 documented as of this encounter (statuses as of 12/29/2021) [facility]2021 History of Past illness Narrative* Problem Noted Date Resolved Date Hypoglycemia 05/09/2020 05/09/2020 Lip lesion 10/02/2014 08/22/2018 LFT elevation 01/15/2014 08/22/2018 Gout 08/14/2009 08/22/2018 Chest pain 06/07/1997 08/22/2018 documented as of this encounter (statuses as of 01/07/2022) [address]29-2021 History of Past illness Narrative* Problem Noted Date Resolved Date Hypoglycemia 05/09/2020 05/09/2020 Lip lesion 10/02/2014 08/22/2018 LFT elevation 01/15/2014 08/22/2018 Gout 08/14/2009 08/22/2018 Chest pain 06/07/1997 08/22/2018 documented as of this encounter (statuses as of 01/14/2022) [address]29-2021 History of Past illness Narrative* Problem Noted Date Resolved Date Hypoglycemia 05/09/2020 05/09/2020 Lip lesion 10/02/2014 08/22/2018 LFT elevation 01/15/2014 08/22/2018 Gout 08/14/2009 08/22/2018 Chest pain 06/07/1997 08/22/2018 documented as of this encounter (statuses as of 01/22/2022) [address]29-2021 History of Past illness Narrative* Problem Noted Date Resolved Date Hypoglycemia 05/09/2020 05/09/2020 Lip lesion 10/02/2014 08/22/2018 LFT elevation 01/15/2014 08/22/2018 Gout 08/14/2009 08/22/2018 Chest pain 06/07/1997 08/22/2018 documented as of this encounter (statuses as of 01/28/2022) [address]29-2021 History of Past illness Narrative* Problem Noted Date Resolved Date Hypoglycemia 05/09/2020 05/09/2020 Lip lesion 10/02/2014 08/22/2018 LFT elevation 01/15/2014 08/22/2018 Gout 08/14/2009 08/22/2018 Chest pain 06/07/1997 08/22/2018 documented as of this encounter (statuses as of 01/28/2022) [facility]01-29-2021 History of Past illness Narrative* Problem Noted Date Resolved Date Hypoglycemia 05/09/2020 05/09/2020 Lip lesion 10/02/2014 08/22/2018 LFT elevation 01/15/2014 08/22/2018 Gout 08/14/2009 08/22/2018 Chest pain 06/07/1997 08/22/2018 documented as of this encounter (statuses as of 02/04/2022) [facility]01-29-2021 History of Past illness Narrative* Problem Noted Date Resolved Date Hypoglycemia 05/09/2020 05/09/2020 Lip lesion 10/02/2014 08/22/2018 LFT elevation 01/15/2014 08/22/2018 Gout 08/14/2009 08/22/2018 Chest pain 06/07/1997 08/22/2018 documented as of this encounter (statuses as of 04/16/2022) [facility]01-29-2021 History of Past illness Narrative* Problem Noted Date Resolved Date Hypoglycemia 05/09/2020 05/09/2020 Lip lesion 10/02/2014 08/22/2018 LFT elevation 01/15/2014 08/22/2018 Gout 08/14/2009 08/22/2018 Chest pain 06/07/1997 08/22/2018 documented as of this encounter (statuses as of 04/26/2022) [address]29-2021 History of Past illness Narrative* Problem Noted Date Resolved Date Hypoglycemia 05/09/2020 05/09/2020 Lip lesion 10/02/2014 08/22/2018 LFT elevation 01/15/2014 08/22/2018 Gout 08/14/2009 08/22/2018 Chest pain 06/07/1997 08/22/2018 documented as of this encounter (statuses as of 05/19/2022) [address]29-2021 History of Past illness Narrative* Problem Noted Date Resolved Date Hypoglycemia 05/09/2020 05/09/2020 Lip lesion 10/02/2014 08/22/2018 LFT elevation 01/15/2014 08/22/2018 Gout 08/14/2009 08/22/2018 Chest pain 06/07/1997 08/22/2018 documented as of this encounter (statuses as of 05/21/2022) [address]29-2021 History of Past illness Narrative* Problem Noted Date Resolved Date Hypoglycemia 05/09/2020 05/09/2020 Lip lesion 10/02/2014 08/22/2018 LFT elevation 01/15/2014 08/22/2018 Gout 08/14/2009 08/22/2018 Chest pain 06/07/1997 08/22/2018 documented as of this encounter (statuses as of 06/29/2022) [address]29-2021 History of Past illness Narrative* Problem Noted Date Resolved Date Hypoglycemia 05/09/2020 05/09/2020 Lip lesion 10/02/2014 08/22/2018 LFT elevation 01/15/2014 08/22/2018 Gout 08/14/2009 08/22/2018 Chest pain 06/07/1997 08/22/2018 documented as of this encounter (statuses as of 06/29/2022) [address]29-2021 History of Past illness Narrative* Problem Noted Date Resolved Date Hypoglycemia 05/09/2020 05/09/2020 Lip lesion 10/02/2014 08/22/2018 LFT elevation 01/15/2014 08/22/2018 Gout 08/14/2009 08/22/2018 Chest pain 06/07/1997 08/22/2018 documented as of this encounter (statuses as of 07/05/2022) [address]29-2021 History of Past illness Narrative* Problem Noted Date Resolved Date Hypoglycemia 05/09/2020 05/09/2020 Lip lesion 10/02/2014 08/22/2018 LFT elevation 01/15/2014 08/22/2018 Gout 08/14/2009 08/22/2018 Chest pain 06/07/1997 08/22/2018 documented as of this encounter (statuses as of 07/16/2022) [address]29-2021 History of Past illness Narrative* Problem Noted Date Resolved Date Hypoglycemia 05/09/2020 05/09/2020 Lip lesion 10/02/2014 08/22/2018 LFT elevation 01/15/2014 08/22/2018 Gout 08/14/2009 08/22/2018 Chest pain 06/07/1997 08/22/2018 documented as of this encounter (statuses as of 07/26/2022) [address]29-2021 History of Past illness Narrative* Problem Noted Date Resolved Date Hypoglycemia 05/09/2020 05/09/2020 Lip lesion 10/02/2014 08/22/2018 LFT elevation 01/15/2014 08/22/2018 Gout 08/14/2009 08/22/2018 Chest pain 06/07/1997 08/22/2018 documented as of this encounter (statuses as of 09/16/2022) [facility]01-29-2021 History of Past illness Narrative* Problem Noted Date Diagnosed Date Resolved Date Hypoglycemia 05/09/2020 05/09/2020 Lip lesion 10/02/2014 08/22/2018 LFT elevation 01/15/2014 08/22/2018 Gout 08/14/2009 08/22/2018 Chest pain 06/07/1997 08/22/2018 documented as of this encounter (statuses as of 11/18/2022) [facility]01-29-2021 History of Past illness Narrative* Problem Noted Date Diagnosed Date Resolved Date Hypoglycemia 05/09/2020 05/09/2020 Lip lesion 10/02/2014 08/22/2018 LFT elevation 01/15/2014 08/22/2018 Gout 08/14/2009 08/22/2018 Chest pain 06/07/1997 08/22/2018 documented as of this encounter (statuses as of 12/18/2022) [address]29-2021 History of Past illness Narrative* Problem Noted Date Diagnosed Date Resolved Date Hypoglycemia 05/09/2020 05/09/2020 Lip lesion 10/02/2014 08/22/2018 LFT elevation 01/15/2014 08/22/2018 Gout 08/14/2009 08/22/2018 Chest pain 06/07/1997 08/22/2018 documented as of this encounter (statuses as of 01/19/2023) [facility]01-29-2021 History of Past illness Narrative* Problem Noted Date Diagnosed Date Resolved Date Hypoglycemia 05/09/2020 05/09/2020 Lip lesion 10/02/2014 08/22/2018 LFT elevation 01/15/2014 08/22/2018 Gout 08/14/2009 08/22/2018 Chest pain 06/07/1997 08/22/2018 documented as of this encounter (statuses as of 2023) [facility]-29-2021 History of Past illness Narrative* Problem Noted Date Diagnosed Date Resolved Date Hypoglycemia 05/09/2020 05/09/2020 Lip lesion 10/02/2014 08/22/2018 LFT elevation 01/15/2014 08/22/2018 Gout 08/14/2009 08/22/2018 Chest pain 06/07/1997 08/22/2018 documented as of this encounter (statuses as of 02/12/2023) [facility] note* Diagnosis 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 (HCC)- Primary Atrial fibrillation [facility] Diagnosis assisted current use of anticoagulant- Primary Long-term (current) use of anticoagulants 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 (HCC) Atrial fibrillation [facility] Diagnosis Essential hypertension- Primary Unspecified essential hypertension 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 (HCC) Atrial fibrillation Hyperglycemia Other abnormal glucose Gouty arthropathy Gouty arthropathy, unspecified Mixed hyperlipidemia [facility] encounter [facility]* Diagnosis 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 (HCC)- Primary Atrial fibrillation Essential hypertension Unspecified essential hypertension Mixed hyperlipidemia Encounter for monitoring flecainide therapy 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 Long-term (current) use of anticoagulants S/P ablation of atrial fibrillation Other postprocedural status [facility] Diagnosis AF (paroxysmal atrial fibrillation) (HCC)- Primary Atrial fibrillation [facility] Diagnosis 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 (HCC)- Primary Atrial fibrillation 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 (HCC) Atrial fibrillation [facility]* Diagnosis Persistent atrial fibrillation (HCC)- Primary Atrial fibrillation 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 (HCC) Atrial fibrillation [facility] Diagnosis AF (paroxysmal atrial fibrillation) (HCC)- Primary Atrial [facility] Other hyper[facility] Diagnosis 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 (HCC) Atrial fibrillation Gouty arthropathy Gouty arthropathy, unspecified [facility] Diagnosis 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 (HCC)- Primary Atrial fibrillation S/P ablation of atrial fibrillation Other postprocedural status Essential hypertension Unspecified essential hypertension 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 Long-term (current) use of anticoagulants [facility] Diagnosis 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 (HCC) Atrial fibrillation [facility] 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 (HCC) Atrial [facility] Diagnosis Lesion of subcutaneous tissue- Primary Unspecified disorder of skin and subcutaneous tissue Umbilical hernia without obstruction or gangrene Umbilical hernia without mention of obstruction or gangrene [facility] Diagnosis Upper back pain- Primary [facility] Diagnosis DDD (degenerative disc disease), thoracic- Primary Degeneration of thoracic or thoracolumbar intervertebral disc Syringomyelia and syringobulbia (HCC) Syringomyelia and syringobulbia [facility] Diagnosis Myofascial pain syndrome of thoracic spine- Primary DDD (degenerative disc disease), thoracic Degeneration of thoracic or thoracolumbar intervertebral disc Syringomyelia and syringobulbia (HCC) Syringomyelia and syringobulbia [facility] Diagnosis 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 (HCC)- Primary Atrial fibrillation Screening for colon cancer Special screening for malignant neoplasms, colon Mixed hyperlipidemia Syringomyelia and syringobulbia (HCC) Syringomyelia and syringobulbia Essential hypertension Unspecified essential hypertension S/P ablation of atrial fibrillation Other postprocedural status Hyperglycemia Other abnormal glucose Gouty arthropathy Gouty arthropathy, unspecified [facility] Diagnosis Other hyperlipidemia [facility] Diagnosis 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 (HCC) Atrial fibrillation Gouty arthropathy Gouty arthropathy, unspecified [facility] Diagnosis 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 (HCC)- Primary Atrial fibrillation Mixed hyperlipidemia Essential hypertension Unspecified essential hypertension S/P ablation of atrial fibrillation Other postprocedural status Gastroesophageal reflux disease without esophagitis Esophageal reflux Gouty arthropathy Gouty arthropathy, unspecified Hyperglycemia Other abnormal glucose Need for vaccination Need for prophylactic vaccination and inoculation against unspecified single disease Screening for prostate cancer Special screening for malignant neoplasm of prostate [facility] Diagnosis Other hyperlipidemia documented in this encounter [facility] note* Diagnosis 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 (HCC) Atrial fibrillation Gouty arthropathy Gouty arthropathy, unspecified documented in this encounter [facility] note* Diagnosis Upper back pain documented in this encounter [facility] note* Diagnosis Chest wall pain Painful respiration documented in this encounter [facility] note* Diagnosis SUTTON (dyspnea on exertion)- Primary Other dyspnea and respiratory abnormality Palpitations 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 (HCC) Atrial fibrillation S/P ablation of atrial fibrillation Other postprocedural status Essential hypertension Unspecified essential hypertension 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 Long-term (current) use of anticoagulants documented in this encounter [facility] for referral (narrative)* Outpatient Procedure (Routine) - Pending Review Specialty Diagnoses / Procedures Referred By Sabina duggan Referred To Contact [facility] [place] Diagnoses 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 (HCC) assisted current use of anticoagulant Procedures ECG COMPLETE ECG ROUTINE ECG W/LEAST 12 LDS W/I&R Deirdre Markham APRN.CNP [address] [address] [facility] [place] [facility] [address] [address] Referral ID Status Reason Start Date Expiration Date Visits Requested Visits Authorized [id number] Pending Review Auto-Generat ed Referral 10/07/2021 07/07/2022 1 1 * Outpatient Procedure (Routine) - Pending Review Specialty Diagnoses / Procedures Referred By Sabina duggan Referred To Contact [facility] [place] Diagnoses 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 Procedures ECHO ECHO TTHRC R-T 2D W/WOM-MODE COMPL SPEC&COLR D Deirdre Markham APRN.CNP [address] [address] [facility] [place] [facility] [address] [address] Referral ID Status Reason Start Date Expiration Date Visits Requested Visits Authorized [id number] Pending Review Auto-Generat ed Referral 10/07/2021 07/07/2022 1 1 * MRI/CT (Routine) - Pending Review Specialty Diagnoses / Procedures Referred By Contac t Referred To Contact CT IMAGING Diagnoses 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 (HCC) assisted current use of anticoagulant Procedures CT PULMONARY VEIN W IVCON CT HEART CONTRAST EVAL CARDIAC STRUCTURE&MORPH Deirdre Markham APRN.CNP [address] [facility] [address] [place] [id number] Imaging Referral ID Status Reason Start Date Expiration Date Visits Requested Visits Authorized [id number] Pending Review Auto-Generat ed Referral 10/07/2021 08/06/2022 1 1 [facility] for referral (narrative)* Outpatient Procedure (Routine) - Closed Specialty Diagnoses / Procedures Referred By Contac t Referred To Contact [facility] [place] Diagnoses AF (paroxysmal atrial fibrillation) (HCC) Procedures ECG COMPLETE ECG ROUTINE ECG W/LEAST 12 LDS W/I&R Darin Marte MD [address] [place] [id number] [facility] [place] [address] Referral ID Status Reason Start Date Expiration Date V isits Requested Visits Authorized [id number] Closed Auto-Generate d Referral 09/28/2021 04/10/2022 1 1 [facility] for referral (narrative)* Outpatient Procedure (Routine) - Pending Review Specialty Diagnoses / Procedures Referred By Contac t Referred To Contact [facility] [place] Diagnoses Persistent atrial fibrillation (HCC) Procedures ECG COMPLETE ECG ROUTINE ECG W/LEAST 12 LDS W/I&R Neetu Stuart APRN.CNP [address] [place] [address] [facility] [address] [place] [address] Referral ID Status Reason Start Date Expiration Date Visits Requested Visits Authorized [id number] Pending Review Auto-Generat ed Referral 10/07/2021 10/07/2022 1 1 [facility] for referral (narrative)* Diagnostic Procedure Only (Routine) - Pending Review Specialty Diagnoses / Procedures Referred By Contac t Referred To Contact XR IMAGING Diagnoses Upper back pain Procedures XR THORACIC GENERAL 3V AP/LAT/SWIMMERS RADEX [facility] 3 VIEWS Parish Crouch MD [address] [place] [id number] Xr Imaging Referral ID Status Reason Start Date Expiration Date Visits Requested Visits Authorized [id number] Pending Review Auto-Generat ed Referral 07/05/2022 08/04/2023 1 1 [facility] for referral (narrative)* Diagnostic Procedure Only (Routine) - Closed Specialty Diagnoses / Procedures Referred By Contac t Referred To Contact XR IMAGING Diagnoses Upper back pain Procedures XR THORACIC GENERAL 3V AP/LAT/SWIMMERS RADEX SPINE THORACIC 3 VIEWS Parish Crouch MD [address] [place] [address] Xr Imaging [id number] Referral ID Status Reason Start Date Expiration Date V isits Requested Visits Authorized [id number] Closed Auto-Generate d Referral 07/10/2022 04/10/2023 1 1 [facility] for referral (narrative)* Diagnostic Procedure Only (Routine) - Pending Review Specialty Diagnoses / Procedures Referred By Contac t Referred To Contact MOLECULAR & FUNCTIONAL IMAGING Diagnoses SUTTON (dyspnea on exertion) Palpitations 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 (HCC) S/P ablation of atrial fibrillation Essential hypertension Mixed hyperlipidemia assisted current use of anticoagulant Procedures NM CARDIAC PERF STRESS/EXERCISE MYOCARDIAL SPECT MULTIPLE STUDIES Jo, Elvin Huber, DO [address] [place] [address] Molecular & Functional Imaging [address] [place] [id number] Referral ID Status Reason Start Date Expiration Date Visits Requested Visits Authorized [id number] Pending Review Auto-Generat ed Referral 03/02/2025 1 1 [facility] for visit Narrative* Diagnostic Procedure Only (Routine) - Closed Specialty Diagnoses / Procedures Referred By Contac t Referred To Contact XR IMAGING Diagnoses Upper back pain Procedures XR THORACIC GENERAL 3V AP/LAT/SWIMMERS RADEX SPINE THORACIC 3 VIEWS Parish Crouch MD [address] [place] [address] [place] [address] Referral ID Status Reason Start Date Expiration Date V isits Requested Visits Authorized [id number] Closed Auto-Generate d Referral 07/10/2022 04/10/2023 1 1 [facility] Summary Purpose Family History No Family History Records FoundNo Family History Records FoundNo Family History Records Found Advance Directives Documents on File Type 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 Advance Directive(s) 06/30/2021 9:53 AM Advance Directive(s) 06/08/2021 2:56 PM Advance Directive(s) 05/06/2021 12:07 PM Advance Directive(s) 09/15/2017 9:41 AM Documents on File Type 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 Advance Directive(s) 06/30/2021 9:53 AM Advance Directive(s) 06/08/2021 2:56 PM Advance Directive(s) 05/06/2021 12:07 PM Advance Directive(s) 09/15/2017 9:41 AM Documents on File Type 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 Advance Directive(s) 09/30/2021 9:36 AM Advance Directive(s) 06/30/2021 9:53 AM Advance Directive(s) 06/08/2021 2:56 PM Advance Directive(s) 05/06/2021 12:07 PM Advance Directive(s) 09/15/2017 9:41 AM Documents on File Type 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 Advance Directive(s) 09/30/2021 9:36 AM Advance Directive(s) 06/30/2021 9:53 AM Advance Directive(s) 06/08/2021 2:56 PM Advance Directive(s) 05/06/2021 12:07 PM Advance Directive(s) 09/15/2017 9:41 AM Documents on File Type 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 Advance Directive(s) 10/22/2021 3:29 PM Advance Directive(s) 09/30/2021 9:36 AM Advance Directive(s) 06/30/2021 9:53 AM Advance Directive(s) 06/08/2021 2:56 PM Advance Directive(s) 05/06/2021 12:07 PM Advance Directive(s) 09/15/2017 9:41 AM Documents on File Type 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 Advance Directive(s) 11/04/2021 9:39 AM Advance Directive(s) 10/22/2021 3:29 PM Advance Directive(s) 09/30/2021 9:36 AM Advance Directive(s) 06/30/2021 9:53 AM Advance Directive(s) 06/08/2021 2:56 PM Advance Directive(s) 05/06/2021 12:07 PM Advance Directive(s) 09/15/2017 9:41 AM Reason for Referral Specialty Diagnoses / Procedures Referred By Contac t Referred To Contact [facility] / INITIAL DEPT Diagnoses DDD (degenerative disc disease), thoracic Syringomyelia and syringobulbia (HCC) Procedures CONSULT TO [facility] OFFICE/OUTPATIENT NEW HIGH MDM 60-74 MINUTES OFFICE/OUTPATIENT NEW MODERATE MDM 45-59 MINUTES Parish Crouch MD [address] [place] [address] Initial Department Referral ID Status Reason Start Date Expiration Date V isits Requested Visits Authorized [id number] Authorized 07/26/2022 04/10/2023 1 1 Specialty Diagnoses / Procedures Referred By Contac t Referred To Contact [facility] Diagnoses DDD (degenerative disc disease), 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 Procedures CONSULT TO PHYSICAL THERAPY PHYSICAL THERAPY EVALUATION HIGH COMPLEX 45 MINS Donnell Mark MD [address] [facility] [id number] [place] [address] [facility] [address] [place] [address] Referral ID Status Reason Start Date Expiration Date Visits Requested Visits Authorized [id number] Pending Review Auto-Generat ed Referral 07/26/2022 07/26/2023 1 1 Specialty Diagnoses / Procedures Referred By Contac t Referred To Contact General Surgery Diagnoses Screening for colon cancer Procedures CONSULT TO GENERAL SURGERY OFFICE/OUTPATIENT [facility] 60-74 MINUTES Parish Crouch MD [address] [place] [address] Referral ID Status Reason Start Date Expiration Date Visits Requested Visits Authorized [id number] Pending Review PCP Requested Referral 09/15/2022 09/15/2023 1 1 Specialty Diagnoses / Procedures Referred By Contac t Referred To Contact XR IMAGING Diagnoses Chest wall pain Procedures XR RIBS/CHEST 3V AP RIB/OBLS/CXR LEFT RADEX RIBS UNI W/POSTEROANT CH MINIMUM 3 VIEWS Parish Crouch MD [address] [place] [address] [place] [address] Referral ID Status Reason Start Date Expiration Date V isits Requested Visits Authorized [id number] Closed Auto-Generate d Referral 06/22/2022 04/10/2023 1 1 Additional Source Comments (unrecognized sect ion and content) No Status Records FoundNo Status Records FoundNo Status Records Found INFORMATION SOURCE (unrecogn ized section and content) DATE CREATED AUTHOR 10/04/2017 [facility] DATE CREATED AUTHOR AUTHOR'S ORGANIZ ATION 05/12/2020 [facility] DATE CREATED AUTHOR AUTHOR'S ORGANIZ ATION 01/18/2024 [facility] Source Comments (unrecognize d section and content) In the event this informatio n is protected by the Federal Confidentiality of Alcohol and Drug Abuse Patient Records regulations: The Federal rules restrict any use of the information to criminally investigate or prosecute any alcohol or drug abuse patient.[facility] event this information is protected by the Federal Confidentiality of Alcohol and Drug Abuse Patient Records regulations: The Federal rules restrict any use of the information to criminally investigate or prosecute any alcohol or drug abuse patient.[facility] the event this information is protected by the Federal Confidentiality of Alcohol and Drug Abuse Patient Records regulations: The Federal rules restrict any use of the information to criminally investigate or prosecute any alcohol or drug abuse patient.[facility] the event this information is protected by the Federal Confidentiality of Alcohol and Drug Abuse Patient Records regulations: The Federal rules restrict any use of the information to criminally investigate or prosecute any alcohol or drug abuse patient.[facility] the event this information is protected by the Federal Confidentiality of Alcohol and Drug Abuse Patient Records regulations: The Federal rules restrict any use of the information to criminally investigate or prosecute any alcohol or drug abuse patient.[facility] the event this information is protected by the Federal Confidentiality of Alcohol and Drug Abuse Patient Records regulations: The Federal rules restrict any use of the information to criminally investigate or prosecute any alcohol or drug abuse patient.[facility] the event this information is protected by the Federal Confidentiality of Alcohol and Drug Abuse Patient Records regulations: The Federal rules restrict any use of the information to criminally investigate or prosecute any alcohol or drug abuse patient.[facility] the event this information is protected by the Federal Confidentiality of Alcohol and Drug Abuse Patient Records regulations: The Federal rules restrict any use of the information to criminally investigate or prosecute any alcohol or drug abuse patient.[facility] [facility] PrebleIn the event this information is protected by the Federal Confidentiality of Alcohol and Drug Abuse Patient Records regulations: The Federal rules restrict any use of the information to criminally investigate or prosecute any alcohol or drug abuse patient.[facility] PrebleIn the event this information is protected by the Federal Confidentiality of Alcohol and Drug Abuse Patient Records regulations: The Federal rules restrict any use of the information to criminally investigate or prosecute any alcohol or drug abuse patient.[facility] PrebleIn the event this information is protected by the Federal Confidentiality of Alcohol and Drug Abuse Patient Records regulations: The Federal rules restrict any use of the information to criminally investigate or prosecute any alcohol or drug abuse patient.[facility] PrebleIn the event this information is protected by the Federal Confidentiality of Alcohol and Drug Abuse Patient Records regulations: The Federal rules restrict any use of the information to criminally investigate or prosecute any alcohol or drug abuse patient.[facility] PrebleIn the event this information is protected by the Federal Confidentiality of Alcohol and Drug Abuse Patient Records regulations: The Federal rules restrict any use of the information to criminally investigate or prosecute any alcohol or drug abuse patient.[facility] PrebleIn the event this information is protected by the Federal Confidentiality of Alcohol and Drug Abuse Patient Records regulations: The Federal rules restrict any use of the information to criminally investigate or prosecute any alcohol or drug abuse patient.[facility] PrebleIn the event this information is protected by the Federal Confidentiality of Alcohol and Drug Abuse Patient Records regulations: The Federal rules restrict any use of the information to criminally investigate or prosecute any alcohol or drug abuse patient.[facility] PrebleIn the event this information is protected by the Federal Confidentiality of Alcohol and Drug Abuse Patient Records regulations: The Federal rules restrict any use of the information to criminally investigate or prosecute any alcohol or drug abuse patient.[facility] PrebleIn the event this information is protected by the Federal Confidentiality of Alcohol and Drug Abuse Patient Records regulations: The Federal rules restrict any use of the information to criminally investigate or prosecute any alcohol or drug abuse patient.[facility] PrebleIn the event this information is protected by the Federal Confidentiality of Alcohol and Drug Abuse Patient Records regulations: The Federal rules restrict any use of the information to criminally investigate or prosecute any alcohol or drug abuse patient.[facility] PrebleIn the event this information is protected by the Federal Confidentiality of Alcohol and Drug Abuse Patient Records regulations: The Federal rules restrict any use of the information to criminally investigate or prosecute any alcohol or drug abuse patient.[facility] PrebleIn the event this information is protected by the Federal Confidentiality of Alcohol and Drug Abuse Patient Records regulations: The Federal rules restrict any use of the information to criminally investigate or prosecute any alcohol or drug abuse patient.[facility] PrebleIn the event this information is protected by the Federal Confidentiality of Alcohol and Drug Abuse Patient Records regulations: The Federal rules restrict any use of the information to criminally investigate or prosecute any alcohol or drug abuse patient.[facility] PrebleIn the event this information is protected by the Federal Confidentiality of Alcohol and Drug Abuse Patient Records regulations: The Federal rules restrict any use of the information to criminally investigate or prosecute any alcohol or drug abuse patient.[facility] PrebleIn the event this information is protected by the Federal Confidentiality of Alcohol and Drug Abuse Patient Records regulations: The Federal rules restrict any use of the information to criminally investigate or prosecute any alcohol or drug abuse patient.[facility] PrebleIn the event this information is protected by the Federal Confidentiality of Alcohol and Drug Abuse Patient Records regulations: The Federal rules restrict any use of the information to criminally investigate or prosecute any alcohol or drug abuse patient.[facility] PrebleIn the event this information is protected by the Federal Confidentiality of Alcohol and Drug Abuse Patient Records regulations: The Federal rules restrict any use of the information to criminally investigate or prosecute any alcohol or drug abuse patient.[facility] PrebleIn the event this information is protected by the Federal Confidentiality of Alcohol and Drug Abuse Patient Records regulations: The Federal rules restrict any use of the information to criminally investigate or prosecute any alcohol or drug abuse patient.[facility] PrebleIn the event this information is protected by the Federal Confidentiality of Alcohol and Drug Abuse Patient Records regulations: The Federal rules restrict any use of the information to criminally investigate or prosecute any alcohol or drug abuse patient.[facility] PrebleIn the event this information is protected by the Federal Confidentiality of Alcohol and Drug Abuse Patient Records regulations: The Federal rules restrict any use of the information to criminally investigate or prosecute any alcohol or drug abuse patient.[facility] PrebleIn the event this information is protected by the Federal Confidentiality of Alcohol and Drug Abuse Patient Records regulations: The Federal rules restrict any use of the information to criminally investigate or prosecute any alcohol or drug abuse patient.[facility] PrebleIn the event this information is protected by the Federal Confidentiality of Alcohol and Drug Abuse Patient Records regulations: The Federal rules restrict any use of the information to criminally investigate or prosecute any alcohol or drug abuse patient.[facility] PrebleIn the event this information is protected by the Federal Confidentiality of Alcohol and Drug Abuse Patient Records regulations: The Federal rules restrict any use of the information to criminally investigate or prosecute any alcohol or drug abuse patient.[facility] PrebleIn the event this information is protected by the Federal Confidentiality of Alcohol and Drug Abuse Patient Records regulations: The Federal rules restrict any use of the information to criminally investigate or prosecute any alcohol or drug abuse patient.[facility] PrebleIn the event this information is protected by the Federal Confidentiality of Alcohol and Drug Abuse Patient Records regulations: The Federal rules restrict any use of the information to criminally investigate or prosecute any alcohol or drug abuse patient.[facility] PrebleIn the event this information is protected by the Federal Confidentiality of Alcohol and Drug Abuse Patient Records regulations: The Federal rules restrict any use of the information to criminally investigate or prosecute any alcohol or drug abuse patient.[facility] PrebleIn the event this information is protected by the Federal Confidentiality of Alcohol and Drug Abuse Patient Records regulations: The Federal rules restrict any use of the information to criminally investigate or prosecute any alcohol or drug abuse patient.[facility] PrebleIn the event this information is protected by the Federal Confidentiality of Alcohol and Drug Abuse Patient Records regulations: The Federal rules restrict any use of the information to criminally investigate or prosecute any alcohol or drug abuse patient.[facility] PrebleIn the event this information is protected by the Federal Confidentiality of Alcohol and Drug Abuse Patient Records regulations: The Federal rules restrict any use of the information to criminally investigate or prosecute any alcohol or drug abuse patient.[facility] PrebleIn the event this information is protected by the Federal Confidentiality of Alcohol and Drug Abuse Patient Records regulations: The Federal rules restrict any use of the information to criminally investigate or prosecute any alcohol or drug abuse patient.[facility] PrebleIn the event this information is protected by the Federal Confidentiality of Alcohol and Drug Abuse Patient Records regulations: The Federal rules restrict any use of the information to criminally investigate or prosecute any alcohol or drug abuse patient.[facility] PrebleIn the event this information is protected by the Federal Confidentiality of Alcohol and Drug Abuse Patient Records regulations: The Federal rules restrict any use of the information to criminally investigate or prosecute any alcohol or drug abuse patient.[facility] PrebleIn the event this information is protected by the Federal Confidentiality of Alcohol and Drug Abuse Patient Records regulations: The Federal rules restrict any use of the information to criminally investigate or prosecute any alcohol or drug abuse patient.[facility] PrebleIn the event this information is protected by the Federal Confidentiality of Alcohol and Drug Abuse Patient Records regulations: The Federal rules restrict any use of the information to criminally investigate or prosecute any alcohol or drug abuse patient.[facility] PrebleIn the event this information is protected by the Federal Confidentiality of Alcohol and Drug Abuse Patient Records regulations: The Federal rules restrict any use of the information to criminally investigate or prosecute any alcohol or drug abuse patient.[facility] PrebleIn the event this information is protected by the Federal Confidentiality of Alcohol and Drug Abuse Patient Records regulations: The Federal rules restrict any use of the information to criminally investigate or prosecute any alcohol or drug abuse patient.[facility] PrebleIn the event this information is protected by the Federal Confidentiality of Alcohol and Drug Abuse Patient Records regulations: The Federal rules restrict any use of the information to criminally investigate or prosecute any alcohol or drug abuse patient.[facility] PrebleIn the event this information is protected by the Federal Confidentiality of Alcohol and Drug Abuse Patient Records regulations: The Federal rules restrict any use of the information to criminally investigate or prosecute any alcohol or drug abuse patient.[facility] PrebleIn the event this information is protected by the Federal Confidentiality of Alcohol and Drug Abuse Patient Records regulations: The Federal rules restrict any use of the information to criminally investigate or prosecute any alcohol or drug abuse patient.[facility] PrebleIn the event this information is protected by the Federal Confidentiality of Alcohol and Drug Abuse Patient Records regulations: The Federal rules restrict any use of the information to criminally investigate or prosecute any alcohol or drug abuse patient.[facility] PrebleIn the event this information is protected by the Federal Confidentiality of Alcohol and Drug Abuse Patient Records regulations: The Federal rules restrict any use of the information to criminally investigate or prosecute any alcohol or drug abuse patient.[facility] PrebleIn the event this information is protected by the Federal Confidentiality of Alcohol and Drug Abuse Patient Records regulations: The Federal rules restrict any use of the information to criminally investigate or prosecute any alcohol or drug abuse patient.[facility] PrebleIn the event this information is protected by the Federal Confidentiality of Alcohol and Drug Abuse Patient Records regulations: The Federal rules restrict any use of the information to criminally investigate or prosecute any alcohol or drug abuse patient.[facility] PrebleIn the event this information is protected by the Federal Confidentiality of Alcohol and Drug Abuse Patient Records regulations: The Federal rules restrict any use of the information to criminally investigate or prosecute any alcohol or drug abuse patient.[facility] PrebleIn the event this information is protected by the Federal Confidentiality of Alcohol and Drug Abuse Patient Records regulations: The Federal rules restrict any use of the information to criminally investigate or prosecute any alcohol or drug abuse patient.[facility] PrebleIn the event this information is protected by the Federal Confidentiality of Alcohol and Drug Abuse Patient Records regulations: The Federal rules restrict any use of the information to criminally investigate or prosecute any alcohol or drug abuse patient.[facility] PrebleIn the event this information is protected by the Federal Confidentiality of Alcohol and Drug Abuse Patient Records regulations: The Federal rules restrict any use of the information to criminally investigate or prosecute any alcohol or drug abuse patient.[facility]bleIn the event this information is protected by the Federal Confidentiality of Alcohol and Drug Abuse Patient Records regulations: The Federal rules restrict any use of the information to criminally investigate or prosecute any alcohol or drug abuse patient.[facility] PrebleIn the event this information is protected by the Federal Confidentiality of Alcohol and Drug Abuse Patient Records regulations: The Federal rules restrict any use of the information to criminally investigate or prosecute any alcohol or drug abuse patient.[facility] PrebleIn the event this information is protected by the Federal Confidentiality of Alcohol and Drug Abuse Patient Records regulations: The Federal rules restrict any use of the information to criminally investigate or prosecute any alcohol or drug abuse patient.[facility] PrebleIn the event this information is protected by the Federal Confidentiality of Alcohol and Drug Abuse Patient Records regulations: The Federal rules restrict any use of the information to criminally investigate or prosecute any alcohol or drug abuse patient.[facility] PrebleIn the event this information is protected by the Federal Confidentiality of Alcohol and Drug Abuse Patient Records regulations: The Federal rules restrict any use of the information to criminally investigate or prosecute any alcohol or drug abuse patient.[facility]bleIn the event this information is protected by the Federal Confidentiality of Alcohol and Drug Abuse Patient Records regulations: The Federal rules restrict any use of the information to criminally investigate or prosecute any alcohol or drug abuse patient.[facility] PrebleIn the event this information is protected by the Federal Confidentiality of Alcohol and Drug Abuse Patient Records regulations: The Federal rules restrict any use of the information to criminally investigate or prosecute any alcohol or drug abuse patient.[facility] PrebleIn the event this information is protected by the Federal Confidentiality of Alcohol and Drug Abuse Patient Records regulations: The Federal rules restrict any use of the information to criminally investigate or prosecute any alcohol or drug abuse patient.[facility] PrebleIn the event this information is protected by the Federal Confidentiality of Alcohol and Drug Abuse Patient Records regulations: The Federal rules restrict any use of the information to criminally investigate or prosecute any alcohol or drug abuse patient.[facility] PrebleIn the event this information is protected by the Federal Confidentiality of Alcohol and Drug Abuse Patient Records regulations: The Federal rules restrict any use of the information to criminally investigate or prosecute any alcohol or drug abuse patient.[facility] PrebleIn the event this information is protected by the Federal Confidentiality of Alcohol and Drug Abuse Patient Records regulations: The Federal rules restrict any use of the information to criminally investigate or prosecute any alcohol or drug abuse patient.[facility] Reason for Visit (unrecogniz ed section and content) Reason Comments Cardiology Follow Up No issues Specialty Diagnoses / Procedures Referred By Sabina duggan Referred To Contact Cardiology / [facility] Diagnoses 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 (HCC) Essential hypertension Mixed hyperlipidemia Encounter for monitoring flecainide therapy Procedures OFFICE/OUTPATIENT ESTABLISHED MOD MDM 30-39 MIN EST Elvin Barragan Huber, DO [address] [place] [address] Elvin Vaca Huber, DO [address] [place] [address] Referral ID Status Reason Start Date Expiration Date V isits Requested Visits Authorized [id number] Authorized 08/20/2021 08/20/2022 4 4 Reason Comments transmitter 90 days - box Reason Comments 6 Month Exam Specialty Diagnoses / Procedures Referred By Sabina duggan Referred To Contact Family Practice / FAMILY MEDICINE Diagnoses 6 month follow up Procedures OFFICE/OUTPATIENT ESTABLISHED MOD MDM 30-39 MIN 4C EST Parish Crouch MD [facility] [place] [address] Parish Crouch MD [address] [place], [place] [id number] Referral ID Status Reason Start Date Expiration Date Visits Re quested Visits Authorized [id number] Closed 04/11/2021 04/10/2022 1 1 Reason Comments Cardiology Follow Up No concerns Reason Comments Patient Update Reason Comments Follow Up Specialty Diagnoses / Procedures Referred By Sabina duggan Referred To Contact Cardiology / [facility] Diagnoses 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 (HCC) Essential hypertension Mixed hyperlipidemia Encounter for monitoring flecainide therapy Procedures OFFICE/OUTPATIENT ESTABLISHED MOD MDM 30-39 MIN EST PATIENT Elvin Vaca Huber DO [address] [place] [address] JoElvin DO [address] [place] [address] Reason Comments Future Appointment D[facility] Reason Comments Patient Education Reason Comments Schedule Surgery PVI ablation Reason Comments Received Outside Medical Records Reason Comments Patient Education Redo PVI/ Atypical A FL RFA Reason Comments transmitter Reason Onset Date Comments Transition Of Care 11/05/2021 [facility] D/C 11/04/[address] [facility] Reason Comments Prescription Refills Reason Onset Date Comments Refill Request 01/28/2022 Reason Onset Date Comments Refill Request 04/14/2022 Reason Onset Date Comments Refill Request 05/17/2022 Reason Comments Refill Request Reason Comments Consult Lipoma of torso Specialty Diagnoses / Procedures Referred By Sabina duggan Referred To Contact General Surgery / GENERAL SURGERY Diagnoses Lipoma of torso Procedures CONSULT TO GENERAL SURGERY OFFICE/OUTPATIENT NEW HIGH MDM 60-74 MINUTES OFFICE/OUTPATIENT NEW MODERATE MDM 45-[place] [address] [place] [id number] [facility] [address] [place] [address] Referral ID Status Reason Start Date Expiration Date V isits Requested Visits Authorized [id number] Closed PCP Requested Referral 06/29/2022 04/10/2023 1 1 Reason Comments Results Reason Comments Results Reason Comments Back Pain Referred by Dr Crouch for thoracic spine issues related possibly to a whole in his spinal cord? It has become more notable in the last month. Specialty Diagnoses / Procedures Referred By Sabina duggan Referred To Contact [facility] / INITIAL DEPT Diagnoses DDD (degenerative disc disease), thoracic Syringomyelia and syringobulbia (HCC) Procedures CONSULT TO [facility] OFFICE/OUTPATIENT NEW HIGH MDM 60-74 MINUTES OFFICE/OUTPATIENT NEW MODERATE MDM 45-59 MINUTES Parish Crouch MD [address] [place] [address] Initial Department Referral ID Status Reason Start Date Expiration Date Visits Re quested Visits Authorized [id number] Closed 07/26/2022 04/10/2023 1 1 Reason Comments 6 Month Exam Specialty Diagnoses / Procedures Referred By Sabina duggan Referred To Contact Family Medicine / FAMILY MEDICINE Diagnoses Follow-up examination 6 month follow up Procedures OFFICE/OUTPATIENT ESTABLISHED MOD MDM 30-39 MIN 4C EST Self Parish Crouch MD [address] [place] [address] Referral ID Status Reason Start Date Expiration Date Visits Re quested Visits Authorized [id number] Closed 09/15/2022 04/10/2023 1 1 Reason Onset Date Comments Refill Request 12/15/2022 Reason Onset Date Comments Refill Request 01/19/2023 Reason Comments Appointment Reason Onset Date Comments Refill Request 12/15/2023 Reason Onset Date Comments Refill Request 12/30/2023 Specialty Diagnoses / Procedures Referred By Sabina t Referred To Contact XR IMAGING Diagnoses Chest wall pain Procedures XR RIBS/CHEST 3V AP RIB/OBLS/CXR LEFT RADEX RIBS UNI W/POSTEROANT CH MINIMUM 3 VIEWS Parish Crouch MD [address] [place] [address] [place] [address] Referral ID Status Reason Start Date Expiration Date V isits Requested Visits Authorized [id number] Closed Auto-Generate d Referral 06/22/2022 04/10/2023 1 1 Reason Comments Follow Up Room 89 yr f/uEKG To dayC/o frequent chest pains, Palpitations - none nowC/o TachycardiaC/o overweightDr Willa oredered ZIO - fell off at one day Results -01/14/24Concern: New Onset R Knee and Calf Edema Care Teams (unrecognized sec tion and content) Railroad Dispatcher Relationship Specialty Start Date End Date Parish Crouch MD [address] [place], [place] [id number] PCP - General Family Practice 07/25/14 Elvin Vaca DO [facility] [place] [address] Primary Staff Physician Cardiology 05/14/21 Railroad Dispatcher Relationship Specialty Start Date End Date Parish Crouch MD [address] [place], [place] [id number] PCP - General Family Practice 07/25/14 Elvin Vaca DO [facility] [place] [address] Primary Staff Physician Cardiology 05/14/21 Railroad Dispatcher Relationship Specialty Start Date End Date Parish Crouch MD [address] [place] [address] PCP - General Family Practice 07/25/14 Elvin Vaca [facility] [place] [place] [address] Primary Staff Physician Cardiology 05/14/21 Railroad Dispatcher Relationship Specialty Start Date End Date Parish Crouch MD [address] [place] [address] PCP - General Family Practice 07/25/14 Elvin Vaca [facility] [place] [place] [address] Primary Staff Physician Cardiology 05/14/21 Railroad Dispatcher Relationship Specialty Start Date End Date Parish Crouch MD [address] [place] [address] PCP - General Family Practice 07/25/14 Elvin Vaca [facility] [place] [address] Primary Staff Physician Cardiology 05/14/21 Railroad Dispatcher Relationship Specialty Start Date End Date Parish Crouch MD [address] [place] [address] PCP - General Family Practice 07/25/14 Elvin Vaca DO [facility] [place] [address] Primary Staff Physician Cardiology 05/14/21 Railroad Dispatcher Relationship Specialty Start Date End Date Parish Crouch MD [address] [place] [address] PCP - General Family Practice 07/25/14 Elvin Vaca [facility] [place] [address] Primary Staff Physician Cardiology 05/14/21 Railroad Dispatcher Relationship Specialty Start Date End Date Parish Crouch MD [address] [place] [address] PCP - General Family Practice 07/25/14 Elvin Vaca [facility] [place] [address] Primary Staff Physician Cardiology 05/14/21 Railroad Dispatcher Relationship Specialty Start Date End Date Parish Crouch MD [address] [place] [address] PCP - General Family Practice 07/25/14 Elvin Vaca [facility] [place] [address] Primary Staff Physician Cardiology 05/14/21 Railroad Dispatcher Relationship Specialty Start Date End Date Parish Crouch MD [address] [place] [address] PCP - General Family Practice 07/25/14 Elvin Vaca [facility] [place] [address] Primary Staff Physician Cardiology 05/14/21 Railroad Dispatcher Relationship Specialty Start Date End Date Parish Crouch MD [address] [place] [address] PCP - General Family Practice 07/25/14 Elivn Vaca [facility] [place] [address] Primary Staff Physician Cardiology 05/14/21 Railroad Dispatcher Relationship Specialty Start Date End Date Parish Crouch MD [address] [place] [address] PCP - General Family Practice 07/25/14 Elvin Vaca [address] [place] [address] Primary Staff Physician Cardiology 05/14/21 Railroad Dispatcher Relationship Specialty Start Date End Date Parish Crouch MD [address] [place] [address] PCP - General Family Practice 07/25/14 Elvin Vaca [address] [place] [address] Primary Staff Physician Cardiology 05/14/21 Railroad Dispatcher Relationship Specialty Start Date End Date Parish Crouch MD [address] [place] [address] PCP - General Family Practice 07/25/14 Elvin Vaca [facility] [place] [place] [address] Primary Staff Physician Cardiology 05/14/21 Railroad Dispatcher Relationship Specialty Start Date End Date Parish Crouch MD [address] [place] [address] PCP - General Family Practice 07/25/14 Elvin Vaca [facility] [place] [place] [address] Primary Staff Physician Cardiology 05/14/21 Railroad Dispatcher Relationship Specialty Start Date End Date Parish Crouch MD [address] [place] [address] PCP - General Family Practice 07/25/14 Elvin Vaca DO [facility] [place] [address] Primary Staff Physician Cardiology 05/14/21 Railroad Dispatcher Relationship Specialty Start Date End Date Parish Crouch MD [address] [place] [address] PCP - General Family Medicine 07/25/14 Elvin Vaca [facility] [place] [place] [address] Primary Staff Physician Cardiology 05/14/21 Railroad Dispatcher Relationship Specialty Start Date End Date Parish Crouch MD [address] [place] [address] PCP - General Family Medicine 07/25/14 Elvin Vaca [facility] [place] [place] [address] Primary Staff Physician Cardiology 05/14/21 Railroad Dispatcher Relationship Specialty Start Date End Date Parish Crouch MD [address] [place] [address] PCP - General Family Medicine 07/25/14 Elvin Vaca [facility] [place] [place] [address] Primary Staff Physician Cardiology 05/14/21 Railroad Dispatcher Relationship Specialty Start Date End Date Parish Crouch MD [address] [place] [address] PCP - General Family Medicine 07/25/14 Elvin Vaca [facility] [place] [place] [address] Primary Staff Physician Cardiology 05/14/21 Railroad Dispatcher Relationship Specialty Start Date End Date Parish Crouch MD [address] [place] [address] PCP - General Family Medicine 07/25/14 Elvin Vaca [facility] [place] [place] [address] Primary Staff Physician Cardiology 05/14/21 Railroad Dispatcher Relationship Specialty Start Date End Date Praish Crouch MD [address] [place] [address] PCP - General Family Medicine 07/25/14 Elvin Vaca [facility] [place] [place] [address] Primary Staff Physician Cardiology 05/14/21 Railroad Dispatcher Relationship Specialty Start Date End Date Parish Crouch MD [address] [place] [address] PCP - General Family Medicine 07/25/14 Elvin Vaca [facility] [place] [address] Primary Staff Physician Cardiology 05/14/21 Railroad Dispatcher Relationship Specialty Start Date End Date Parish Crouch MD [address] [place] [address] PCP - General Family Medicine 07/25/14 Elvin Vaca [facility] [place] [place] [address] Primary Staff Physician Cardiology 05/14/21 Railroad Dispatcher Relationship Specialty Start Date End Date Parish Crouch MD [address] [place] [address] PCP - General Family Medicine 07/25/14 Elvin Vaca DO [facility] [place] [address] Primary Staff Physician Cardiology 05/14/21 Railroad Dispatcher Relationship Specialty Start Date End Date Parish Crouch MD [address] [place] [address] PCP - General Family Medicine 07/25/14 Elvin Vaca DO [address] [place] [address] Primary Staff Physician Cardiology 05/14/21 Railroad Dispatcher Relationship Specialty Start Date End Date Parish Crouch MD [address] [place] [address] PCP - General Family Medicine 07/25/14 Elvin Vaca DO [facility] [place] [address] Primary Staff Physician Cardiology 05/14/21 Railroad Dispatcher Relationship Specialty Start Date End Date Parish Crouch MD [address] [place] [address] PCP - General Family Medicine 07/25/14 Elvin Vaca DO [facility] [place] [address] Primary Staff Physician Cardiology 05/14/21 Railroad Dispatcher Relationship Specialty Start Date End Date Parish Crouch MD [address] [place] [address] PCP - General Family Medicine 07/25/14 Elvin Vaca DO [facility] [place] [address] Primary Staff Physician Cardiology 05/14/21 Darin Marte MD [address] [place] [address] Cardiology 01/18/23 Railroad Dispatcher Relationship Specialty Start Date End Date Parish Crouch MD [address] [place] [address] PCP - General Family Medicine 07/25/14 Elvin Vaca DO [address] [place] [address] Primary Staff Physician Cardiology 05/14/21 Darin Marte MD [address] [place] [address] Cardiology 01/18/23 Railroad Dispatcher Relationship Specialty Start Date End Date Parish Crouch MD [address] [place] [address] PCP - General Family Medicine 07/25/14 Elvin Vaca DO [address] [place] [address] Primary Staff Physician Cardiology 05/14/21 Darin Marte MD [address] [place] [address] Cardiology 01/18/23 Railroad Dispatcher Relationship Specialty Start Date End Date Parish Crouch MD [address] [place] [address] PCP - General Family Medicine 07/25/14 Elvin Vaca DO [address] [place] [address] Primary Staff Physician Cardiology 05/14/21 Darin Marte MD [address] [place] [address] Cardiology 01/18/23 Railroad Dispatcher Relationship Specialty Start Date End Date Parish Crouch MD [address] [place] [address] PCP - General Family Medicine 07/25/14 Elvin Vaca DO [address] [place] [address] Primary Staff Physician Cardiology 05/14/21 Darin Marte MD [address] [place] [address] Cardiology 01/18/23 Railroad Dispatcher Relationship Specialty [place] [address] [place] [address] PCP - General Family Medicine 07/25/14 Elvin Vaca DO [address] [place] [address] Primary Staff Physician Cardiology 05/14/21 Railroad Dispatcher Relationship Specialty [place] [address] [place] [address] PCP - General Family Medicine 07/25/14 Elvin Vaca DO [address] [place] [address] Primary Staff Physician Cardiology 05/14/21 Railroad Dispatcher Relationship Specialty [place] [address] [place] [address] PCP - General Family Medicine 07/25/14 Elvin Vaca DO [address] [place] [address] Primary Staff Physician Cardiology 05/14/21 Darin Marte MD [address] [place] [address] Cardiology 01/18/23 Railroad Dispatcher Relationship Specialty Start Date End Date Parish Crouch MD [address] [place], [place] [address] PCP - General Family Medicine 07/25/14 Elvin Vaca DO [address] [place], [place] [id number] Primary Staff Physician Cardiology 05/14/21 Darin Marte MD [address], [place] [id number] Cardiology 01/18/23 FOR RECORDS PERTAINING TO PATIENTS WHO ARE OR HAVE BEEN ENROLLED IN A CHEMICAL DEPENDENCY/SUBSTANCEABUSE PROGRAM, SOME INFORMATION MAY BE OMITTED. This clinical summary was aggregated from multiple sources. Caution should be exercised in using it in the provision of clinical care. This summary normalizes information from multiple sources, and as a consequence, information in this document may materially change the coding, format and clinical context of patient data. In addition, data may be omitted in some cases. CLINICAL DECISIONS SHOULD BE BASED ON THE PRIMARY CLINICAL RECORDS. [employer] provides no warranty or guarantee of the accuracy or completeness of information in this document.
--- NOTE | 2024-02-02 21:05 | ED.VIS.LOWEX ---
HPI History of Present Illness Chief Complaint: Lower Extremity Injury Informant: patient and spouse/S.O. Narrative Narrative: Patient has spontaneous onset of soreness and swelling tenderness at his kneecap of the right knee about 6 days ago. He states he remembers kneeling but he denies any injury that he knows of. He states the swelling moved downward, it was suprapatellar but no longer is there, and now he is seeing a lot of bruising in the popliteal area and distal in the calf and leg where there is also some mild swelling. He denies any systemic symptoms or fevers. He still able to walk on it. Bending it actually is worse than keeping it straight which is better. He is on baby aspirin and Eliquis. He states he had A-fib but had an ablation 3 years ago does not have A-fib anymore but his depilatory painter wants him to be on anticoagulant for unknown reasons. [facility] Medical History (Updated 02/02/24 @ 21:[address] J Luis Vale MD) Syringomyelia A-fib Home Medications ?Medication ?Instructions ?Recorded ?Last Taken ?Type atenolol 50 mg tablet 50 mg PO DAILY 10/03/13 Unknown History magnesium oxide 400 mg (241.3 mg 400 mg PO DAILY ##30 10/03/13 Unknown Rx magnesium) tablet Allergy/AdvReac Type Severity Reaction Status Date / Time No Known Allergies Allergy Verified 10/03/13 15:57 Surgical History (Updated 02/02/24 @ 21:[address] J Luis Vale MD) History of radiofrequency ablation (RFA) procedure for cardiac arrhythmia Social History Smoking Status: Current some day smoker tobacco type: cigarettes ROS ROS ED Constitutional Constitutional ED: Denies chills or fever(s) Musculoskeletal Musculoskeletal: Reports extremity pain; Denies neck pain Integumentary Denies Abrasions, rash or wounds Neurologic Neurologic: Denies paresthesias or weakness Hematologic/Lymphatic Hematologic/Lymphatic: Reports easy bleeding and easy bruising EXAM Physical Exam Const Vital Signs: 02/02/24 17:12 Temperature 98.7 F Temperature Source Oral Pulse Rate 82 Respiratory Rate 16 Blood Pressure 127/96 H Blood Pressure Mean 106 Pulse Ox 98 Oxygen Delivery Method Room Air Positive well nourished and well developed General Appearance ED: well developed and NAD Neck full ROM and supple Back/Spine normal ROM and normal to inspection Extremity Extremity Narrative: Patient has a mildly tender, very swollen prepatellar bursa right knee, he has no other areas of focal swelling and he can bend the knee fully without any difficulty. He can also extend it without any difficulty or significant pain. There is no erythema to suggest acute infection and there is no lymphangitis or inguinal lymphadenopathy. Distally, there is ecchymosis and purpura in the calf area and in the popliteal fossa as well. There is no palpable cords. All compartments are soft and nondistended he has full range of motion of the knee and ankle without any discomfort or tingling. Intact distal pulse posterior tibial. Neuro oriented x3, no focal motor deficits and no sensory deficits noted Sensorium / Orientation: alert Psych mental status grossly normal and thought process normal Skin no wounds Rashes: no rashes MDM MDM MDM Narrative Medical decision making narrative: The patient has normal vital signs and no systemic symptoms to suggest acute blood loss anemia or DVT or PE here; I think this is hemorrhagic prepatellar bursitis due to minor trauma, kneeling on it and the fact that he is anticoagulated on Eliquis. The bruising distally I think is related to prepatellar blood draining with gravity down fascial planes. This does not indicate an acute DVT. He has no erythema spreading proximally to suggest an infectious bursitis. He states it is warm, and I advised him that hemorrhagic bursitis can do this. My suggestion at this time would be to compress it with an Abad wrap which we gave him, ice as needed, avoid applying heat to it so as not to encourage recurrent bleeding, and discontinue his Eliquis, at least 5 days, discussing with his depilatory painter whether he can discontinue it permanently. He is comfortable with that plan. Discharge Plan Triage Chief Complaint: Lower Extremity Injury ED Provider: J Luis Vale Dx/Rx/DC Orders Clinical Impression: Hemorrhagic prepatellar bursitis of right knee, Anticoagulated Instructions: Understanding Prepatellar Bursitis Prescriptions: No Action atenolol 50 MG tablet 50 mg PO DAILY magnesium oxide 400 MG tablet 400 mg PO DAILY Qty: 30 0RF Primary Care Provider: Parish Borrero Referrals: Parish Borrero MD [Primary Care Provider] - 1 Week if not improving Activity Restrictions/Additional Instructions: Discontinue your Eliquis for at least 5 days; consider talking with your Knowledge Manager about potentially discontinuing it permanently. Wrap for compression, ice as needed; redness that starts spreading UPWARDS suggests infection, which is thought to be unlikely here. If that occurs, feel free to return to ER for reevaluation. Print Language: Azeri Disposition Disposition: Home, Self Care
[2024-02-02 21:12] VITALS: BP 134/84; PULSE 77; RESP 16; O2SAT 93
[2024-02-02 21:28] VITALS: BP 134/84; PULSE 77; RESP 16; TEMP 36.7; O2SAT 93
== END 2024-02-02 21:31 | disposition home or self-care (01) ==
PROVIDERS: Emergency Provider Emergency Medicine; PCP Family Medicine; Visit Provider Emergency Medicine
DX: M70.41 Prepatellar bursitis, right knee (principal); I48.91 Unspecified atrial fibrillation; Z79.01 Long term (current) use of anticoagulants; Z79.82 Long term (current) use of aspirin; M25.061 Hemarthrosis, right knee; F17.210 Nicotine dependence, cigarettes, uncomplicated
CPT/HCPCS: 99282